=== PATIENT | male | born 1970 | race Caucasian/White ===

== ENCOUNTER 2018-10-21 12:17 | Observation (INO) | payer OTHER, SELFPAY ==
[2018-10-21] VITALS (11 sets, daily range): BP systolic 154–212; BP diastolic 97–131; PULSE 79–105; RESP 14–20; TEMP 36.8–37.1; O2SAT 98–99; BMI 44.3; BMI 43.5; BMI 44.4
--- NOTE | 2018-10-21 12:29 | EKG12_ITS ---
Test Reason : CHESST PRESSURE Blood Pressure : / mmHG Vent. Rate : 102 BPM Atrial Rate : 102 BPM P-R Int : 152 ms QRS Dur : 098 ms QT Int : 350 ms P-R-T Axes : 026 052 057 degrees QTc Int : 456 ms Sinus tachycardia Otherwise normal ECG Confirmed by ZION ROMERO, RIGO ([id number]), editor in chief newspaper REJI LIN ([id number]) on 10/23/2018 3:51:19 PM Referred By: Zofia Ba Confirmed By:RIGO DONOVAN MD
--- NOTE | 2018-10-21 12:29 | RAD_ITS ---
STUDY: X-RAY CHEST REASON FOR EXAM: Male, 48 years old. Intermittent chest pain. TECHNIQUE: Single AP portable view of the chest. COMPARISON: None. FINDINGS: EKG electrodes are seen. Elevation of the right hemidiaphragm. Scattered calcified granulomas. There is no demonstrated pleural abnormality. There is mild cardiac enlargement. Normal mediastinum and rebecca. Normal visualized pulmonary arteries. There is atherosclerotic tortuosity of the aortic arch and descending thoracic aorta. Normal visualized thoracic spine. Normal visualized ribs, clavicles, and shoulders. There is no demonstrated abnormality of the visualized soft tissue structures of the upper abdomen. RAD/Chest 1 View (Portable) IMPRESSION: Cardiomegaly. Electronically Signed: Fabiano Knight, at 13:10 EST , Service support ,
--- NOTE | 2018-10-21 12:35 | NURSING ---
NO OLD EKG TO OBTAIN.
[2018-10-21 12:54] LABS: Absolute Lymphocyte Count 2.76 X10^3/ul (0.83-4.51); Basophil# 0.02 X10^3/uL; Basophil% 0.2 % (0-1); Eosinophil# 0.15 X10^3/uL; Eosinophils% 1.4 % (0-5); Hematocrit 45.6 % (40-54); Hemoglobin 15.4 g/dl (13.0-16.5); Lymphocyte # 2.76 X10^3/ul (4.0); Lymphocyte % 25.7 % (19-41); Mean Corp Hgb Conc 33.8 g/gl (32-36); Mean Corpuscular Hgb 29.9 pg (27.0-32.0); Mean Corpuscular Volume 88.5 fL (80-94); Mean Platelet Vol. 10.4 fl (6.2-12.0); Monocyte# 0.75 X10^3/uL; Neutrophil # 7.03 X10^3/uL (2.7-7.7); Neutrophil % 65.5 % (47-70); POSITIVE COUNT NO; POSITIVE DIFFERENTIAL NO; POSITIVE MORPHOLOGY NO; Platelet Count 192 K/mm3 (150-450); RBC Distribution Width CV 12.6 % (11.6-14.6); RBC Distribution Width SD 40.4 fl (35.1-43.9); Red Blood Count 5.15 M/mm3 (4.6-6.2); White Blood Count 10.7 K/mm3 (4.4-11.0)
[2018-10-21 13:11] LABS: Anion Gap 11 (5-15); BUN 12 mg/dL (7-18); BUN/Creat Ratio 10.7 RATIO (10-20); Calcium,Total 9.1 mg/dL (8.5-10.1); Chloride 101 mmol/L (98-107); Creatinine, Serum 1.12 mg/dL (0.70-1.30); EST Glomerular Filtration Rate 75 mL/min (>60); Est Glom Filt Rate - Afr Amer 91 mL/min (>60); Estimated Creatinine Clearance 93.14 ml/min; Glucose 326 mg/dL (74-106); Potassium 3.6 mmol/L (3.5-5.1); Sodium Level 139 mmol/L (136-145)
[2018-10-21] MEDS: hydrALAZINE 20 MG/ML Vial 10 MG IV ×2 (13:29→17:42)
[2018-10-21] MEDS: Aspirin 81 MG TAB.CHEW 324 MG PO (14:28)
--- NOTE | 2018-10-21 14:28 | NURSING ---
102 WHITE CP, HTN, URG, NEW DM
--- NOTE | 2018-10-21 15:22 | PCM.HP.STD ---
Problem List (1) Chest pain Status: Acute (2) Hypertensive urgency Status: Acute (3) Diabetes type 2, uncontrolled Status: Acute (4) Morbid obesity Status: Chronic History of Present Illness Date of Admission: 10/21/18 Chief Complaint: elevated blood pressure The patient is a 48 year old M with no pmhx on no medications who does not have a PCP presents to the ER concerned about his blood pressure being elevated. He states that he had it checked today and it was 204/142, prompting him to come to the ER. He also has been experiencing chest pain off and on for the past 4 days. He states that it feels like a tight pressure, similar to a tight shirt squeezing him. Currently it is a 1/10 pain. He denies any SOB at rest or with exertion. He has no radiation of the pain. No aggravating or alleviation factors. He has no nausea, headache, blurry vision, LE edema. His mom and dad do not have a history of coronary disease. He has never smoked. He was also discovered in the ER to have severely elevated Blood sugar at 326. [] Past Medical History Past Medical History (Chronic Problems): Chronic Problems Morbid obesity (Chronic) Allergies No Known Allergies Allergy (Verified 10/21/18 12:20) Home Medications: Ambulatory Orders Medication Instructions Recorded Ibuprofen 600 mg PO PRN PRN 10/21/18 Surgical History: tonsillectomy Psychiatric History: No pertinent psych hx Lives: With Family Smoking Status: Never smoker Tobacco Use: Non-smoker Alcohol: Occasional Drugs: None - *Family History Maternal History Items: Hypertension Paternal History Items: Cancer - pancreatic, Diabetes Review of Systems Constitutional: Denies: Chills, Fever, Weight Change HEENT: Denies: Head Aches, Sinus Congestion, Sinus Drainage Cardiovascular: Reports: Chest Pain, Chest Tightness. Denies: Light Headedness, Palpitations, Syncope Respiratory: Denies: Cough, Shortness of breath at rest, Sputum production Gastrointestinal: Denies: Abdominal Pain, Nausea, Vomiting Genitourinary: Denies: Dysuria Musculoskeletal: Denies: Joint Pain, Joint Tenderness Skin: Denies: Rash, Wounds Neurological: Denies: Numbness, Tingling, Focal weakness Psychiatric: Denies: Anxiety, Depression, Homicidal Ideations, Suicidal Ideations Hematologic/ Lymphatic: Denies: Easy Bruising, Easy Bleeding VTE Information - Inpt Only VTE Present on Admission: No VTE Mechan Device Prophylaxis: None VTE Pharm Prophylaxis ordered?: Yes Patient Problems: Active and Suspected Problems Chest pain (Acute) Hypertensive urgency (Acute) Diabetes type 2, uncontrolled (Acute) - Physical Exam General: Alert, Oriented x3, Cooperative HEENT: Atraumatic, PERRLA, EOMI, Normocephalic Neck: Supple, No JVD, Negative Carotid Bruits Lungs: Clear to auscultation, Normal air movement Cardiovascular: Regular rate, No murmurs Abdomen: Bowel Sounds Present, Soft, Non Tender Extremities: No edema, Capillary Refill Less than 3 Seconds Skin: No rashes, No breakdown Musculoskeletal: No Tenderness to Palpation of Joints or Extremities Neurological: Cranial nerves II-XII grossly intact Psych/Mental Status: Normal Affect, Appropriate Vital Signs Temp Pulse Resp BP Pulse Ox 98.7 F 105 H 14 170/104 H 99 10/21/18 12:17 10/21/18 14:25 10/21/18 14:25 10/21/18 14:25 10/21/18 14:25 Oxygen Delivery Method Room Air Weight: 336 lb 3.279 oz Body Mass Index (BMI) 44.3 Laboratory Tests Past 24 Hrs 10/21/18 10/21/18 12:25 12:25 WBC 10.7 RBC 5.15 Hgb 15.4 Hct 45.6 MCV 88.5 MCH 29.9 MCHC 33.8 RDW 12.6 RDW Differential 40.4 Plt Count 192 MPV 10.4 Immature Gran % (Auto) 0.200 Neut % (Auto) 65.5 Lymph % (Auto) 25.7 [place] % (Auto) 7.0 Eos % (Auto) 1.4 Baso % (Auto) 0.2 Absolute Neuts (auto) 7.0 Absolute Lymphs (auto) 2.76 Total Counted Not Reportable Sodium 139 Potassium 3.6 Chloride 101 Carbon Dioxide 27.0 Anion Gap 11 BUN 12 Creatinine 1.12 Estim Creat Clear Calc 93.14 Est GFR (MDRD) Af Amer 91 Est GFR (MDRD) Non-Af 75 BUN/Creatinine Ratio 10.7 Glucose 326 H Calcium 9.1 Troponin I < 0.015 Assessment/Plan All Active Problems Chest pain (Acute) Hypertensive urgency (Acute) Diabetes type 2, uncontrolled (Acute) 1. Chest pain - CXR/Trop, EKG neg. Cycle enzymes, repeat AM ekg. Nuclear stress in AM. PRN nitro. Check lipid panel. 2. HTN urgency - start Lisinopril/HCTZ. PRN hydralazine. 3. New onset DMt2 with morbid obesity - start SSI + Weight based lantus. Check A1C. Nutrition/diabetic education. 4. Multiple risk factors for SHOLA - recommend o/p sleep study. DVT ppx: lovenox This patient was seen by Jose Miguel Jose PA-C under the supervision of Dr. Ba.
--- NOTE | 2018-10-21 15:48 | CASEMGMT ---
RN CM Assessment Introduced role of RN CM to patient and Zahida at bedside. Patient is alert, oriented and able to participate in RN CM Assessment. Care providers, pharmacy, and demographics verified. Presentation: Admitted for CP, Hypertensive Urgency, New DM PCP: None. Patient states applied this morning to [place]. Preferred Pharmacy: [facility] Insurance: MMO Prescription Benefit: Yes LNOK: Zahida Jiménez Living Arrangements: Lives with in a 2 story home. Works for [employer]. Independent with ambulation and ADL's. Transportation: Drives, Zahida to drive on [place]. DME: None, no preference, prefers DME Company affiliated with his Insurance plan. HHC: None in past, no preference on Agency. SNF: None in past, no preference on Agency. DC PLAN: Home with , may need HH RN for DM Education/teaching, DME Glucometer. May need list of in network PCP's. S. CASH Rosario
--- NOTE | 2018-10-21 15:57 | EKG12_ITS ---
Test Reason : CP Blood Pressure : / mmHG Vent. Rate : 083 BPM Atrial Rate : 083 BPM P-R Int : 154 ms QRS Dur : 100 ms QT Int : 396 ms P-R-T Axes : 038 -01 000 degrees QTc Int : 465 ms Normal sinus rhythm Normal ECG No previous ECGs available Confirmed by ZION ROMERO, RIGO ([id number]), staff editor REJI LIN ([id number]) on 10/23/2018 4:00:39 PM Referred By: Zofia Ba Confirmed By:RIGO DONOVAN MD
--- NOTE | 2018-10-21 16:07 | ED.VISSUMM ---
- ER Visit Summary Date of Service: 10/21/18 Chief Complaint: Chest pain History of Present Illness: The patient is a 48 M who presents the emergency department with intermittent chest tightness. He states that on Saturday he began having indigestion-like sensation bloating and pressure in his chest. He was good all weekend but returned more severe today. This made him wish to seek evaluation. He states that about 10 days ago he was at physical therapy for a Workmen's Comp. hand crush injury was noticed that his blood pressure was 202/135 he was advised he needed to see primary care. He has not yet established a primary care but is in the process of doing so. At school this morning blood pressure was 202/142. He does not smoke. He does not currently take any medications. He is concerned he may be diabetic. He has no first-degree relatives with coronary artery disease. He is not had any aspirin. Physical Examination: Afebrile noted hypertension 212/131 Gen: Well-nourished well-developed obese Head: Normocephalic atraumatic Eyes: Perrl EOMI ENT: TMs clear no rhinorrhea moist mucous membranes Neck: Supple no lymphadenopathy no JVD nontender CVS: Regular rate rhythm no murmurs normal S1-S2 Respiratory: No distress clear to auscultation bilaterally chest nontender Abdomen: Soft nontender nondistended normal bowel sounds no masses Back: Nontender Extremity: Nontender no edema Skin: Normal color no rash Neuro: alert orientated ?3 CN II-XII intact normal strength sensation reflexes gait cerebellar Psych: Normal affect normal mood Test Results: Blood sugar 326. Initial troponin negative. EKG sinus at a rate of 102 without ACS features. Chest x-ray showed mild cardiomegaly. Emergency Department Course and Treatment: Patient received aspirin and hydralazine blood pressure is improved. His blood pressure has. Patient essentially has undiagnosed hypertension. It does fall into the hypertensive urgency category. He has untreated diabetes. He is obese. JAN risk score is 1. Plan is admission into the hospital for further care. Impression: 1. Acute chest pain 2. Hypertensive urgency 3. New onset diabetes This note was generated with [employer] dictation software. It may contain incorrect words, spelling, and punctuation that were not noted in review of the chart prior to signing ED Disposition - Plan for ED Patient: Disposition: Acute [facility]
--- NOTE | 2018-10-21 16:10 | ED.DCSUM_ITS ---
- ER Visit Summary Date of Service: 10/21/18 Chief Complaint: Chest pain History of Present Illness: The patient is a 48 M who presents the emergency department with intermittent chest tightness. He states that on Saturday he began having indigestion-like sensation bloating and pressure in his chest. He was good all weekend but returned more severe today. This made him wish to seek evaluation. He states that about 10 days ago he was at physical therapy for a Workmen's Comp. hand crush injury was noticed that his blood pressure was 202/135 he was advised he needed to see primary care. He has not yet established a primary care but is in the process of doing so. At school this morning blood pressure was 202/142. He does not smoke. He does not currently take any medications. He is concerned he may be diabetic. He has no first- degree relatives with coronary artery disease. He is not had any aspirin. Physical Examination: Afebrile noted hypertension 212/131 Gen: Well-nourished well-developed obese Head: Normocephalic atraumatic Eyes: Perrl EOMI ENT: TMs clear no rhinorrhea moist mucous membranes Neck: Supple no lymphadenopathy no JVD nontender CVS: Regular rate rhythm no murmurs normal S1-S2 Respiratory: No distress clear to auscultation bilaterally chest nontender Abdomen: Soft nontender nondistended normal bowel sounds no masses Back: Nontender Extremity: Nontender no edema Skin: Normal color no rash Neuro: alert orientated ?3 CN II-XII intact normal strength sensation reflexes gait cerebellar Psych: Normal affect normal mood Test Results: Blood sugar 326. Initial troponin negative. EKG sinus at a rate of 102 without ACS features. Chest x-ray showed mild cardiomegaly. Emergency Department Course and Treatment: Patient received aspirin and hydralazine blood pressure is improved. His blood pressure has. Patient essentially has undiagnosed hypertension. It does fall into the hypertensive urgency category. He has untreated diabetes. He is obese. JAN risk score is 1. Plan is admission into the hospital for further care. Impression: 1. Acute chest pain 2. Hypertensive urgency 3. New onset diabetes This note was generated with [employer] dictation software. It may contain incorrect words, spelling, and punctuation that were not noted in review of the chart prior to signing ED Disposition - Plan for ED Patient: Disposition: Acute [facility]
[2018-10-21 16:30] LABS: Magnesium 1.9 mg/dL (1.6-2.6); Thyroid Stim Hormone (TSH) 1.35 uIU/mL (0.358-3.74)
[2018-10-21 16:35] LABS: Bedside Glucose 261 mg/dL (70-110)
[2018-10-21 17:08] LABS: Hemoglobin A1c 10.5 % (4.2-6.3)
[2018-10-21] MEDS: Insulin Lispro 100 UNIT/ML INSULN.PEN SC ×2 (17:43→22:16)
[2018-10-21] MEDS: Acetaminophen 325 MG Tablet 650 MG PO (20:16)
[2018-10-21 22:20] LABS: Bedside Glucose 264 mg/dL (70-110)
[2018-10-22] VITALS (16 sets, daily range): BP systolic 149–173; BP diastolic 93–107; PULSE 80–90; RESP 16–18; TEMP 36.6–37; O2SAT 98–99
[2018-10-22] MEDS: 0.9% Normal Saline 1,000 ML 100 ML IV (00:12)
[2018-10-22] MEDS: Acetaminophen 325 MG Tablet 650 MG PO (04:11)
[2018-10-22] MEDS: hydrALAZINE 20 MG/ML Vial 10 MG IV (04:11)
[2018-10-22 05:24] LABS: Hematocrit 42.2 % (40-54); Hemoglobin 14.5 g/dl (13.0-16.5); Mean Corp Hgb Conc 34.4 g/gl (32-36); Mean Corpuscular Hgb 30.5 pg (27.0-32.0); Mean Corpuscular Volume 88.8 fL (80-94); Mean Platelet Vol. 10.4 fl (6.2-12.0); Platelet Count 182 K/mm3 (150-450); RBC Distribution Width CV 12.6 % (11.6-14.6); RBC Distribution Width SD 40.4 fl (35.1-43.9); Red Blood Count 4.75 M/mm3 (4.6-6.2)
[2018-10-22] MEDS: Lisinopril 20 MG Tablet PO (05:36)
[2018-10-22] MEDS: Aspirin E.C. 81 MG Tablet PO (05:36)
[2018-10-22 05:43] LABS: ALB/GLOB Ratio 0.9 RATIO (0.9-2.4); AST(SGOT) 23 U/L (15-37); Alanine Aminotransfer ALT/SGPT 36 U/L (16-61); Albumin, Serum 3.3 g/dL (3.2-5.0); Alkaline Phosphatase 129 U/L (45-117); Anion Gap 12 (5-15); BUN 11 mg/dL (7-18); BUN/Creat Ratio 14.1 RATIO (10-20); Calcium,Total 8.4 mg/dL (8.5-10.1); Chloride 103 mmol/L (98-107); Cholesterol 137 mg/dL (200); Creatinine, Serum 0.78 mg/dL (0.70-1.30); EST Glomerular Filtration Rate 114 mL/min (>60); Est Glom Filt Rate - Afr Amer 138 mL/min (>60); Estimated Creatinine Clearance 133.74 ml/min; Globulin 3.7 g/dL (2.2-4.2); Glucose 271 mg/dL (74-106); High Density Lipoprotein 33 mg/dL; Potassium 3.3 mmol/L (3.5-5.1); Sodium Level 140 mmol/L (136-145); Triglycerides 209 mg/dL; Very Low Density Lipoprotein 42 mg/dL (5-40)
[2018-10-22 05:44] LABS: Scan Indicated on CBC? Y/N NO
[2018-10-22 05:54] LABS: International Normalized Ratio 1.1; Partial Thromboplast Time 27.3 Seconds (24.1-36.2); Prothrombin Time (Protime)PT. 13.8 SECONDS (11.7-14.9)
--- NOTE | 2018-10-22 05:55 | EKG12_ITS ---
Test Reason : AM EKG Blood Pressure : / mmHG Vent. Rate : 094 BPM Atrial Rate : 094 BPM P-R Int : 152 ms QRS Dur : 102 ms QT Int : 390 ms P-R-T Axes : 043 030 005 degrees QTc Int : 487 ms Normal sinus rhythm Prolonged QT Abnormal ECG When compared with ECG of 21-OCT-2018 16:02, MANUAL COMPARISON REQUIRED, DATA IS UNCONFIRMED Confirmed by ZION ROMERO, RIGO ([id number]), writer editor REJI LIN ([id number]) on 10/23/2018 4:07:53 PM Referred By: Zofia Ba Confirmed By:RIGO DONOVAN MD
[2018-10-22 06:41] LABS: Bedside Glucose 264 mg/dL (70-110)
[2018-10-22] MEDS: Magnesium Oxide 400 MG Tablet 800 MG PO (09:15)
[2018-10-22] MEDS: Insulin Lispro 100 UNIT/ML INSULN.PEN SC ×3 (11:35→21:51)
[2018-10-22 11:45] LABS: Bedside Glucose 269 mg/dL (70-110)
--- NOTE | 2018-10-22 11:50 | STRESSREP ---
Stress Test Report Pharmacologic myocardial perfusion stress test. 48-year-old man with a history of chest pain. Stress protocol: Resting EKG demonstrates normal sinus rhythm with a rate of 88 bpm blood pressure is 166/118 mmHg. 0.4 mg of regadenoson was infused per usual protocol followed Intravenous infection injection continuous EKG monitoring was performed. The maximum heart rate attained was 116 bpm which was 66% maximal protected heart rate. The maximum workload was 1 metabolic equivalent. At rest there were no ST or T wave changes noted to suggest ischemia at peak infusion nonspecific ST-T wave changes were noted. No clinical angina was noted the resting blood pressure was 166/8018 maximum pressure was 170/112 mmHg. Myocardial perfusion protocol. 14.9 mCi of technetium 99m sestamibi was injected at rest. 0.4 mg of regadenoson was infused per usual protocol. At peak infusion 44.8 mCi of technetium 99m sestamibi was injected and stress images were obtained stress and rest images were reconstructed and compared in the short axis vertical and horizontal long axis. Gated images were also obtained the next Perfusion SPECT analysis: Review of the stress images demonstrate normal uptake of tracer noted in all areas of myocardium. The resting images similarly demonstrate normal uptake of tracer noted in all areas of the myocardium. No evidence of reversibility and did suggest ischemia. Gated SPECT analysis: The gated ejection fraction is noted to be 58%. Conclusion: Normal pharmacologic myocardial perfusion stress test. Preserved ejection fraction.
[2018-10-22] MEDS: hydroCHLOROthiazide 25 MG Tablet PO (12:06)
--- NOTE | 2018-10-22 12:46 | ECHOD_ITS ---
Reason For Study: CP Procedure This was a 2D Doppler, Color Flow transthoracic echocardiogram. Exam performed portable in patient room. Left Ventricle Normal size and thickness. The estimated ejection fraction is 65 %. Normal diastology for age. No regional wall motion abnormalities noted. Right Ventricle Normal size and thickness. Normal systolic function. Atria Normal left atrium. Normal right atrium. Normal atrial septum. Mitral Valve The mitral valve is structurally normal. No prolapse or stenosis seen. Tricuspid Valve Normal tricuspid valve. Unable to estimate RV systolic pressure due to inadequate jet, pulmonary artery pressure probably normal. Pulmonic Valve Normal pulmonic valve. Great Vessels Normal aortic root. Normal arch. Normal inferior vena cava. Inferior vena cava collapse with sniff. Pericardium/Pleural No pericardial effusion. MMode/2D Measurements & Calculations LVIDd: 5.0 cm IVSd: 1.6 cm Ao root diam: 4.0 cm LVIDs: 3.5 cm LVPWd: 1.6 cm LA dimension: 4.5 cm FS: 31.3 % LAV(MOD-sp4): 61.3 ml LA A4 area: 20.8 cm2 Time Measurements MV dec time: 0.17 sec Doppler Measurements & Calculations MV E max domenico: 78.9 cm/sec Lat Peak E' Domenico: 7.7 cm/sec Med Peak E' Domenico: 6.3 cm/sec MV A max domenico: 83.2 cm/sec E/E' lat: 10.3 E/E' med: 12.6 MV E/A: 0.95 MV V2 max: 94.4 cm/sec MV P1/2t max domenico: 79.0 cm/sec Ao V2 max: 127.1 cm/sec MV max P.6 mmHg MV P1/2t: 75.2 msec Ao max P.5 mmHg MV V2 mean: 55.5 cm/sec Ao V2 mean: 89.3 cm/sec MV mean P.4 mmHg MV dec slope: 307.7 cm/sec2 Ao mean P.5 mmHg MV V2 VTI: 21.6 cm MVA(P1/2t): 2.9 cm2 Ao V2 VTI: 22.6 cm LV V1 max: 114.7 cm/sec PA V2 max: 99.2 cm/sec LV V1 max P.3 mmHg LV V1 mean P.5 mmHg LV V1 mean: 74.1 cm/sec LV V1 VTI: 19.6 cm Interpretation Summary The estimated ejection fraction is 65 %. Normal diastology for age. Unable to estimate RV systolic pressure due to inadequate jet, pulmonary artery pressure probably normal. There is no comparison study available. Ordering Physician: Jose Miguel Jose Referring Physician: Zofia Ba Performed By: Franki Garner RCS
[2018-10-22] MEDS: Metoprolol(XL)Succ 50 MG Tablet PO (13:08)
--- NOTE | 2018-10-22 14:42 | PN_ITS ---
<Jose Miguel Jose - Last Filed: 10/22/18 14:39> Subjective: FARRELL early this AM, resolved with tylenol. No further CP, no tightness/heaviness/squeezing. No palp or LH. Negative stress test this AM. Pt agreeable to one more night to improve glucose and blood pressure. - Physical Exam General: Alert, Oriented x3, Cooperative HEENT: Atraumatic, PERRLA, EOMI, Normocephalic Neck: Supple, No JVD, Negative Carotid Bruits Lungs: Clear to auscultation, Normal air movement Cardiovascular: Regular rate, No murmurs Abdomen: Bowel Sounds Present, Soft, Non Tender, Obese Extremities: No edema, Capillary Refill Less than 3 Seconds Skin: No rashes, No breakdown Musculoskeletal: No Tenderness to Palpation of Joints or Extremities Neurological: Cranial nerves II-XII grossly intact Psych/Mental Status: Normal Affect, Appropriate Vital Signs Temp Pulse Resp BP Pulse Ox 98.2 F 87 18 167/103 H 98 10/22/18 12:40 10/22/18 13:08 10/22/18 12:40 10/22/18 13:08 10/22/18 12:40 Oxygen Delivery Method Room Air Weight: 330 lb 0.512 oz Body Mass Index (BMI) 43.5 Intake and Output for Last 24 Hours 10/20/18 10/21/18 10/22/18 23:59 23:59 23:59 Intake Total 240 / 240 1508 / 1508 Balance 240 / 240 1508 / 1508 Laboratory Tests Past 24 Hrs 10/21/18 10/21/18 10/21/18 12:25 12:25 16:34 WBC RBC Hgb Hct MCV MCH MCHC RDW RDW Differential Plt Count MPV PT INR APTT Sodium Potassium Chloride Carbon Dioxide Anion Gap BUN Creatinine Estim Creat Clear Calc Est GFR (MDRD) Af Amer Est GFR (MDRD) Non-Af BUN/Creatinine Ratio Glucose Hemoglobin A1c 10.5 H Calcium Magnesium 1.9 Total Bilirubin AST ALT Alkaline Phosphatase Troponin I < 0.015 Total Protein Albumin Globulin Albumin/Globulin Ratio Triglycerides Cholesterol LDL Cholesterol VLDL Cholesterol HDL Cholesterol TSH 1.35 10/21/18 10/22/18 10/22/18 20:05 05:04 05:04 WBC 10.0 RBC 4.75 Hgb 14.5 Hct 42.2 MCV 88.8 MCH 30.5 MCHC 34.4 RDW 12.6 RDW Differential 40.4 Plt Count 182 MPV 10.4 PT INR APTT Sodium 140 Potassium 3.3 L Chloride 103 Carbon Dioxide 25.0 Anion Gap 12 BUN 11 Creatinine 0.78 Estim Creat Clear Calc 133.74 Est GFR (MDRD) Af Amer 138 Est GFR (MDRD) Non-Af 114 BUN/Creatinine Ratio 14.1 Glucose 271 H Hemoglobin A1c Calcium 8.4 L Magnesium Total Bilirubin 0.90 AST 23 ALT 36 Alkaline Phosphatase 129 H Troponin I < 0.015 Total Protein 7.0 Albumin 3.3 Globulin 3.7 Albumin/Globulin Ratio 0.9 Triglycerides 209 H Cholesterol 137 LDL Cholesterol 62 VLDL Cholesterol 42 H HDL Cholesterol 33 L TSH 10/22/18 05:04 WBC RBC Hgb Hct MCV MCH MCHC RDW RDW Differential Plt Count MPV PT 13.8 INR 1.1 APTT 27.3 Sodium Potassium Chloride Carbon Dioxide Anion Gap BUN Creatinine Estim Creat Clear Calc Est GFR (MDRD) Af Amer Est GFR (MDRD) Non-Af BUN/Creatinine Ratio Glucose Hemoglobin A1c Calcium Magnesium Total Bilirubin AST ALT Alkaline Phosphatase Troponin I Total Protein Albumin Globulin Albumin/Globulin Ratio Triglycerides Cholesterol LDL Cholesterol VLDL Cholesterol HDL Cholesterol TSH POC Glucose 10/22/18 10/22/18 10/21/18 11:33 06:37 22:15 POC Glucose 269 H 264 H 264 H 10/21/18 16:09 POC Glucose 261 H Medical Necessity - Tobacco Use Smoking Status: Never smoker Tobacco Use: Non-smoker Assessment/Plan All Active Problems Chest pain (Acute) Hypertensive urgency (Acute) Diabetes type 2, uncontrolled (Acute) 1. Chest pain - CXR/Trop, EKG neg. enzymes negative, repeat ekg negative. Nuclear stress was negative. Lipid panel done. Increased ASCVD risk. Start st atin and baby aspirin. - Echo in AM. 2. HTN urgency - HCTZ increased. Continue SAM. Added toprol. 3. New onset DMt2 with morbid obesity - A1C 10.5. SSI, increase lantus, start metformin. Provide dietary education and education on insulin home therapy and glucometry. 4. Multiple risk factors for SHOLA - recommend o/p sleep study. DVT ppx: lovenox This patient was seen by Jose Miguel Jose PA-C under the supervision of Dr. Beard. <Cha Beard - Last Filed: 10/29/18 09:03> - Physical Exam Vital Signs Temp Pulse Resp BP Pulse Ox 98.6 F 80 16 144/88 H 99 10/23/18 14:30 10/23/18 15:24 10/23/18 14:30 10/23/18 14:30 10/23/18 14:30 Oxygen Delivery Method Room Air Weight: 330 lb 0.512 oz Body Mass Index (BMI) 43.5
[2018-10-22 16:56] LABS: Bedside Glucose 247 mg/dL (70-110)
[2018-10-22] MEDS: Atorvastatin Calcium 20 MG Tablet PO (21:50)
[2018-10-22 22:11] LABS: Bedside Glucose 240 mg/dL (70-110)
[2018-10-23] VITALS (9 sets, daily range): BP systolic 135–150; BP diastolic 78–88; PULSE 75–83; RESP 16; TEMP 36–37; O2SAT 96–99
[2018-10-23 06:27] LABS: Anion Gap 10 (5-15); BUN 13 mg/dL (7-18); Calcium,Total 8.5 mg/dL (8.5-10.1); Chloride 104 mmol/L (98-107); Creatinine, Serum 0.87 mg/dL (0.70-1.30); EST Glomerular Filtration Rate 101 mL/min (>60); Est Glom Filt Rate - Afr Amer 122 mL/min (>60); Glucose 182 mg/dL (74-106); Potassium 3.4 mmol/L (3.5-5.1); Sodium Level 141 mmol/L (136-145)
[2018-10-23 06:55] LABS: Bedside Glucose 173 mg/dL (70-110)
[2018-10-23] MEDS: Metoprolol(XL)Succ 50 MG Tablet PO (08:42)
[2018-10-23] MEDS: Lisinopril 20 MG Tablet PO (08:43)
[2018-10-23] MEDS: Aspirin E.C. 81 MG Tablet PO (08:43)
[2018-10-23] MEDS: hydroCHLOROthiazide 25 MG Tablet PO (08:43)
[2018-10-23] MEDS: Insulin Lispro 100 UNIT/ML INSULN.PEN SC ×2 (08:46→12:32)
--- NOTE | 2018-10-23 11:55 | CASEMGMT ---
RN ZACHARY NOTE: Pt sitting up in recliner chair in room. Intro self to pt. Pt provided with information from [facility] website on Disease mgmt program and their contact information. John GARG RN CM
[2018-10-23 12:00] LABS: Bedside Glucose 212 mg/dL (70-110)
--- NOTE | 2018-10-23 15:25 | DCINST_ITS ---
- Discharge Diagnoses Current Active Problems: Current Active and Chronic Problems Chest pain (Acute) Hypertensive urgency (Acute) Diabetes type 2, uncontrolled (Acute) Morbid obesity (Chronic) You will use the following diet at home:: Calorie/Carbohydrate Controlled (specify 1200, 1400, etc) - 2200 calories, low salt and low fat Your food should be the consistency of: Regular Your liquids should be the consistency of: Regular/Thin Discharge Activity: Return to Normal Activity, - - I recommend you start an exercise program. Work up to 30 minutes of aerobic exercise daily. Exercise will help to bring the blood sugars down. Call your doctor if you observe: Fever of 101 or Higher, Shortness of breath, Dizziness, Fainting spells, Swelling in the ankles, Chest pain, Calf discomfort Instructions: Hypoglycemia (Low Blood Sugar), Losing Weight, Why Diets Don't Work Additional Instructions: 1. I recommend that you follow up with [facility] diabetic clinic, run by the dietitians, for further education in managing your weight and your blood sugars. You will need a referral from your primary care physician. 2. If you can get your weight down the blood sugars will come down and you may not need to be on Insulin in the future. 3. Check your blood sugars twice a day and write the results down. Bring the blood sugar record to your next visit with your PCP. Check the blood sugars fasting in the morning and just before supper. 4. You will need to have the potassium checked at your next doctor's appt. Pending Tests on Discharge: none Allergies/Adverse Reactions: Allergies No Known Allergies Allergy (Verified 10/21/18 12:20) Medications to take at Discharge Ibuprofen 600 mg PO PRN PRN 10/21/18 Hydrochlorothiazide [Hctz] 25 mg PO DAILY #30 tablet 10/23/18 Insulin Glargine [Lantus SoloStar Pen] 35 units SC QHS #11 pen 10/23/18 Lisinopril [Zestril] 20 mg PO DAILY #30 tablet 10/23/18 Metformin HCl 850 mg PO BIDAC #60 tablet 10/23/18 Metoprolol(XL)Succ [Toprol Xl (Beta [place])] 50 mg PO DAILY #30 tablet 10/23/18 Pen Needle, Diabetic [Pen Needle] 1 each MC DAILY #30 dis.needle 10/23/18 The following prescriptions were given: Hydrochlorothiazide [Hctz] 25 mg PO DAILY #30 tablet Insulin Glargine [Lantus SoloStar Pen] 35 units SC QHS #11 pen Lisinopril [Zestril] 20 mg PO DAILY #30 tablet Metformin HCl 850 mg PO BIDAC #60 tablet Metoprolol(XL)Succ [Toprol Xl (Beta [place])] 50 mg PO DAILY #30 tablet Pen Needle, Diabetic [Pen Needle] 1 each MC DAILY #30 dis.needle Primary Care Physician: Care Physician,No Primary [Primary Care Provider] - Test Results: Test results from this visit will be discussed in further detail at your follow- up appointment, if applicable. Proposed Discharge Date: 10/23/18
--- NOTE | 2018-10-23 16:02 | DS.PCM_ITS ---
Discharge Date and Diagnosis Date of Admission: 10/21/18 Date of Discharge: 10/23/18 - Primary Discharge Diagnosis Active and Suspected Problems Chest pain (Acute) Hypertensive urgency (Acute) New Onset Diabetes type 2, uncontrolled (Acute) Sleep disordered breathing-suspect SHOLA Hypokalemia - Secondary Discharge Diagnosis Chronic Problems Morbid obesity (Chronic) Hospital Course and Treatment Imaging Results: Clinical Impression(s) from Imaging Studies Chest X-Ray 10/21/18 12:29 IMPRESSION: Cardiomegaly. Electronically Signed: Fabiano Khananjel, at 13:10 EST , Service support , Laboratory Results - last 24 hr 10/22/18 10/22/18 10/23/18 16:18 21:49 05:40 Sodium 141 Potassium 3.4 L Chloride 104 Carbon Dioxide 27.0 Anion Gap 10 BUN 13 Creatinine 0.87 Estim Creat Clear Calc 119.90 Est GFR (MDRD) Af Amer 122 Est GFR (MDRD) Non-Af 101 BUN/Creatinine Ratio 15.0 Glucose 182 H Calcium 8.5 POC Glucose 247 H 240 H 10/23/18 10/23/18 06:49 11:49 Sodium Potassium Chloride Carbon Dioxide Anion Gap BUN Creatinine Estim Creat Clear Calc Est GFR (MDRD) Af Amer Est GFR (MDRD) Non-Af BUN/Creatinine Ratio Glucose Calcium POC Glucose 173 H 212 H none Operations: None Procedures: 2-D Echocardiogram - Interpretation Summary The estimated ejection fraction is 65 %. Normal diastology for age. Unable to estimate RV systolic pressure due to inadequate jet, pulmonary artery pressure probably normal. There is no comparison study available., Stress test - Conclusion: Normal pharmacologic myocardial perfusion stress test. Preserved ejection fraction. EF 58% Summary of Care Provided: The patient is a 48 year old morbidly obese male on no medications who presented to the emergency department at [facility] on 10/21/2018 after having his blood pressure checked at work and finding it to be 204/142. He stated he had been experiencing chest pain off and on for the preceding 4 days. He described this as a tightness. He denied shortness of breath at rest or with exertion. There was no radiation of the pain and no aggravating or alleviating factors. Random blood sugar in the emergency department was 326. Hemoglobin A1c was 10.5%. He was admitted to a monitored bed on PCU and started on lisinopril/hydrochlorothiazide and as needed IV hydralazine. He was also started on Lantus and sliding insulin scale. Dietitian consult was ordered. Serial cardiac enzymes were ordered and were negative. Lipid panel showed a LDL of 62 with an HDL of 33 and triglycerides of 209. A pharmacologic nuclear stress test was negative and the gated nuclear ejection fraction was 58%. Toprol-XL was added to his drug regimen for better blood pressure control and he was started on metformin 850 mg twice daily. On 10/23/2018 he was afebrile with heart rate of 83. Lead pressure was 144/88 and his respiratory rate was 16 with a pulse ox of 99% on room air. Fasting blood sugar on that date was 173 and the lunchtime Accu-Chek was 212. He was discharged home with prescriptions for hydrochlorothiazide 25 mg daily, lisinopril 20 mg daily, Lantus 35 units nightly, metformin 850 mg twice daily, metoprolol XL 50 mg daily and a prescription for a glucometer, pen needles, lancets and test strips. He was instructed to find a primary care physician to follow-up with. He told me that he had an appt with Dr. Resendez to establish care for the following week. He was instructed to keep a BS record and take this with him to the first visit with Dr. Resendez. PHYSICAL EXAM: GENERAL: alert, oriented X 3, Cooperative, NAD ORAL: moist mucosa, no mucosal lesions NECK: No JVD, supple, trachea midline LUNGS: CTA, symmetric chest expansion HEART: RRR, Normal S1 and S2, no rub, no gallop ABDOMEN: soft, NT, ND, BS present, no guarding with palpation, obese EXTREMITIES: no edema, no cyanosis, no calf tenderness SKIN: No rashes, no breakdown NEUROLOGIC: no focal neurologic deficits PSYCH: appropriate, normal affect, pleasant This note was generated with Red Roveration software. It may contain incorrect words, spelling, and punctuation that were not noted in checking the note before signing. - Physical Exam Vital Signs Temp Pulse Resp BP Pulse Ox 97.7 F L 80 16 135/78 H 99 10/23/18 08:34 10/23/18 10:54 10/23/18 08:34 10/23/18 08:42 10/23/18 08:34 Oxygen Delivery Method Room Air Weight: 330 lb 0.512 oz Body Mass Index (BMI) 43.5 Intake and Output for Last 24 Hours 10/21/18 10/22/18 10/23/18 23:59 23:59 23:59 Intake Total 240 / 240 2308 / 2308 960 / 960 Balance 240 / 240 2308 / 2308 960 / 960 Laboratory Tests Past 24 Hrs 10/23/18 05:40 Sodium 141 Potassium 3.4 L Chloride 104 Carbon Dioxide 27.0 Anion Gap 10 BUN 13 Creatinine 0.87 Estim Creat Clear Calc 119.90 Est GFR (MDRD) Af Amer 122 Est GFR (MDRD) Non-Af 101 BUN/Creatinine Ratio 15.0 Glucose 182 H Calcium 8.5 POC Glucose 10/23/18 10/23/18 10/22/18 11:49 06:49 21:49 POC Glucose 212 H 173 H 240 H 10/22/18 16:18 POC Glucose 247 H Discharge Activity: Return to Normal Activity, - - I recommend you start an exercise program. Work up to 30 minutes of aerobic exercise daily. Exercise will help to bring the blood sugars down. Call your doctor if you observe: Fever of 101 or Higher, Shortness of breath, Dizziness, Fainting spells, Swelling in the ankles, Chest pain, Calf discomfort Home Medications: Medications to take at Discharge Ibuprofen 600 mg PO PRN PRN 10/21/18 Hydrochlorothiazide [Hctz] 25 mg PO DAILY #30 tablet 10/23/18 Insulin Glargine [Lantus SoloStar Pen] 35 units SC QHS #11 pen 10/23/18 Lisinopril [Zestril] 20 mg PO DAILY #30 tablet 10/23/18 Metformin HCl 850 mg PO BIDAC #60 tablet 10/23/18 Metoprolol(XL)Succ [Toprol Xl (Beta [place])] 50 mg PO DAILY #30 tablet 10/23/18 Pen Needle, Diabetic [Pen Needle] 1 each MC DAILY #30 [email or web address] 10/23/18 Following Prescrptions Were Given to Patient: Hydrochlorothiazide [Hctz] 25 mg PO DAILY #30 tablet Insulin Glargine [Lantus SoloStar Pen] 35 units SC QHS #11 pen Lisinopril [Zestril] 20 mg PO DAILY #30 tablet Metformin HCl 850 mg PO BIDAC #60 tablet Metoprolol(XL)Succ [Toprol Xl (Beta [place])] 50 mg PO DAILY #30 tablet Pen Needle, Diabetic [Pen Needle] 1 each MC DAILY #30 [email or web address] Primary Care Physician: Care Physician,No Primary [Primary Care Provider] - Patient Instructions: Losing Weight, Hypoglycemia (Low Blood Sugar), Why Diets Don't Work Disposition: Home Minutes spent on discharge:: 35 Patient Condition:: Good Medical Necessity - Tobacco Use Smoking Status: Never smoker Tobacco Use: Non-smoker Meaningful Use Info Meaningful Use Diagnoses (Choose all that apply): None applicable Code Visit Inpatient E&M: 42818 Disch Hosp
== END 2018-10-23 15:32 | disposition home or self-care (01) ==
LOC: ED 12:54 → PCU 14:27
PROVIDERS: Physician Assistant; Admitting Provider Family Medicine; Emergency Provider Emergency Medicine; Referring Provider Family Medicine; Visit Provider Internal Medicine
DX: R07.89 Other chest pain (principal); I16.0 Hypertensive urgency; E11.65 Type 2 diabetes mellitus with hyperglycemia; E87.6 Hypokalemia; I10 Essential (primary) hypertension; E66.01 Morbid (severe) obesity due to excess calories; Z68.41 Body mass index [BMI] 40.0-44.9, adult; Z71.3 Dietary counseling and surveillance
CPT/HCPCS: 36415; 71045; 78452; 80048; 80053; 80061; 82962; 83036; 83735; 84443; 84484; 85025; 85027; 85610; 85730; 93005; 93017; 93306; 96361; 96374; 96376; 97802; 99218; 99283; A9500; J7030; Q9957; A4216; G0378; J2785

== ENCOUNTER → 2018-10-29 12:23 | Outpatient (CLI) | payer OTHER, SELFPAY ==
[2018-10-21 15:06] VITALS: BMI 43.5
[2018-10-29 14:39] LABS: Anion Gap 11 (5-15); BUN 30 mg/dL (7-18); BUN/Creat Ratio 25.2 RATIO (10-20); Calcium,Total 9.1 mg/dL (8.5-10.1); Chloride 106 mmol/L (98-107); Creatinine, Serum 1.19 mg/dL (0.70-1.30); EST Glomerular Filtration Rate 70 mL/min (>60); Est Glom Filt Rate - Afr Amer 85 mL/min (>60); Glucose 143 mg/dL (74-106); Potassium 3.5 mmol/L (3.5-5.1); Sodium Level 141 mmol/L (136-145)
[2018-10-29 14:55] LABS: Vitamin B12 345 pg/mL (211-911); Vitamin D,25 Hydroxy 6.4 ng/mL (29.95-100.01)
== END ==
PROVIDERS: Family Provider Family Medicine; PCP Family Medicine; Referring Provider Family Medicine; Visit Provider Family Medicine
DX: I10 Essential (primary) hypertension (principal); R53.83 Other fatigue
CPT/HCPCS: 36415; 80048; 82306; 82607

== ENCOUNTER → 2018-10-30 09:00 | Outpatient (CLI) | payer OTHER, SELFPAY ==
[2018-10-21 15:06] VITALS: BMI 43.5
[2018-10-30 10:31] LABS: Microalbumin,Random Urine 65.6 mg/L (NO RANGE EST.); Microalbumin:Creatinine Ratio 47.9 mg/g CRE (<30 mg/g CRE)
== END ==
PROVIDERS: Family Provider Family Medicine; PCP Family Medicine; Referring Provider Family Medicine; Visit Provider Family Medicine
DX: E11.65 Type 2 diabetes mellitus with hyperglycemia (principal)
CPT/HCPCS: 82043; 82570

== ENCOUNTER 2018-11-20 08:00 | Outpatient (RCR) | payer OTHER, SELFPAY ==
[2018-10-21 15:06] VITALS: BMI 43.5
== END 2018-11-20 23:59 | disposition home or self-care (01) ==
LOC: DC 08:00
PROVIDERS: Family Provider Family Medicine; PCP Family Medicine; Referring Provider Family Medicine; Visit Provider Family Medicine
DX: E11.65 Type 2 diabetes mellitus with hyperglycemia (principal); Z71.3 Dietary counseling and surveillance
CPT/HCPCS: 97802; G0108

== ENCOUNTER → 2018-11-21 08:29 | Outpatient (CLI) | payer OTHER, SELFPAY ==
[2018-10-21 15:06] VITALS: BMI 43.5
[2018-11-21 10:23] LABS: Anion Gap 6 (5-15); BUN 25 mg/dL (7-18); BUN/Creat Ratio 21.6 RATIO (10-20); Calcium,Total 8.9 mg/dL (8.5-10.1); Chloride 106 mmol/L (98-107); Creatinine, Serum 1.16 mg/dL (0.70-1.30); EST Glomerular Filtration Rate 72 mL/min (>60); Est Glom Filt Rate - Afr Amer 87 mL/min (>60); Glucose 131 mg/dL (74-106); Potassium 3.7 mmol/L (3.5-5.1); Sodium Level 139 mmol/L (136-145)
== END ==
PROVIDERS: Family Provider Family Medicine; PCP Family Medicine; Referring Provider Family Medicine; Visit Provider Family Medicine
DX: I10 Essential (primary) hypertension (principal)
CPT/HCPCS: 36415; 80048

== ENCOUNTER 2019-01-17 15:26 | Observation (INO) | payer OTHER, SELFPAY ==
[2018-10-21 15:06] VITALS: BMI 43.5
[2019-01-17] VITALS (7 sets, daily range): BP systolic 132–142; BP diastolic 84–104; PULSE 74–92; RESP 12–22; TEMP 35.3–36.9; O2SAT 95–99; BMI 41.8; BMI 41.3
[2019-01-17 16:05] LABS: Absolute Lymphocyte Count 2.27 X10^3/ul (0.83-4.51); Absolute Neutrophil Count 9.8 X10^3/uL (2.0-7.7); Basophil# 0.01 X10^3/uL; Basophil% 0.1 % (0-1); Eosinophil# 0.18 X10^3/uL; Eosinophils% 1.4 % (0-5); Hematocrit 39.9 % (40-54); Lymphocyte # 2.27 X10^3/ul (4.0); Lymphocyte % 17.4 % (19-41); Mean Corp Hgb Conc 35.1 g/gl (32-36); Mean Corpuscular Volume 88.5 fL (80-94); Mean Platelet Vol. 9.8 fl (6.2-12.0); Monocyte# 0.77 X10^3/uL; Monocyte% 5.9 % (0-10); Neutrophil % 74.9 % (47-70); Platelet Count 209 K/mm3 (150-450); RBC Distribution Width CV 12.8 % (11.6-14.6); RBC Distribution Width SD 41.1 fl (35.1-43.9); Red Blood Count 4.51 M/mm3 (4.6-6.2); White Blood Count 13.1 K/mm3 (4.4-11.0)
[2019-01-17 16:06] LABS: POSITIVE COUNT NO; POSITIVE DIFFERENTIAL NO; POSITIVE MORPHOLOGY NO
[2019-01-17 16:26] LABS: ALB/GLOB Ratio 0.9 RATIO (0.9-2.4); AST(SGOT) 23 U/L (15-37); Alanine Aminotransfer ALT/SGPT 33 U/L (16-61); Albumin, Serum 3.7 g/dL (3.2-5.0); Alkaline Phosphatase 93 U/L (45-117); Anion Gap 10 (5-15); BUN 23 mg/dL (7-18); BUN/Creat Ratio 18.4 RATIO (10-20); Calcium,Total 9.3 mg/dL (8.5-10.1); Chloride 105 mmol/L (98-107); Creatinine, Serum 1.25 mg/dL (0.70-1.30); EST Glomerular Filtration Rate 66 mL/min (>60); Est Glom Filt Rate - Afr Amer 80 mL/min (>60); Estimated Creatinine Clearance 83.45 ml/min; Globulin 4.3 g/dL (2.2-4.2); Glucose 121 mg/dL (74-106); Potassium 3.3 mmol/L (3.5-5.1); Sodium Level 142 mmol/L (136-145)
--- NOTE | 2019-01-17 16:52 | CT_ITS ---
STUDY: CT BRAIN WITHOUT CONTRAST REASON FOR EXAM: Male, 48 years old. Dizziness and nausea and vomiting RADIATION DOSAGE (If Supplied By Facility): CTDIvol = ( 44.99 ) mGy, DLP = ( 779.24 ) mGycm TECHNIQUE: Transaxial CT imaging of the brain was performed without administration of intravenous contrast material. Individualized dose optimization techniques were used for this CT. COMPARISON: No relevant priors. FINDINGS: Normal soft tissue structures. Normal calvarium. Normal size ventricles and extra-axial spaces for the patient's age. Normal white matter tracts of the cerebral hemispheres. Normal basal ganglia and thalami. Normal brainstem. Normal cerebellum. There is no intracranial hemorrhage. There are no findings of an acute ischemic infarction. Normal visualized paranasal sinuses. CT/Brain/Head without Contrast IMPRESSION: Normal unenhanced CT scan of the brain. Electronically Signed: Andres Cuellar DO at 18:40 EDT Tel , Service support ,
--- NOTE | 2019-01-17 16:52 | EKG12_ITS ---
Test Reason : Blood Pressure : / mmHG Vent. Rate : 075 BPM Atrial Rate : 075 BPM P-R Int : 164 ms QRS Dur : 102 ms QT Int : 400 ms P-R-T Axes : 033 000 002 degrees QTc Int : 446 ms Normal sinus rhythm Poor R-Wave Progression Confirmed by VAIBHAV ROMERO, YVETTE ([id number]), primer expeditor and drier NATHEN GORDON ([id number]) on 01/21/2019 9:09:05 AM Referred By: Devin Amor Confirmed By:YVETTE ESPOSITO MD
--- NOTE | 2019-01-17 16:54 | ED.VISSUMM ---
- ER Visit Summary Date of Service: 01/17/19 Chief Complaint: Dizziness History of Present Illness: The patient is a 48 M with history of diabetes and blood pressure who presents for 3 days of intermittent vertigo. First episode was 3 days ago and patient was at rest with onset. The spinning sensation lasted approximately 20 minutes. It resolved on its own. Patient had associated nausea, vomiting and diaphoresis. It occurred 2 additional times over the last few days, each time with this spinning sensation for approximately 20 minutes, and not instigated by any particular movement. Patient states it is worse if he moves and it is improved by sleeping. He was seen by his primary care doctor yesterday and was orthostatic positive. His doctor decreased his blood pressure medication dosage. Patient has been able to keep his medications down due to the nausea and vomiting. Today he had onset again of the symptoms and this time has been having the to go for over 2 hours. He denies any head injury. No fever, vision changes, including blurry or double vision, chest pain, shortness of breath, numbness or weakness in the arms or legs. No tinnitus or decrease in hearing. Physical Examination: Vital signs: afebrile, hemodynamically stable, no hypoxia on room air General: well nourished, well developed, appears like he does not feel well, laying very still in bed Skin: warm, sweaty, no rash, no pallor HEENT: normocephalic and atraumatic; PERRL, EOMI, horizontal nystagmus with leftward gaze, horizontal nystagmus with upward and downward gaze, moist mucous membranes Cardiovascular: regular rate and rhythm without murmurs, no peripheral edema, 2+ pulses all distal extremities Respiratory: No increased work of breathing, lungs are clear to auscultation bilaterally, no rales, rhonchi or wheezing Abdominal: Abdomen is soft, nontender with normoactive bowel sounds, no guarding or rebound, no masses MSK: Moves all extremities, no deformities, normal strength Neuro: Awake and alert, oriented ?4. No facial droop, sensation and motor function intact and symmetric, normal cerebellar function, NIH equals 0 Test Results: Abnormal Lab Results 01/17/19 01/17/19 01/17/19 15:36 15:55 15:55 WBC 13.1 H RBC 4.51 L Hgb 14.0 Hct 39.9 L MCV 88.5 MCH 31.0 MCHC 35.1 RDW 12.8 RDW Differential 41.1 Plt Count 209 MPV 9.8 Immature Gran % (Auto) 0.300 Neut % (Auto) 74.9 H Lymph % (Auto) 17.4 L [place] % (Auto) 5.9 Eos % (Auto) 1.4 Baso % (Auto) 0.1 Absolute Neuts (auto) 9.8 H Absolute Lymphs (auto) 2.27 Total Counted Not Reportable PT INR APTT Sodium 142 Potassium 3.3 L Chloride 105 Carbon Dioxide 27.0 Anion Gap 10 BUN 23 H Creatinine 1.25 Estim Creat Clear Calc 83.45 Est GFR (MDRD) Af Amer 80 Est GFR (MDRD) Non-Af 66 BUN/Creatinine Ratio 18.4 Glucose 121 H Calcium 9.3 Total Bilirubin 0.60 AST 23 ALT 33 Alkaline Phosphatase 93 Troponin I Total Protein 8.0 Albumin 3.7 Globulin 4.3 H Albumin/Globulin Ratio 0.9 POC Glucose 125 H 01/17/19 01/17/19 15:55 15:55 WBC RBC Hgb Hct MCV MCH MCHC RDW RDW Differential Plt Count MPV Immature Gran % (Auto) Neut % (Auto) Lymph % (Auto) [place] % (Auto) Eos % (Auto) Baso % (Auto) Absolute Neuts (auto) Absolute Lymphs (auto) Total Counted PT 13.4 INR 1.0 APTT 26.9 Sodium Cancelled Potassium Cancelled Chloride Cancelled Carbon Dioxide Cancelled Anion Gap Cancelled BUN Cancelled Creatinine Cancelled Estim Creat Clear Calc Est GFR (MDRD) Af Amer Cancelled Est GFR (MDRD) Non-Af Cancelled BUN/Creatinine Ratio Cancelled Glucose Cancelled Calcium Cancelled Total Bilirubin AST ALT Alkaline Phosphatase Troponin I < 0.015 Total Protein Albumin Globulin Albumin/Globulin Ratio POC Glucose Clinical Impression(s) from Imaging Studies Brain CT 01/17/19 16:52 IMPRESSION: Normal unenhanced CT scan of the brain. Electronically Signed: Andres Cuellar DO at 18:40 EDT Tel , Service support , Chest X-Ray 01/17/19 17:08 IMPRESSION: Stable, nonacute portable x-ray examination of the chest. Electronically Signed: Hola Becker MD at 17:24 EDT , Service support , Medications Given Discontinued Medications Aspirin (Aspirin) 325 mg PO X1 ONE Stop: 01/17/19 20:45 Last Admin: 01/17/19 21:51 Dose: 325 mg Sodium Chloride () 1,000 mls @ 999 mls/hr IV .Q1H1M ONE Stop: 01/17/19 17:52 Last Admin: 01/17/19 17:04 Dose: 999 mls/hr Lorazepam (Ativan) 1 mg IV X1 ONE Stop: 01/17/19 20:45 Last Admin: 01/17/19 21:08 Dose: 1 mg Promethazine HCl (Phenergan) 12.5 mg IV X1 ONE Stop: 01/17/19 16:54 Last Admin: 01/17/19 17:04 Dose: 12.5 mg Emergency Department Course and Treatment: Patient appears uncomfortable and is actively having vertigo still. He was given IV fluids and Phenergan for his nausea. Because of the 4 days of intermittent symptoms, work-up was performed. Head CT showed no intracranial hemorrhage or mass. EKG showed sinus rhythm without any ischemic changes. Patient had leukocytosis of 13.1, which may be secondary to the marginalization of leukocytes from vomiting. No significant lab derangements. Troponin negative. Patient remained vertiginous but had nausea improved after medications. He was ordered Ativan IV for further relief. The Bellwood-Hallpike maneuver had been performed and patient had persistent nystagmus without fatigue. No Tressa maneuver was attempted because patient's non-fatigable vertigo during the Micah-Hallpike. Because patient is having the vertigo in multiple positions, it is not noted to be fatigable, this is concerning for possible posterior origin. Patient's episodes prior to today of 20 minutes each with spontaneous resolution could have been TIAs, with the persistent symptoms today being secondary to stroke. Because peripheral vertigo versus central vertigo cannot be established, patient will be admitted for further work-up and also management of his symptoms. Treatment Plan: [] Disposition: [] Impression: acute vertigo, concern for posterior circulation stroke This note was generated with Dragon dictation software. It may contain incorrect words, spelling, and punctuation that were not noted in review of the chart prior to signing ED Disposition - Plan for ED Patient: Disposition: Acute Care Hospital [facility]
[2019-01-17 16:55] LABS: Bedside Glucose 125 mg/dL (70-110)
[2019-01-17] MEDS: 0.9% Normal Saline 1,000 ML 999 ML IV (17:04)
[2019-01-17] MEDS: proMETHazine 25 MG/ML Syringe 12.5 MG IV (17:04)
--- NOTE | 2019-01-17 17:08 | RAD_ITS ---
STUDY: X-RAY CHEST REASON FOR EXAM: Male, 48 years old. Dizziness TECHNIQUE: AP COMPARISON: 10/21/2018 FINDINGS: EKG leads project over the chest. Right hemidiaphragm remains slightly elevated. No airspace consolidation. There is no demonstrated pleural abnormality. There is mild cardiac enlargement. Normal mediastinum and rebecca. Normal visualized pulmonary arteries. Normal visualized aortic arch and descending thoracic aorta. Normal visualized thoracic spine. Normal visualized ribs, clavicles, and shoulders. There is no demonstrated abnormality of the visualized soft tissue structures of the upper abdomen. RAD/Chest 1 View IMPRESSION: Stable, nonacute portable x-ray examination of the chest. Electronically Signed: Hola Becker MD at 17:24 EDT , Service support ,
[2019-01-17 17:53] LABS: Prothrombin Time (Protime)PT. 13.4 SECONDS (11.7-14.9)
[2019-01-17 17:54] LABS: Partial Thromboplast Time 26.9 Seconds (24.1-36.2)
[2019-01-17] MEDS: LORazepam 2 MG/ML Syringe 1 MG IV (21:08)
[2019-01-17] MEDS: Aspirin 325 MG Tablet PO (21:51)
--- NOTE | 2019-01-17 21:58 | HP.PCM_ITS ---
Problem List (1) Vertigo Status: Acute (2) Chest pain Status: Resolved (3) Hypertensive urgency Status: Resolved (4) Diabetes type 2, uncontrolled Status: Chronic (5) Morbid obesity Status: Chronic History of Present Illness Date of Admission: 01/17/19 Chief Complaint: Dizziness and vertigo for 3 days The patient is a 48 year old M with history of hypertension, diabetes mellitus type 2 and obstructive sleep apnea, last admitted in September 2018 for hypertensive urgency and chest pain came to ED with dizziness, vertigo for last 3 days. For first 3 days it was brief episode of a spinning of room lasting for about 20 minutes but today it got persistent. Patient denies any focal symptoms of weakness, numbness tingling, confusion or syncope. Patient felt like near fall/gait instability because of vertigo. During previous admission, stress test was normal. Echo reported as EF 65% with normal diastole. Unable to estimate RVSP. Patient was given Ativan to live dizziness. Other lab abnormalities K3.3. Chest x-ray and CT brain reported normal. EKG normal sinus rhythm 75 bpm. Troponin normal. [] Past Medical History Past Medical History (Chronic Problems): Chronic Problems Diabetes type 2, uncontrolled (Chronic) Morbid obesity (Chronic) Allergies No Known Allergies Allergy (Verified 01/17/19 15:28) Home Medications: Ambulatory Orders Medication Instructions Recorded Hydrochlorothiazide [Hctz] 25 mg PO DAILY #30 tablet 10/23/18 Insulin Glargine [Lantus SoloStar 35 units SC QHS #11 pen 10/23/18 Pen] Lisinopril [Zestril] 20 mg PO DAILY #30 tablet 10/23/18 Cholecalciferol (Vitamin D3) 5,000 unit PO DAILY 01/17/19 [Vitamin D3] Metformin HCl 1,000 mg PO BIDAC 01/17/19 Metoprolol(XL)Succ [Toprol Xl 25 mg PO DAILY 01/17/19 (Beta [place])] Surgical History: tonsillectomy Psychiatric History: No pertinent psych hx Smoking Status: Never smoker - *Family History Maternal History Items: Hypertension Paternal History Items: Cancer - pancreatic, Diabetes Review of Systems Constitutional: Denies: Chills, Fever, Weight Change HEENT: Reports: - - Had sinus infection about 3 to 4 weeks ago. Denies: Head Aches, Sinus Congestion, Sinus Drainage Cardiovascular: Reports: Light Headedness. Denies: Chest Pain, Chest Pressure, Chest Tightness, Palpitations Respiratory: Denies: Cough, Shortness of breath at rest, Sputum production Gastrointestinal: Denies: Abdominal Pain, Nausea, Vomiting Genitourinary: Denies: Dysuria, Hematuria, Hesitancy, Incontinence Musculoskeletal: Denies: Joint Pain, Joint Tenderness Skin: Denies: Rash, Wounds Neurological: Denies: Blurred vision, Double vision, Change in Speech, Slurred speech, Difficulty swallowing, Focal weakness, Numbness, Tingling Psychiatric: Denies: Anxiety, Depression, Homicidal Ideations, Suicidal Ideations Hematologic/ Lymphatic: Denies: Easy Bruising, Easy Bleeding VTE Information - Inpt Only VTE Present on Admission: No VTE Mechan Device Prophylaxis: SCD's VTE Pharm Prophylaxis ordered?: Yes Patient Problems: Active and Suspected Problems Vertigo (Acute) - Physical Exam General: Alert, Oriented x3, Cooperative HEENT: Atraumatic, PERRLA, EOMI, Normocephalic Neck: Supple, No JVD, Negative Carotid Bruits Lungs: Clear to auscultation, No rhonchi, No wheeze, No rales, Diminished - Air entry is diminished., - - Obesity hypoventilation/sleep apnea Cardiovascular: Regular rate, No murmurs Abdomen: Bowel Sounds Present, Soft, Non Tender, Non-Distended Extremities: No edema, Capillary Refill Less than 3 Seconds Skin: No rashes, No breakdown Musculoskeletal: No Tenderness to Palpation of Joints or Extremities Neurological: Cranial nerves II-XII grossly intact, Deep Tendon Reflexes 2+/4 and Symmetrical, Neuro grossly intact, Motor Exam 5/5 strength throughout, - - [id number] test and heel doss test are negative. NIH scale 0. Gait and walking not assessed because of patient vertigo. Psych/Mental Status: Normal Affect, Appropriate Vital Signs Temp Pulse Resp BP Pulse Ox 95.6 F L 75 16 137/84 H 99 01/17/19 15:27 01/17/19 18:00 01/17/19 18:00 01/17/19 18:00 01/17/19 18:00 Oxygen Delivery Method Room Air Weight: 317 lb Body Mass Index (BMI) 41.8 Finger Stick Blood Glucose 125 Laboratory Tests Past 24 Hrs 05/25/19 05/25/19 05/25/19 15:55 15:55 15:55 WBC 13.1 H RBC 4.51 L Hgb 14.0 Hct 39.9 L MCV 88.5 MCH 31.0 MCHC 35.1 RDW 12.8 RDW Differential 41.1 Plt Count 209 MPV 9.8 Immature Gran % (Auto) 0.300 Neut % (Auto) 74.9 H Lymph % (Auto) 17.4 L [place] % (Auto) 5.9 Eos % (Auto) 1.4 Baso % (Auto) 0.1 Absolute Neuts (auto) 9.8 H Absolute Lymphs (auto) 2.27 Total Counted Not Reportable PT 13.4 INR 1.0 APTT 26.9 Sodium 142 Potassium 3.3 L Chloride 105 Carbon Dioxide 27.0 Anion Gap 10 BUN 23 H Creatinine 1.25 Estim Creat Clear Calc 83.45 Est GFR (MDRD) Af Amer 80 Est GFR (MDRD) Non-Af 66 BUN/Creatinine Ratio 18.4 Glucose 121 H Calcium 9.3 Total Bilirubin 0.60 AST 23 ALT 33 Alkaline Phosphatase 93 Troponin I Total Protein 8.0 Albumin 3.7 Globulin 4.3 H Albumin/Globulin Ratio 0.9 01/17/19 15:55 WBC RBC Hgb Hct MCV MCH MCHC RDW RDW Differential Plt Count MPV Immature Gran % (Auto) Neut % (Auto) Lymph % (Auto) [place] % (Auto) Eos % (Auto) Baso % (Auto) Absolute Neuts (auto) Absolute Lymphs (auto) Total Counted PT INR APTT Sodium Cancelled Potassium Cancelled Chloride Cancelled Carbon Dioxide Cancelled Anion Gap Cancelled BUN Cancelled Creatinine Cancelled Estim Creat Clear Calc Est GFR (MDRD) Af Amer Cancelled Est GFR (MDRD) Non-Af Cancelled BUN/Creatinine Ratio Cancelled Glucose Cancelled Calcium Cancelled Total Bilirubin AST ALT Alkaline Phosphatase Troponin I < 0.015 Total Protein Albumin Globulin Albumin/Globulin Ratio POC Glucose 01/17/19 15:36 POC Glucose 125 H Assessment/Plan All Active Problems Chest pain (Resolved) Hypertensive urgency (Resolved) Vertigo (Acute) The patient is a 48 year old M with history of hypertension, diabetes mellitus type 2 and obstructive sleep apnea, last admitted in September 2018 for hypertensive urgency and chest pain came to ED with dizziness, vertigo for last 3 days. For first 3 days it was brief episode of a spinning of room lasting for about 20 minutes but today it got persistent. Patient denies any focal symptoms of weakness, numbness tingling, confusion or syncope. Patient felt like near fall/gait instability because of vertigo. During previous admission, stress test was normal. Echo reported as EF 65% with normal diastole. Unable to estimate RVSP. Patient was given Ativan to live dizziness. Other lab abnormalities K3.3. Chest x-ray and CT brain reported normal. EKG normal sinus rhythm 75 bpm. Troponin normal. 1. Dizziness, vertigo most probably peripheral from vestibular disorder/vascular neuronitis but rule out central cause: Patient is being admitted in PCU. Currently NIH scale is 0. MRI brain ordered. If MRI brain is positive for stroke, will do further work-up including CTA head and neck and echo. Patient had echo recently as mentioned above. 2. Diabetes mellitus type 2: Currently blood sugar is controlled. Glucose 121 in BMP. Accu-Chek before meals and at bedtime and cover with Humalog sliding scale. Hold metformin. Home dose of Lantus 35 units of nightly daily continued. 3. Hypertension with history of hypertensive urgency: Currently blood pressure is controlled. On lisinopril 20 mg daily. Patient also on metoprolol and HCTZ. Blood pressure 136/86, 142/104. Did not take blood pressure medications today and therefore start medications from today. 4. Obstructive sleep apnea on CPAP: Continue home setting of CPAP. DVT prophylaxis: On Lovenox 40 minutes subcu daily Clinical Impression(s) from Imaging Studies Brain CT 01/17/19 16:52 IMPRESSION: Normal unenhanced CT scan of the brain. Chest X-Ray 01/17/19 17:08 IMPRESSION: Stable, nonacute portable x-ray examination of the chest. Laboratory Results 01/17/19 15:36: POC Glucose 125 H 01/17/19 15:55: WBC 13.1 H, RBC 4.51 L, Hgb 14.0, Hct 39.9 L, MCV 88.5, MCH 31.0, MCHC 35.1, RDW 12.8, RDW Differential 41.1, Plt Count 209, MPV 9.8, Immature Gran % (Auto) 0.300, Neut % (Auto) 74.9 H, Lymph % (Auto) 17.4 L, [place] % (Auto) 5.9, Eos % (Auto) 1.4, Baso % (Auto) 0.1, Absolute Neuts (auto) 9.8 H, Absolute Lymphs (auto) 2.27, Total Counted Not Reportable 01/17/19 15:55: Sodium 142, Potassium 3.3 L, Chloride 105, Carbon Dioxide 27.0, Anion Gap 10, BUN 23 H, Creatinine 1.25, Estim Creat Clear Calc 83.45, Est GFR (MDRD) Af Amer 80, Est GFR (MDRD) Non-Af 66, BUN/Creatinine Ratio 18.4, Glucose 121 H, Calcium 9.3, Total Bilirubin 0.60, AST 23, ALT 33, Alkaline Phosphatase 93, Total Protein 8.0, Albumin 3.7, Globulin 4.3 H, Albumin/Globulin Ratio 0.9 01/17/19 15:55: PT 13.4, INR 1.0, APTT 26.9 Troponin I < 0.015 [] Code Visit OBSV E&M: 60707 Initial observation care L3
[2019-01-17] MEDS: 0.9% Normal Saline 1,000 ML 100 ML IV (22:49)
[2019-01-17] MEDS: Lisinopril 20 MG Tablet PO (23:07)
[2019-01-17] MEDS: Metoprolol(XL)Succ 25 MG Tablet PO (23:07)
[2019-01-17 23:41] LABS: Bedside Glucose 133 mg/dL (70-110)
[2019-01-18] VITALS (7 sets, daily range): BP systolic 110–134; BP diastolic 59–85; PULSE 67–77; RESP 14–18; TEMP 36.6–36.8; O2SAT 95–99; BMI 41.3
--- NOTE | 2019-01-18 05:55 | MRI_ITS ---
STUDY: MRI BRAIN WITHOUT CONTRAST REASON FOR EXAM: Male, 48 years old. Dizziness and nausea. TECHNIQUE: Standardized multiplanar fat and water weighted pulse sequences were obtained. COMPARISON: None. FINDINGS: Normal size of the ventricles and extra-axial spaces for the patient's age. Normal white matter tracts of the supratentorial brain. There is no evidence for recent intracranial ischemia or other cause of cytotoxic edema on diffusion weighted imaging (DWI). Normal T2* images of the brain without demonstrated susceptibility artifact. There is no demonstrated hemosiderin stain. Normal bilateral basal ganglia. Normal thalami. There is no extra-axial fluid accumulation. Normal flow voids within the major intracranial circulation suggesting patency by spin echo criteria. Normal sella turcica, pituitary gland, infundibular stalk, optic chiasm and hypothalamus. Normal tectal plate and pineal gland. Normal midbrain, zee and medulla. Normal cerebellum. Normal basal cisterns. Normal bilateral temporal bones. Normal bilateral internal auditory canals. No demonstrated orbital abnormality, within the constraints of a routine brain study. Left sphenoid sinus fluid layering in mucosal thickening is present with sinus expansion to the region of the left petrous region. Normal calvarium and skull base. Normal visualized soft tissue structures. Normal visualized upper cervical spine. Incidental left dermal parietal benign appearing lesion is present measuring 1.3 cm. MRI/Brain without Contrast IMPRESSION: No evidence of acute intracranial bleed, mass or ischemia. Sphenoid sinus disease as above. Electronically Signed: Jm Cardozo DO at 10:05 EDT , Service support ,
[2019-01-18 06:23] LABS: Absolute Neutrophil Count 7.3 X10^3/uL (2.0-7.7); Basophil# 0.01 X10^3/uL; Basophil% 0.1 % (0-1); Eosinophil# 0.13 X10^3/uL; Eosinophils% 1.1 % (0-5); Hematocrit 39.1 % (40-54); Hemoglobin 13.3 g/dl (13.0-16.5); Lymphocyte % 27.6 % (19-41); Mean Corpuscular Hgb 30.4 pg (27.0-32.0); Mean Corpuscular Volume 89.3 fL (80-94); Mean Platelet Vol. 10.3 fl (6.2-12.0); Monocyte% 7.8 % (0-10); Neutrophil # 7.34 X10^3/uL (2.7-7.7); Neutrophil % 63.1 % (47-70); Platelet Count 212 K/mm3 (150-450); RBC Distribution Width CV 12.9 % (11.6-14.6); RBC Distribution Width SD 41.4 fl (35.1-43.9); Red Blood Count 4.38 M/mm3 (4.6-6.2); White Blood Count 11.6 K/mm3 (4.4-11.0)
[2019-01-18 06:28] LABS: POSITIVE COUNT NO; POSITIVE DIFFERENTIAL NO; POSITIVE MORPHOLOGY NO
[2019-01-18] MEDS: Meclizine HCl 25 MG Tablet PO ×2 (06:36→11:50)
[2019-01-18 06:42] LABS: Anion Gap 5 (5-15); BUN 19 mg/dL (7-18); BUN/Creat Ratio 17.3 RATIO (10-20); Calcium,Total 8.6 mg/dL (8.5-10.1); Chloride 107 mmol/L (98-107); Cholesterol 120 mg/dL (200); EST Glomerular Filtration Rate 77 mL/min (>60); Est Glom Filt Rate - Afr Amer 93 mL/min (>60); Glucose 77 mg/dL (74-106); High Density Lipoprotein 33 mg/dL; Potassium 3.7 mmol/L (3.5-5.1); Sodium Level 143 mmol/L (136-145); Triglycerides 116 mg/dL; Very Low Density Lipoprotein 23 mg/dL (5-40)
[2019-01-18 06:56] LABS: Bedside Glucose 80 mg/dL (70-110)
[2019-01-18] MEDS: 0.9% Normal Saline 1,000 ML 100 ML IV (10:04)
[2019-01-18] MEDS: Aspirin E.C. 81 MG Tablet PO (10:04)
[2019-01-18] MEDS: hydroCHLOROthiazide 25 MG Tablet PO (10:05)
[2019-01-18] MEDS: Metoprolol(XL)Succ 25 MG Tablet PO (10:05)
[2019-01-18] MEDS: Lisinopril 20 MG Tablet PO (10:06)
--- NOTE | 2019-01-18 11:08 | DCINST_ITS ---
- Discharge Diagnoses Current Active Problems: Current Active and Chronic Problems Vertigo (Acute) You will use the following diet at home:: Calorie/Carbohydrate Controlled (specify 1200, 1400, etc) Discharge Activity: Return to Normal Activity Call your doctor if you observe: Shortness of breath, Dizziness, Fainting spells, Chest pain Allergies/Adverse Reactions: Allergies No Known Allergies Allergy (Verified 01/17/19 15:28) Medications to take at Discharge Hydrochlorothiazide [Hctz] 25 mg PO DAILY #30 tablet 10/23/18 Insulin Glargine [Lantus SoloStar Pen] 35 units SC QHS #11 pen 10/23/18 Lisinopril [Zestril] 20 mg PO DAILY #30 tablet 10/23/18 Cholecalciferol (Vitamin D3) [Vitamin D3] 5,000 unit PO DAILY 01/17/19 Metformin HCl 1,000 mg PO BIDAC 01/17/19 Metoprolol(XL)Succ [Toprol Xl ([place])] 25 mg PO DAILY 01/17/19 Meclizine HCl [Antivert] 25 mg PO 4X/DAY PRN PRN #30 tablet 01/18/19 The following prescriptions were given: Meclizine HCl [Antivert] 25 mg PO 4X/DAY PRN PRN #30 tablet PRN Reason: dizziness/vertigo Primary Care Physician: David Resendez MD [Primary Care Provider] - Please follow up with your Primary Care Physician in: 1 Week Test Results: Test results from this visit will be discussed in further detail at your follow- up appointment, if applicable. Please Follow Up With: Enrique Araiza MD - ENT When: Call for appt next week Proposed Discharge Date: 01/18/19
--- NOTE | 2019-01-18 11:09 | PCM.DC.SUM ---
<Antonella Middleton - Last Filed: 01/18/19 11:16> Discharge Date and Diagnosis Date of Admission: 01/17/19 Date of Discharge: 01/18/19 - Primary Discharge Diagnosis Active and Suspected Problems 1. Vertigo, suspected BPPV 2. Type 2 diabetes mellitus 3. Hypertension 4. SHOLA 5. Obesity - Secondary Discharge Diagnosis Chronic Problems Diabetes type 2, uncontrolled (Chronic) Morbid obesity (Chronic) Hospital Course and Treatment Imaging Results: Diagnostic Data Brain CT 01/17/19 16:52 IMPRESSION: Normal unenhanced CT scan of the brain. Electronically Signed: Andres Cuellar DO at 18:40 EDT Tel , Service support , Chest X-Ray 01/17/19 17:08 IMPRESSION: Stable, nonacute portable x-ray examination of the chest. Electronically Signed: Hola Becker MD at 17:24 EDT , Service support , Brain MRI 01/18/19 05:55 IMPRESSION: No evidence of acute intracranial bleed, mass or ischemia. Sphenoid sinus disease as above. Electronically Signed: Jm Cardozo DO at 10:05 EDT , Service support , Operations: None Procedures: None Summary of Care Provided: The patient is a 48 year old M admitted 01/17/2019 due to dizziness and vertigo for 3 days. 1. Vertigo, suspected BPPV-CVA ruled out. Brain CT unremarkable. MRI of brain with no evidence of acute intracranial bleed, mass or ischemia. Chest x-ray unremarkable. Patient had recent echo September 2017 which showed an EF of 65%. Neuro exam unremarkable with exception of nystagmus with left gaze. Meclizine as needed for vertigo, dizziness. Follow-up with primary care provider in 1 week. Follow-up with ENT next week. 2. Type 2 diabetes mellitus-continue home metformin, Lantus regimen. 3. Hypertension-stable, continue home HCTZ, lisinopril, metoprolol regimen. 4. SHOLA-continue home CPAP regimen. 5. Obesity-encourage diet lifestyle modifications. 6. Mild leukocytosis-suspect reactive. Afebrile. No evidence of infection. General: Alert, Oriented x3, Cooperative HEENT: Atraumatic, PERRLA, EOMI, Normocephalic Neck: Supple, No JVD, Negative Carotid Bruits Lungs: Clear to auscultation, diminished Cardiovascular: Regular rate, No murmurs Abdomen: Bowel Sounds Present, Soft, Non Tender, Non-Distended Extremities: No edema, Capillary Refill Less than 3 Seconds Skin: No rashes, No breakdown Musculoskeletal: No Tenderness to Palpation of Joints or Extremities Neurological: Cranial nerves II-XII grossly intact, Neuro grossly intact, mild nystagmus with left gaze Psych/Mental Status: Normal Affect, Appropriate Patient seen and examined prior to discharge. Physical assessment as noted above. Patient is stable for discharge with follow up recommendations as noted above. This patient was seen by WILBER Alcaraz under the supervision of Dr. English. - Physical Exam Vital Signs Temp Pulse Resp BP Pulse Ox 98.0 F 71 18 134/85 H 95 01/18/19 10:00 01/18/19 10:05 01/18/19 10:00 01/18/19 10:00 01/18/19 10:00 Oxygen Delivery Method Room Air Weight: 311 lb 8.211 oz Body Mass Index (BMI) 41.3 Finger Stick Blood Glucose 125 Intake and Output for Last 24 Hours 01/16/19 01/17/19 01/18/19 23:59 23:59 23:59 Intake Total 392 / 392 606 / 606 Balance 392 / 392 606 / 606 Laboratory Tests Past 24 Hrs 01/17/19 01/17/19 01/17/19 15:55 15:55 15:55 WBC 13.1 H RBC 4.51 L Hgb 14.0 Hct 39.9 L MCV 88.5 MCH 31.0 MCHC 35.1 RDW 12.8 RDW Differential 41.1 Plt Count 209 MPV 9.8 Immature Gran % (Auto) 0.300 Neut % (Auto) 74.9 H Lymph % (Auto) 17.4 L [place] % (Auto) 5.9 Eos % (Auto) 1.4 Baso % (Auto) 0.1 Absolute Neuts (auto) 9.8 H Absolute Lymphs (auto) 2.27 Total Counted Not Reportable PT 13.4 INR 1.0 APTT 26.9 Sodium 142 Potassium 3.3 L Chloride 105 Carbon Dioxide 27.0 Anion Gap 10 BUN 23 H Creatinine 1.25 Estim Creat Clear Calc 83.45 Est GFR (MDRD) Af Amer 80 Est GFR (MDRD) Non-Af 66 BUN/Creatinine Ratio 18.4 Glucose 121 H Calcium 9.3 Magnesium Total Bilirubin 0.60 AST 23 ALT 33 Alkaline Phosphatase 93 Troponin I Total Protein 8.0 Albumin 3.7 Globulin 4.3 H Albumin/Globulin Ratio 0.9 Triglycerides Cholesterol LDL Cholesterol VLDL Cholesterol HDL Cholesterol 01/17/19 01/18/19 01/18/19 15:55 05:20 05:20 WBC 11.6 H RBC 4.38 L Hgb 13.3 Hct 39.1 L MCV 89.3 MCH 30.4 MCHC 34.0 RDW 12.9 RDW Differential 41.4 Plt Count 212 MPV 10.3 Immature Gran % (Auto) 0.300 Neut % (Auto) 63.1 Lymph % (Auto) 27.6 [place] % (Auto) 7.8 Eos % (Auto) 1.1 Baso % (Auto) 0.1 Absolute Neuts (auto) 7.3 Absolute Lymphs (auto) 3.20 Total Counted Not Reportable PT INR APTT Sodium Cancelled 143 Potassium Cancelled 3.7 Chloride Cancelled 107 Carbon Dioxide Cancelled 31.0 Anion Gap Cancelled 5 BUN Cancelled 19 H Creatinine Cancelled 1.10 Estim Creat Clear Calc 92.10 Est GFR (MDRD) Af Amer Cancelled 93 Est GFR (MDRD) Non-Af Cancelled 77 BUN/Creatinine Ratio Cancelled 17.3 Glucose Cancelled 77 Calcium Cancelled 8.6 Magnesium 2.0 Total Bilirubin AST ALT Alkaline Phosphatase Troponin I < 0.015 Total Protein Albumin Globulin Albumin/Globulin Ratio Triglycerides 116 Cholesterol 120 LDL Cholesterol 64 VLDL Cholesterol 23 HDL Cholesterol 33 L POC Glucose 01/18/19 01/17/19 01/17/19 06:35 23:04 15:36 POC Glucose 80 133 H 125 H Discharge Diet: 1800 Calorie Control Diet, Carb Control Diet Discharge Activity: Return to Normal Activity Call your doctor if you observe: Shortness of breath, Dizziness, Fainting spells, Chest pain Home Medications: Medications to take at Discharge Hydrochlorothiazide [Hctz] 25 mg PO DAILY #30 tablet 10/23/18 Insulin Glargine [Lantus SoloStar Pen] 35 units SC QHS #11 pen 10/23/18 Lisinopril [Zestril] 20 mg PO DAILY #30 tablet 10/23/18 Cholecalciferol (Vitamin D3) [Vitamin D3] 5,000 unit PO DAILY 01/17/19 Metformin HCl 1,000 mg PO BIDAC 01/17/19 Metoprolol(XL)Succ [Toprol Xl ([place])] 25 mg PO DAILY 01/17/19 Meclizine HCl [Antivert] 25 mg PO 4X/DAY PRN PRN #30 tablet 01/18/19 Ondansetron HCl [Zofran] 4 mg PO Q8H PRN #20 tablet 01/18/19 Following Prescrptions Were Given to Patient: Meclizine HCl [Antivert] 25 mg PO 4X/DAY PRN PRN #30 tablet PRN Reason: dizziness/vertigo Ondansetron HCl [Zofran] 4 mg PO Q8H PRN #20 tablet PRN Reason: Nausea Primary Care Physician: David Resendez MD [Primary Care Provider] - Please follow up with your Primary Care Physician in: 1 Week Please Follow Up With: Enrique Araiza MD - ENT When: Call for appt next week Disposition: Home Minutes spent on discharge:: 35 Patient Condition:: Stable Medical Necessity - Tobacco Use Smoking Status: Never smoker Meaningful Use Info Meaningful Use Diagnoses (Choose all that apply): None applicable <Shea English Nabil - Last Filed: 01/18/19 13:38> Discharge Date and Diagnosis - Secondary Discharge Diagnosis Chronic Problems Diabetes type 2, uncontrolled (Chronic) Morbid obesity (Chronic) Hospital Course and Treatment Imaging Results: 01/18/19 05:55 MRI Brain [Brain without Contrast] [MRI] AM (NON MEDS) Procedures: EKG Summary of Care Provided: Hospitalist note: Discharge summary above reviewed and I concur with the above discharge and treatment plan. Patient was admitted for dizziness and vertigo for 3 days. He did have nystagmus on physical examination upon looking to the left side. He has no other neurological deficit. CT scan brain without contrast on admission revealed no acute findings. MRI brain showed no evidence of acute infarction, hemorrhage or mass. Routine blood work was remarkable for mild leukocytosis and mild hypokalemia which was replaced and corrected. LFT was normal. EKG revealed normal sinus rhythm, normal NV interval, normal QRS, no acute ischemic changes or cardiac arrhythmias. Troponin was negative. Chest x-ray showed no acute findings. Acute stroke ruled out. Patient symptoms attributed to BPPV. Patient discharged home in a stable medical condition, discharged on Antivert as needed for vertigo, continued on his previous home medications without any changes, recommended follow-up with PCP in 1 week and follow-up with ENT next week. - Physical Exam General: Alert, Oriented x3, Cooperative, No apparent distress. HEENT: Atraumatic, PERRLA, EOMI. Neck: Supple, No JVD, Negative Carotid Bruits, Trachea Midline, Thyroid Normal. Lungs: Clear to auscultation, Normal air movement, No rhonchi, No wheeze, No rales. Cardiovascular: Regular rate, Regular Rhythm, Normal S1, Normal S2, PMI Normal. Abdomen: Bowel Sounds Present, Soft, Non Tender, Non-Distended, No Hepato-splenomegaly. Extremities: No clubbing, No cyanosis, No edema Skin: No rashes, No breakdown Neurological: Cranial nerves are intact, normal power and tone of all limbs, nystagmus on looking to the left side on both eyes. Vital Signs are stable. This note was generated with [employer] dictation software. It may contain incorrect words, spelling, and punctuation that were not noted in checking the note before signing. - Physical Exam Vital Signs Temp Pulse Resp BP Pulse Ox 98.0 F 71 18 134/85 H 95 01/18/19 10:01/18/19 10:05 01/18/19 10:01/18/19 10:01/18/19 11:09 Oxygen Delivery Method Room Air Weight: 311 lb 8.211 oz Body Mass Index (BMI) 41.3 Finger Stick Blood Glucose 125 Intake and Output for Last 24 Hours 01/16/19 01/17/19 01/18/19 23:59 23:59 23:59 Intake Total 392 / 392 1086 / 1086 Balance 392 / 392 1086 / 1086 Laboratory Tests Past 24 Hrs 01/17/19 01/17/19 01/17/19 15:55 15:55 15:55 WBC 13.1 H RBC 4.51 L Hgb 14.0 Hct 39.9 L MCV 88.5 MCH 31.0 MCHC 35.1 RDW 12.8 RDW Differential 41.1 Plt Count 209 MPV 9.8 Immature Gran % (Auto) 0.300 Neut % (Auto) 74.9 H Lymph % (Auto) 17.4 L [place] % (Auto) 5.9 Eos % (Auto) 1.4 Baso % (Auto) 0.1 Absolute Neuts (auto) 9.8 H Absolute Lymphs (auto) 2.27 Total Counted Not Reportable PT 13.4 INR 1.0 APTT 26.9 Sodium 142 Potassium 3.3 L Chloride 105 Carbon Dioxide 27.0 Anion Gap 10 BUN 23 H Creatinine 1.25 Estim Creat Clear Calc 83.45 Est GFR (MDRD) Af Amer 80 Est GFR (MDRD) Non-Af 66 BUN/Creatinine Ratio 18.4 Glucose 121 H Calcium 9.3 Magnesium Total Bilirubin 0.60 AST 23 ALT 33 Alkaline Phosphatase 93 Troponin I Total Protein 8.0 Albumin 3.7 Globulin 4.3 H Albumin/Globulin Ratio 0.9 Triglycerides Cholesterol LDL Cholesterol VLDL Cholesterol HDL Cholesterol 01/17/19 01/18/19 01/18/19 15:55 05:20 05:20 WBC 11.6 H RBC 4.38 L Hgb 13.3 Hct 39.1 L MCV 89.3 MCH 30.4 MCHC 34.0 RDW 12.9 RDW Differential 41.4 Plt Count 212 MPV 10.3 Immature Gran % (Auto) 0.300 Neut % (Auto) 63.1 Lymph % (Auto) 27.6 [place] % (Auto) 7.8 Eos % (Auto) 1.1 Baso % (Auto) 0.1 Absolute Neuts (auto) 7.3 Absolute Lymphs (auto) 3.20 Total Counted Not Reportable PT INR APTT Sodium Cancelled 143 Potassium Cancelled 3.7 Chloride Cancelled 107 Carbon Dioxide Cancelled 31.0 Anion Gap Cancelled 5 BUN Cancelled 19 H Creatinine Cancelled 1.10 Estim Creat Clear Calc 92.10 Est GFR (MDRD) Af Amer Cancelled 93 Est GFR (MDRD) Non-Af Cancelled 77 BUN/Creatinine Ratio Cancelled 17.3 Glucose Cancelled 77 Calcium Cancelled 8.6 Magnesium 2.0 Total Bilirubin AST ALT Alkaline Phosphatase Troponin I < 0.015 Total Protein Albumin Globulin Albumin/Globulin Ratio Triglycerides 116 Cholesterol 120 LDL Cholesterol 64 VLDL Cholesterol 23 HDL Cholesterol 33 L POC Glucose 01/18/19 01/18/19 01/17/19 11:15 06:35 23:04 POC Glucose 131 H 80 133 H 01/17/19 15:36 POC Glucose 125 H Disposition: Home Minutes spent on discharge:: 26 Patient Condition:: Stable Meaningful Use Info Meaningful Use Diagnoses (Choose all that apply): None applicable Code Visit OBSV E&M: 33307 Observation care discharge
--- NOTE | 2019-01-18 11:15 | DS.PCM_ITS ---
<Antonella Middleton - Last Filed: 01/18/19 11:16> Discharge Date and Diagnosis Date of Admission: 01/17/19 Date of Discharge: 01/18/19 - Primary Discharge Diagnosis Active and Suspected Problems 1. Vertigo, suspected BPPV 2. Type 2 diabetes mellitus 3. Hypertension 4. SHOLA 5. Obesity - Secondary Discharge Diagnosis Chronic Problems Diabetes type 2, uncontrolled (Chronic) Morbid obesity (Chronic) Hospital Course and Treatment Imaging Results: Diagnostic Data Brain CT 01/17/19 16:52 IMPRESSION: Normal unenhanced CT scan of the brain. Electronically Signed: Andres Cuellar DO at 18:40 EDT Tel , Service support , Chest X-Ray 01/17/19 17:08 IMPRESSION: Stable, nonacute portable x-ray examination of the chest. Electronically Signed: Hola Becker MD at 17:24 EDT , Service support , Brain MRI 01/18/19 05:55 IMPRESSION: No evidence of acute intracranial bleed, mass or ischemia. Sphenoid sinus disease as above. Electronically Signed: Jm Cardozo DO at 10:05 EDT , Service support , Operations: None Procedures: None Summary of Care Provided: The patient is a 48 year old M admitted 01/17/2019 due to dizziness and vertigo for 3 days. 1. Vertigo, suspected BPPV-CVA ruled out. Brain CT unremarkable. MRI of brain with no evidence of acute intracranial bleed, mass or ischemia. Chest x-ray unremarkable. Patient had recent echo September 2017 which showed an EF of 65%. Neuro exam unremarkable with exception of nystagmus with left gaze. Meclizine as needed for vertigo, dizziness. Follow-up with primary care provider in 1 week. Follow-up with ENT next week. 2. Type 2 diabetes mellitus-continue home metformin, Lantus regimen. 3. Hypertension-stable, continue home HCTZ, lisinopril, metoprolol regimen. 4. SHOLA-continue home CPAP regimen. 5. Obesity-encourage diet lifestyle modifications. 6. Mild leukocytosis-suspect reactive. Afebrile. No evidence of infection. General: Alert, Oriented x3, Cooperative HEENT: Atraumatic, PERRLA, EOMI, Normocephalic Neck: Supple, No JVD, Negative Carotid Bruits Lungs: Clear to auscultation, diminished Cardiovascular: Regular rate, No murmurs Abdomen: Bowel Sounds Present, Soft, Non Tender, Non-Distended Extremities: No edema, Capillary Refill Less than 3 Seconds Skin: No rashes, No breakdown Musculoskeletal: No Tenderness to Palpation of Joints or Extremities Neurological: Cranial nerves II-XII grossly intact, Neuro grossly intact, mild nystagmus with left gaze Psych/Mental Status: Normal Affect, Appropriate Patient seen and examined prior to discharge. Physical assessment as noted above. Patient is stable for discharge with follow up recommendations as noted above. This patient was seen by WILBER Alcaraz under the supervision of Dr. English. - Physical Exam Vital Signs Temp Pulse Resp BP Pulse Ox 98.0 F 71 18 134/85 H 95 01/18/19 10:00 01/18/19 10:05 01/18/19 10:00 01/18/19 10:00 01/18/19 10:00 Oxygen Delivery Method Room Air Weight: 311 lb 8.211 oz Body Mass Index (BMI) 41.3 Finger Stick Blood Glucose 125 Intake and Output for Last 24 Hours 01/16/19 01/17/19 01/18/19 23:59 23:59 23:59 Intake Total 392 / 392 606 / 606 Balance 392 / 392 606 / 606 Laboratory Tests Past 24 Hrs 01/17/19 01/17/19 01/17/19 15:55 15:55 15:55 WBC 13.1 H RBC 4.51 L Hgb 14.0 Hct 39.9 L MCV 88.5 MCH 31.0 MCHC 35.1 RDW 12.8 RDW Differential 41.1 Plt Count 209 MPV 9.8 Immature Gran % (Auto) 0.300 Neut % (Auto) 74.9 H Lymph % (Auto) 17.4 L Levy % (Auto) 5.9 Eos % (Auto) 1.4 Baso % (Auto) 0.1 Absolute Neuts (auto) 9.8 H Absolute Lymphs (auto) 2.27 Total Counted Not Reportable PT 13.4 INR 1.0 APTT 26.9 Sodium 142 Potassium 3.3 L Chloride 105 Carbon Dioxide 27.0 Anion Gap 10 BUN 23 H Creatinine 1.25 Estim Creat Clear Calc 83.45 Est GFR (MDRD) Af Amer 80 Est GFR (MDRD) Non-Af 66 BUN/Creatinine Ratio 18.4 Glucose 121 H Calcium 9.3 Magnesium Total Bilirubin 0.60 AST 23 ALT 33 Alkaline Phosphatase 93 Troponin I Total Protein 8.0 Albumin 3.7 Globulin 4.3 H Albumin/Globulin Ratio 0.9 Triglycerides Cholesterol LDL Cholesterol VLDL Cholesterol HDL Cholesterol 01/17/19 01/18/19 01/18/19 15:55 05:20 05:20 WBC 11.6 H RBC 4.38 L Hgb 13.3 Hct 39.1 L MCV 89.3 MCH 30.4 MCHC 34.0 RDW 12.9 RDW Differential 41.4 Plt Count 212 MPV 10.3 Immature Gran % (Auto) 0.300 Neut % (Auto) 63.1 Lymph % (Auto) 27.6 Levy % (Auto) 7.8 Eos % (Auto) 1.1 Baso % (Auto) 0.1 Absolute Neuts (auto) 7.3 Absolute Lymphs (auto) 3.20 Total Counted Not Reportable PT INR APTT Sodium Cancelled 143 Potassium Cancelled 3.7 Chloride Cancelled 107 Carbon Dioxide Cancelled 31.0 Anion Gap Cancelled 5 BUN Cancelled 19 H Creatinine Cancelled 1.10 Estim Creat Clear Calc 92.10 Est GFR (MDRD) Af Amer Cancelled 93 Est GFR (MDRD) Non-Af Cancelled 77 BUN/Creatinine Ratio Cancelled 17.3 Glucose Cancelled 77 Calcium Cancelled 8.6 Magnesium 2.0 Total Bilirubin AST ALT Alkaline Phosphatase Troponin I < 0.015 Total Protein Albumin Globulin Albumin/Globulin Ratio Triglycerides 116 Cholesterol 120 LDL Cholesterol 64 VLDL Cholesterol 23 HDL Cholesterol 33 L POC Glucose 01/18/19 01/17/19 01/17/19 06:35 23:04 15:36 POC Glucose 80 133 H 125 H Discharge Diet: 1800 Calorie Control Diet, Carb Control Diet Discharge Activity: Return to Normal Activity Call your doctor if you observe: Shortness of breath, Dizziness, Fainting spells, Chest pain Home Medications: Medications to take at Discharge Hydrochlorothiazide [Hctz] 25 mg PO DAILY #30 tablet 10/23/18 Insulin Glargine [Lantus SoloStar Pen] 35 units SC QHS #11 pen 10/23/18 Lisinopril [Zestril] 20 mg PO DAILY #30 tablet 10/23/18 Cholecalciferol (Vitamin D3) [Vitamin D3] 5,000 unit PO DAILY 01/17/19 Metformin HCl 1,000 mg PO BIDAC 01/17/19 Metoprolol(XL)Succ [Toprol Xl (Beta [place]ana)] 25 mg PO DAILY 01/17/19 Meclizine HCl [Antivert] 25 mg PO 4X/DAY PRN PRN #30 tablet 01/18/19 Ondansetron HCl [Zofran] 4 mg PO Q8H PRN #20 tablet 01/18/19 Following Prescrptions Were Given to Patient: Meclizine HCl [Antivert] 25 mg PO 4X/DAY PRN PRN #30 tablet PRN Reason: dizziness/vertigo Ondansetron HCl [Zofran] 4 mg PO Q8H PRN #20 tablet PRN Reason: Nausea Primary Care Physician: David Resendez MD [Primary Care Provider] - Please follow up with your Primary Care Physician in: 1 Week Please Follow Up With: Enrique Araiza MD - ENT When: Call for appt next week Disposition: Home Minutes spent on discharge:: 35 Patient Condition:: Stable Medical Necessity - Tobacco Use Smoking Status: Never smoker Meaningful Use Info Meaningful Use Diagnoses (Choose all that apply): None applicable <Shea English Nabil - Last Filed: 01/18/19 13:38> Discharge Date and Diagnosis - Secondary Discharge Diagnosis Chronic Problems Diabetes type 2, uncontrolled (Chronic) Morbid obesity (Chronic) Hospital Course and Treatment Imaging Results: 01/18/19 05:55 MRI Brain [Brain without Contrast] [MRI] AM (NON MEDS) Procedures: EKG Summary of Care Provided: Hospitalist note: Discharge summary above reviewed and I concur with the above discharge and treatment plan. Patient was admitted for dizziness and vertigo for 3 days. He did have nystagmus on physical examination upon looking to the left side. He has no other neurological deficit. CT scan brain without contrast on admission revealed no acute findings. MRI brain showed no evidence of acute infarction, hemorrhage or mass. Routine blood work was remarkable for mild leukocytosis and mild hypokalemia which was replaced and corrected. LFT was normal. EKG revealed normal sinus rhythm, normal FL interval, normal QRS, no acute ischemic changes or cardiac arrhythmias. Troponin was negative. Chest x-ray showed no acute findings. Acute stroke ruled out. Patient symptoms attributed to BPPV. Patient discharged home in a stable medical condition, discharged on Antivert as needed for vertigo, continued on his previous home medications without any changes, recommended follow-up with PCP in 1 week and follow-up with ENT next week. - Physical Exam General: Alert, Oriented x3, Cooperative, No apparent distress. HEENT: Atraumatic, PERRLA, EOMI. Neck: Supple, No JVD, Negative Carotid Bruits, Trachea Midline, Thyroid Normal. Lungs: Clear to auscultation, Normal air movement, No rhonchi, No wheeze, No rales. Cardiovascular: Regular rate, Regular Rhythm, Normal S1, Normal S2, PMI Normal. Abdomen: Bowel Sounds Present, Soft, Non Tender, Non-Distended, No Hepato- splenomegaly. Extremities: No clubbing, No cyanosis, No edema Skin: No rashes, No breakdown Neurological: Cranial nerves are intact, normal power and tone of all limbs, nystagmus on looking to the left side on both eyes. Vital Signs are stable. This note was generated with LookTracker dictation software. It may contain incorrect words, spelling, and punctuation that were not noted in checking the note before signing. - Physical Exam Vital Signs Temp Pulse Resp BP Pulse Ox 98.0 F 71 18 134/85 H 95 01/18/19 10:01/18/19 10:05 01/18/19 10:01/18/19 10:01/18/19 11:09 Oxygen Delivery Method Room Air Weight: 311 lb 8.211 oz Body Mass Index (BMI) 41.3 Finger Stick Blood Glucose 125 Intake and Output for Last 24 Hours 01/16/19 01/17/19 01/18/19 23:59 23:59 23:59 Intake Total 392 / 392 1086 / 1086 Balance 392 / 392 1086 / 1086 Laboratory Tests Past 24 Hrs 01/17/19 01/17/19 01/17/19 15:55 15:55 15:55 WBC 13.1 H RBC 4.51 L Hgb 14.0 Hct 39.9 L MCV 88.5 MCH 31.0 MCHC 35.1 RDW 12.8 RDW Differential 41.1 Plt Count 209 MPV 9.8 Immature Gran % (Auto) 0.300 Neut % (Auto) 74.9 H Lymph % (Auto) 17.4 L Levy % (Auto) 5.9 Eos % (Auto) 1.4 Baso % (Auto) 0.1 Absolute Neuts (auto) 9.8 H Absolute Lymphs (auto) 2.27 Total Counted Not Reportable PT 13.4 INR 1.0 APTT 26.9 Sodium 142 Potassium 3.3 L Chloride 105 Carbon Dioxide 27.0 Anion Gap 10 BUN 23 H Creatinine 1.25 Estim Creat Clear Calc 83.45 Est GFR (MDRD) Af Amer 80 Est GFR (MDRD) Non-Af 66 BUN/Creatinine Ratio 18.4 Glucose 121 H Calcium 9.3 Magnesium Total Bilirubin 0.60 AST 23 ALT 33 Alkaline Phosphatase 93 Troponin I Total Protein 8.0 Albumin 3.7 Globulin 4.3 H Albumin/Globulin Ratio 0.9 Triglycerides Cholesterol LDL Cholesterol VLDL Cholesterol HDL Cholesterol 01/17/19 01/18/19 01/18/19 15:55 05:20 05:20 WBC 11.6 H RBC 4.38 L Hgb 13.3 Hct 39.1 L MCV 89.3 MCH 30.4 MCHC 34.0 RDW 12.9 RDW Differential 41.4 Plt Count 212 MPV 10.3 Immature Gran % (Auto) 0.300 Neut % (Auto) 63.1 Lymph % (Auto) 27.6 Levy % (Auto) 7.8 Eos % (Auto) 1.1 Baso % (Auto) 0.1 Absolute Neuts (auto) 7.3 Absolute Lymphs (auto) 3.20 Total Counted Not Reportable PT INR APTT Sodium Cancelled 143 Potassium Cancelled 3.7 Chloride Cancelled 107 Carbon Dioxide Cancelled 31.0 Anion Gap Cancelled 5 BUN Cancelled 19 H Creatinine Cancelled 1.10 Estim Creat Clear Calc 92.10 Est GFR (MDRD) Af Amer Cancelled 93 Est GFR (MDRD) Non-Af Cancelled 77 BUN/Creatinine Ratio Cancelled 17.3 Glucose Cancelled 77 Calcium Cancelled 8.6 Magnesium 2.0 Total Bilirubin AST ALT Alkaline Phosphatase Troponin I < 0.015 Total Protein Albumin Globulin Albumin/Globulin Ratio Triglycerides 116 Cholesterol 120 LDL Cholesterol 64 VLDL Cholesterol 23 HDL Cholesterol 33 L POC Glucose 01/18/19 01/18/19 01/17/19 11:15 06:35 23:04 POC Glucose 131 H 80 133 H 01/17/19 15:36 POC Glucose 125 H Disposition: Home Minutes spent on discharge:: 26 Patient Condition:: Stable Meaningful Use Info Meaningful Use Diagnoses (Choose all that apply): None applicable Code Visit OBSV E&M: 58443 Observation care discharge
[2019-01-18 12:01] LABS: Bedside Glucose 131 mg/dL (70-110)
== END 2019-01-18 11:08 | disposition home or self-care (01) ==
LOC: ED 17:10 → PCU 21:53
PROVIDERS: Admitting Provider Internal Medicine; Emergency Provider Emergency Medicine; Family Provider Family Medicine; PCP Family Medicine; Referring Provider Internal Medicine; Visit Provider Hospitalist
DX: R42 Dizziness and giddiness (principal); I10 Essential (primary) hypertension; G47.33 Obstructive sleep apnea (adult) (pediatric); E11.65 Type 2 diabetes mellitus with hyperglycemia; E66.01 Morbid (severe) obesity due to excess calories; D72.829 Elevated white blood cell count, unspecified; Z68.41 Body mass index [BMI] 40.0-44.9, adult; Z71.3 Dietary counseling and surveillance; Z79.899 Other long term (current) drug therapy; Z79.4 Long term (current) use of insulin; E87.6 Hypokalemia
CPT/HCPCS: 36415; 70450; 70551; 71045; 80048; 80053; 80061; 82962; 83735; 84484; 85025; 85610; 85730; 92610; 93005; 96361; 96374; 96375; 99218; 99285; J7030; A4216; G0378

== ENCOUNTER 2019-01-27 13:00 | Outpatient (RCR) | payer OTHER, SELFPAY ==
[2019-01-18 01:30] VITALS: BMI 41.3
--- NOTE | 2019-01-23 15:26 | HP.PTEVAL_ITS ---
Patient's Visit Information KEEGAN PAZ is a 48 year old M referred to Physical Therapy by Nilton Fine MD with a diagnosis of vestibular neuritis.. Date of Evaluation: 01/23/19 Physical Therapist: Enrique Rogers, ELIEZERT, OCS, CSCS - Visit Plan Frequency: 1x/Week Duration: 4-6 Weeks Plan: weekly x 4-6 as needed for. Adaptation adn habituation progression. VOR seated quiet 30-60 sec in quiet room 5x/day given today. - Subjective Findings: Viral infection in inner ear for about a week. Went to [place] after school and drove home and when he got out of car and started spinning out of nowhere. Needed help into house and sat at table.(Took long time to get in house) Vomitted a number of times and lied down in house and went to sleep. called off work the next morning and didn't feel too bad. That night sitting in recliner started spinning again. Went to lie down and it lasted 25 minutes. [place] better that evening. Went to doctor and thought it was blood pressure related. Cut back on one of meds. The next morning got up and mowed lawn and moving furniture and started spinning again. Called doctor and went to ER. Dizzyness lasted [address] scan and spent the night. Had MRI and came back normal. Sent to ENT last Saturday and hearing is fine. Concluded virus. ER gave him meclizine. Weaning off by doctors orders. Feeling it today. but No spinning since started meds. Has to be careful with head movements. Turning L seems to be worse. 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 Balance is poor and stumbles but no falls. - Objective wALKS SLOWLY AND HESITANTLY BUT SAFE WITHOTU ad. tRASNFERS SLWO ADN i. hESITANT WITH ANY HEAD MOVEMENT TODAY. Balance is below normal but functional. Head movement is hesitant and R c/s AROM 20 and L 50. Slow. - B hallpiek john. - roll test. Oculomotor: no nystagmus with gaze or head shake. - skew eye deviation. + R head thrust. convergence OK. Pursuit and saccades are normal. VOR 20 seconds symptomatic 1-2 up to 4 and 6 /10 with 30 seconds. Recovers quickly. - Balance Scores Functional Gait Assessment Score: 25 % Disability: 16.6700 CATSIB Score (Max score 120 seconds): 78 - Goals Goal 1:: Walk with head movements comfortable and confident. Goal Time Frame: 4-6 Weeks Goal 2:: 30/30 FGA to minimize risk Goal Time Frame: 4-6 Weeks Goal 3:: Pt feel 99% back to normal and able to drive safely. Goal Time Frame: 4-6 Weeks - Rehabilitation Potential Physical Therapy Diagnosis: vestibular hypofunction Rehabilitation Potential: Good - Anticipated Interventions Patient/Client Instruction: Educate patient on: Condition, Plan of Care For the Purpose of:: To increase tolerance to activity/condition/position Comment: adaptation/habituation/balance For the Purpose of:: To improve muscle performance and motor function, To increase tolerance to activity/condition/position, To improve balance Thank you for the opportunity to evaluate your patient. For Medicare and Medicare HMO plans, please review the plan of care and approve it. It will need to be FAXED BACK to us at [phone] for Medicare purposes. For Medicare only, by signing this I certify the plan of care. Please let me know if there are questions or concerns regarding this plan of care. Physician Signature: Date:
--- NOTE | 2019-04-13 15:28 | HP.PT.NRP ---
HP - Discharge Summary (1) - Patient Information KEEGAN PAZ was seen in my office for initial evaluation on 01/23/19. The following Plan of Care was established for this patient: Initial Frequency: 1x/Week Initial Duration: 4-6 Weeks - Anticipated Interventions Patient/Client Instruction: Educate patient on: Condition, Plan of Care For the Purpose of:: To increase tolerance to activity/condition/position For the Purpose of:: To improve muscle performance and motor function, To increase tolerance to activity/condition/position, To improve balance This patient was last seen in our office 01/27/19. Pertinent comments regarding their Physical therapy will appear below: Pt seen for 2 visits and was progressing nicely. she no showed for her final scheduled visit. at this point, it has been over two months and I will disocntinue due to nonattendance. At this point I will be discontinuing this patient from physical therapy. I would be happy to see this patient again in the future if found appropriate by the physician. Thank you! Enrique Rogers, DPT, OCS, CSCS
== END 2019-01-27 19:00 | disposition home or self-care (01) ==
LOC: PT 13:00
PROVIDERS: Family Provider Family Medicine; PCP Family Medicine; Visit Provider Otolaryngology
DX: H93.3X9 Disorders of unspecified acoustic nerve (principal)
CPT/HCPCS: 97161; 97530

== ENCOUNTER → 2019-01-27 | Outpatient (CLI) | payer OTHER, SELFPAY ==
[2019-01-18 01:30] VITALS: BMI 41.3
[2019-01-27 15:35] LABS: Absolute Lymphocyte Count 3.24 X10^3/ul (0.83-4.51); Absolute Neutrophil Count 5.7 X10^3/uL (2.0-7.7); Basophil# 0.02 X10^3/uL; Basophil% 0.2 % (0-1); Eosinophil# 0.35 X10^3/uL; Eosinophils% 3.5 % (0-5); Hematocrit 42.1 % (40-54); Hemoglobin 14.4 g/dl (13.0-16.5); Lymphocyte # 3.24 X10^3/ul (4.0); Mean Corp Hgb Conc 34.2 g/gl (32-36); Mean Corpuscular Hgb 30.5 pg (27.0-32.0); Mean Corpuscular Volume 89.2 fL (80-94); Mean Platelet Vol. 10.5 fl (6.2-12.0); Monocyte# 0.81 X10^3/uL; Neutrophil # 5.68 X10^3/uL (2.7-7.7); Neutrophil % 56.1 % (47-70); Platelet Count 232 K/mm3 (150-450); RBC Distribution Width CV 12.8 % (11.6-14.6); RBC Distribution Width SD 41.4 fl (35.1-43.9); Red Blood Count 4.72 M/mm3 (4.6-6.2); White Blood Count 10.1 K/mm3 (4.4-11.0)
[2019-01-27 15:41] LABS: POSITIVE COUNT NO; POSITIVE DIFFERENTIAL NO; POSITIVE MORPHOLOGY NO
[2019-01-27 15:51] LABS: AST(SGOT) 23 U/L (15-37); Alanine Aminotransfer ALT/SGPT 32 U/L (16-61); Albumin, Serum 3.7 g/dL (3.2-5.0); Alkaline Phosphatase 90 U/L (45-117); Anion Gap 10 (5-15); BUN 19 mg/dL (7-18); BUN/Creat Ratio 16.7 RATIO (10-20); Calcium,Total 9.1 mg/dL (8.5-10.1); Chloride 103 mmol/L (98-107); Cholesterol 160 mg/dL (200); Creatinine, Serum 1.14 mg/dL (0.70-1.30); EST Glomerular Filtration Rate 73 mL/min (>60); Est Glom Filt Rate - Afr Amer 89 mL/min (>60); Globulin 3.6 g/dL (2.2-4.2); Glucose 92 mg/dL (74-106); High Density Lipoprotein 32 mg/dL; Potassium 3.9 mmol/L (3.5-5.1); Protein, Total 7.3 g/dL (6.4-8.2); Sodium Level 141 mmol/L (136-145); Triglycerides 230 mg/dL; Very Low Density Lipoprotein 46 mg/dL (5-40)
[2019-01-27 16:09] LABS: Hemoglobin A1c 5.4 % (4.2-6.3)
[2019-01-27 20:47] LABS: Vitamin D,25 Hydroxy 25.1 ng/mL (29.95-100.01)
== END | disposition home or self-care (01) ==
LOC: MFPLAB 13:37
PROVIDERS: Family Provider Family Medicine; PCP Family Medicine; Referring Provider Family Medicine; Visit Provider Family Medicine
DX: E11.65 Type 2 diabetes mellitus with hyperglycemia (principal); E55.9 Vitamin D deficiency, unspecified; I10 Essential (primary) hypertension
CPT/HCPCS: 36415; 80053; 80061; 82306; 83036; 85025

== ENCOUNTER → 2019-01-28 | Outpatient (CLI) | payer OTHER, SELFPAY ==
[2019-01-18 01:30] VITALS: BMI 41.3
[2019-01-28 18:06] LABS: Microalbumin,Random Urine 17.8 mg/L (NO RANGE EST.); Microalbumin:Creatinine Ratio 8.2 mg/g CRE (<30 mg/g CRE)
== END | disposition home or self-care (01) ==
LOC: MFPLAB 16:01 → LABSPEC 16:03
PROVIDERS: Family Provider Family Medicine; PCP Family Medicine; Referring Provider Family Medicine; Visit Provider Family Medicine
DX: I10 Essential (primary) hypertension (principal); E55.9 Vitamin D deficiency, unspecified; E11.65 Type 2 diabetes mellitus with hyperglycemia
CPT/HCPCS: 82043; 82570

== ENCOUNTER → 2019-04-29 | Outpatient (CLI) | payer OTHER, SELFPAY ==
[2019-01-18 01:30] VITALS: BMI 41.3
[2019-04-29 10:11] LABS: Absolute Lymphocyte Count 2.75 X10^3/uL (0.83-4.51); Absolute Neutrophil Count 6.2 X10^3/uL (2.0-7.7); Basophil# 0.03 X10^3/uL; Basophil% 0.3 % (0-1); Eosinophil# 0.18 X10^3/uL; Eosinophils% 1.8 % (0-5); Hematocrit 40.4 % (40-54); Hemoglobin 13.6 g/dL (13.0-16.5); Lymphocyte # 2.75 X10^3/ul (4.0); Lymphocyte % 27.7 % (19-41); Mean Corp Hgb Conc 33.7 g/dL (32-36); Mean Corpuscular Hgb 30.2 pg (27.0-32.0); Mean Corpuscular Volume 89.8 fL (80-94); Mean Platelet Vol. 10.4 fl (6.2-12.0); Monocyte# 0.78 X10^3/uL; Monocyte% 7.9 % (0-10); NRBC Flagged by Analyzer 0 % (0-5); Neutrophil # 6.15 X10^3/uL (2.7-7.7); Neutrophil % 61.9 % (47-70); Platelet Count 206 K/mm3 (150-450); RBC Distribution Width CV 12.5 % (11.6-14.6); RBC Distribution Width SD 40.9 fl (35.1-43.9); White Blood Count 9.9 K/mm3 (4.4-11.0)
[2019-04-29 10:42] LABS: Hemoglobin A1c 4.8 % (4.2-6.3)
[2019-04-29 10:46] LABS: ALB/GLOB Ratio 0.9 RATIO (0.9-2.4); AST(SGOT) 21 U/L (15-37); Alanine Aminotransfer ALT/SGPT 27 U/L (16-61); Albumin, Serum 3.7 g/dL (3.2-5.0); Alkaline Phosphatase 74 U/L (45-117); Anion Gap 6 (5-15); BUN 27 mg/dL (7-18); BUN/Creat Ratio 20.5 RATIO (10-20); Calcium,Total 8.8 mg/dL (8.5-10.1); Chloride 104 mmol/L (98-107); Cholesterol 140 mg/dL (200); Creatinine, Serum 1.32 mg/dL (0.70-1.30); EST Glomerular Filtration Rate 62 mL/min (>60); Est Glom Filt Rate - Afr Amer 75 mL/min (>60); Globulin 3.9 g/dL (2.2-4.2); Glucose 80 mg/dL (74-106); High Density Lipoprotein 39 mg/dL; Potassium 3.5 mmol/L (3.5-5.1); Protein, Total 7.6 g/dL (6.4-8.2); Sodium Level 140 mmol/L (136-145); Triglycerides 91 mg/dL; Very Low Density Lipoprotein 18 mg/dL (5-40)
[2019-04-29 10:52] LABS: Vitamin D,25 Hydroxy 41.2 ng/mL (29.95-100.01)
== END | disposition home or self-care (01) ==
LOC: MFPLAB 09:01
PROVIDERS: Family Provider Family Medicine; PCP Family Medicine; Referring Provider Family Medicine; Visit Provider Family Medicine
DX: E11.65 Type 2 diabetes mellitus with hyperglycemia (principal); I10 Essential (primary) hypertension; E55.9 Vitamin D deficiency, unspecified
CPT/HCPCS: 36415; 80053; 80061; 82306; 83036; 85025

== ENCOUNTER → 2019-05-01 | Outpatient (CLI) | payer OTHER, SELFPAY ==
[2019-01-18 01:30] VITALS: BMI 41.3
--- NOTE | 2019-05-01 08:16 | RAD_ITS ---
STUDY: X-RAY - CERVICAL SPINE REASON FOR EXAM: Male, 48 years old. Chronic neck pain. No known injury. TECHNIQUE: 5 view(s) of the cervical spine were obtained including oblique views. COMPARISON: None FINDINGS: There are degenerative changes of the anterior atlantoaxial articulation. Normal odontoid process. There is straightening of the normal cervical lordosis. There is multi-level endplate spondylosis. There is multi-level degenerative disc disease with multilevel disc space narrowing. Normal visualized intervertebral neuroforamina. The soft tissue structures are unremarkable. RAD/Cerv Spine 2 or 3 Views IMPRESSION: Multilevel spondylosis and disc space narrowing. Electronically Signed: Fabiano Knight, at 13:30 EDT , Service support ,
== END | disposition home or self-care (01) ==
LOC: HPRAD 08:02
PROVIDERS: Family Provider Family Medicine; PCP Family Medicine; Referring Provider Family Medicine; Visit Provider Family Medicine
DX: M54.2 Cervicalgia (principal)
CPT/HCPCS: 72040

== ENCOUNTER 2019-06-05 08:30 | Outpatient (RCR) | payer OTHER, SELFPAY ==
[2019-01-18 01:30] VITALS: BMI 41.3
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
--- NOTE | 2019-06-05 11:10 | HP.PTDCSUM ---
HP - PT D/C Summary It has been my pleasure to treat KEEGAN PAZ under orders from David Resendez MD, for the diagnosis of CERVICAL DDD for a total of 9 visit(s). Discharge Date: Please see the following information for a summary of their discharge status. - Subjective Subjective: PATIENT REPORTS HIS NECK TURNING IS IMPROVING. 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 NOT ABLE TO LIE DOWN TO DO THE NEW EX GIVEN LAST VISIT EXCEPT ONCE. ONLY HAS 30 MINUTES TODAY AND WOULD RATHER NOT DO THE TRACTION. PATIENT REPORTS IT IS GOING TO BE HARDER FOR HIM TO COME TO THERAPY NOW THAT HE IS WORKING. - Overall Improvement % Improvement: 20 - Objective Objective/Function: PATIENT DOES NOT LIKE TRACTION BUT THINKS IT MIGHT HAVE HELPED. RETRACTION ROM HAS IMPROVED. HOME EX'S GIVEN TODAY ARE CHALLENGING FOR PATIENT. UPON EXAM TODAY: Cervical Mvmt Loss: Flex: NIL. Pro: NIL. Ext: MOD. Ret: MOD. RSB: MOD. LSB: MOD. R Rot: MOD. L Rot: MOD. PATIENT REPORTS STIFFNESS WITH TESTING BUT NOT PAIN. - Goals Goal 1:: DECREASE C/O NECK AND UE SX'S. Goal Progress: Progressing Goal 2:: IMRPOVE HEAD TURNING FUNCTION Goal Progress: Progressing Goal 3:: INSTRUCT IN PROPHYLAXIS Goal Progress: Progressing - Plan Plan: WILL D/C TO HEP AT THIS TIME BUT WE WOULD BE HAPPY TO RESUME PT IN THE FUTURE IF NEEDED/INDICATED. PATIENT IS APPROPRIATE TO FOLLOW UP WITH PHYSICIAN NEEDED. PATIENT AGREEABLE. - D/C Information If there are questions or concerns regarding this patient's physical therapy, please feel free to call me at [phone]. Thank you for the referral of this patient. Sincerely, Rosa Newsome, PT, Cert MDT
== END 2019-06-05 19:00 | disposition home or self-care (01) ==
LOC: PT 08:30
PROVIDERS: Family Provider Family Medicine; PCP Family Medicine; Referring Provider Family Medicine; Visit Provider Family Medicine
DX: M50.30 Other cervical disc degeneration, unspecified cervical region (principal)
CPT/HCPCS: 97012; 97035; 97110; 97140; 97162; 97530

== ENCOUNTER → 2019-10-26 | Outpatient (CLI) | payer OTHER, SELFPAY ==
[2019-01-18 01:30] VITALS: BMI 41.3
[2019-10-26 12:42] LABS: Absolute Lymphocyte Count 2.31 X10^3/uL (0.83-4.51); Absolute Neutrophil Count 3.9 X10^3/uL (2.0-7.7); Basophil# 0.02 X10^3/uL; Basophil% 0.3 % (0-1); Eosinophil# 0.26 X10^3/uL; Eosinophils% 3.7 % (0-5); Hematocrit 41.8 % (40-54); Hemoglobin 13.9 g/dL (13.0-16.5); Lymphocyte # 2.31 X10^3/ul (4.0); Mean Corp Hgb Conc 33.3 g/dL (32-36); Mean Corpuscular Volume 90.1 fL (80-94); Mean Platelet Vol. 10.4 fl (6.2-12.0); Monocyte# 0.51 X10^3/uL; Monocyte% 7.3 % (0-10); NRBC Flagged by Analyzer 0 % (0-5); Neutrophil # 3.89 X10^3/uL (2.7-7.7); Neutrophil % 55.4 % (47-70); Platelet Count 198 K/mm3 (150-450); RBC Distribution Width CV 12.6 % (11.6-14.6); RBC Distribution Width SD 41.1 fl (35.1-43.9); Red Blood Count 4.64 M/mm3 (4.6-6.2)
[2019-10-26 12:57] LABS: AST(SGOT) 21 U/L (15-37); Alanine Aminotransfer ALT/SGPT 29 U/L (16-61); Albumin, Serum 3.7 g/dL (3.2-5.0); Alkaline Phosphatase 70 U/L (45-117); Anion Gap 5 (5-15); BUN 20 mg/dL (7-18); BUN/Creat Ratio 15.9 RATIO (10-20); Chloride 108 mmol/L (98-107); Cholesterol 147 mg/dL (200); Creatinine, Serum 1.26 mg/dL (0.70-1.30); EST Glomerular Filtration Rate 65 mL/min (>60); Est Glom Filt Rate - Afr Amer 79 mL/min (>60); Globulin 3.8 g/dL (2.2-4.2); Glucose 105 mg/dL (74-106); High Density Lipoprotein 39 mg/dL; Potassium 3.9 mmol/L (3.5-5.1); Protein, Total 7.5 g/dL (6.4-8.2); Sodium Level 140 mmol/L (136-145); Triglycerides 149 mg/dL; Very Low Density Lipoprotein 30 mg/dL (5-40)
[2019-10-26 13:00] LABS: Hemoglobin A1c 5.3 % (4.2-6.3); Vitamin D,25 Hydroxy 32.1 ng/mL
== END | disposition home or self-care (01) ==
LOC: MFPLAB 09:32
PROVIDERS: PCP Family Medicine; Referring Provider Family Medicine; Visit Provider Family Medicine
DX: E55.9 Vitamin D deficiency, unspecified (principal); I10 Essential (primary) hypertension; E11.65 Type 2 diabetes mellitus with hyperglycemia
CPT/HCPCS: 36415; 80053; 80061; 82306; 83036; 85025

== ENCOUNTER → 2020-07-15 16:37 | Outpatient (CLI) | payer OTHER, SELFPAY ==
[2019-01-18 01:30] VITALS: BMI 41.3
== END ==
PROVIDERS: PCP Family Medicine; Visit Provider Family Medicine
DX: Z20.828 Contact with and (suspected) exposure to other viral communicable diseases (principal)
CPT/HCPCS: 87635; U0003

== ENCOUNTER 2020-11-27 20:15 | Emergency (ER) | payer OTHER, SELFPAY ==
[2019-01-18 01:30] VITALS: BMI 41.3
[2020-11-27 20:16] VITALS: BP 203/134; PULSE 109; RESP 18; TEMP 36.1; O2SAT 96; BMI 47.5
[2020-11-27 20:30] VITALS: BP 169/98; PULSE 99
--- NOTE | 2020-11-27 20:47 | EKG12_ITS ---
Test Reason : HYPERTENSION Blood Pressure : / mmHG Vent. Rate : 091 BPM Atrial Rate : 091 BPM P-R Int : 148 ms QRS Dur : 092 ms QT Int : 358 ms P-R-T Axes : 047 004 013 degrees QTc Int : 440 ms Normal sinus rhythm Normal ECG Confirmed by ZION ROMERO, RIGO ([id number]), primer expeditor and drier JACQUELYN KESSLER ([id number]) on 11/30/2020 7:53:53 AM Referred By: DRE Confirmed By:RIGO DONOVAN MD
--- NOTE | 2020-11-27 20:47 | RAD_ITS ---
HISTORY: Fatigue EXAM: XR Chest 1 View: COMPARISON: None FINDINGS: # of images incl. paperwork: 1 Lungs are clear. Heart is not enlarged. No acute osseous pathology perceived. Pulmonary vascularity is distinct. No effusions. RAD/Chest 1 View (Portable) IMPRESSION: Normal. at 2219 Reported and signed by: Chip Del Valle MD Electronically Signed: Chip Del Valle MD at 22:18 EDT Tel , Service support ,
[2020-11-27 21:08] LABS: Absolute Lymphocyte Count 2.73 X10^3/uL (0.83-4.51); Absolute Neutrophil Count 6.3 X10^3/uL (2.0-7.7); Basophil# 0.03 X10^3/uL; Basophil% 0.3 % (0-1); Eosinophil# 0.18 X10^3/uL; Eosinophils% 1.8 % (0-5); Hematocrit 41.2 % (40-54); Hemoglobin 13.6 g/dL (13.0-16.5); Lymphocyte # 2.73 X10^3/ul (4.0); Lymphocyte % 27.3 % (19-41); Mean Corpuscular Volume 90.9 fL (80-94); Mean Platelet Vol. 9.6 fl (6.2-12.0); Monocyte# 0.69 X10^3/uL; Monocyte% 6.9 % (0-10); NRBC Flagged by Analyzer 0 % (0-5); Neutrophil # 6.33 X10^3/uL (2.7-7.7); Neutrophil % 63.4 % (47-70); Platelet Count 190 K/mm3 (150-450); RBC Distribution Width CV 13.2 % (11.6-14.6); RBC Distribution Width SD 43.2 fl (35.1-43.9); Red Blood Count 4.53 M/mm3 (4.6-6.2)
[2020-11-27 21:20] LABS: Partial Thromboplast Time 26.7 Seconds (24.1-36.2); Prothrombin Time (Protime)PT. 12.5 SECONDS (11.7-14.9)
[2020-11-27 21:24] LABS: AST(SGOT) 22 U/L (15-37); Alanine Aminotransfer ALT/SGPT 30 U/L (16-61); Albumin, Serum 3.6 g/dL (3.2-5.0); Alkaline Phosphatase 106 U/L (45-117); Anion Gap 6 (5-15); BUN 25 mg/dL (7-18); BUN/Creat Ratio 19.2 RATIO (10-20); Calcium,Total 8.8 mg/dL (8.5-10.1); Chloride 105 mmol/L (98-107); EST Glomerular Filtration Rate 63 mL/min (>60); Est Glom Filt Rate - Afr Amer 76 mL/min (>60); Estimated Creatinine Clearance 78.53 ml/min; Globulin 3.5 g/dL (2.2-4.2); Glucose 134 mg/dL (74-106); Potassium 3.6 mmol/L (3.5-5.1); Protein, Total 7.1 g/dL (6.4-8.2); Sodium Level 138 mmol/L (136-145)
--- NOTE | 2020-11-27 22:29 | ED.DCSUM_ITS ---
- ER Visit Summary Date of Service: 11/27/20 Chief Complaint: High blood pressure History of Present Illness: The patient is a 50 M who presents with elevated blood pressure the was noticed today. Patient states he was mowing the lawn today with a push mower. Patient states he started feeling fatigue. Patient states that he checked his blood pressure at home and it was high. Patient states that he took his evening dose of lisinopril prior to arrival. Patient states that his blood pressure did not improve at home with this. Patient states he has been having some general fatigue. Patient states this is worse with activity. Patient also admits to a headache. Physical Examination: Vital signs are stable except for an initial blood pressure of 203/134 and a mild tachycardia of 109. Patient is afebrile. Patient is in no acute distress. Oral mucosa is pink and moist. Neck is supple. Trachea is midline. There is no JVD noted. Heart was regular rate and rhythm. Lungs are clear and equal bilaterally. Abdomen is soft. Bowel sounds are normal. There is no tenderness. There is no rebound or guarding noted. Skin is warm dry. Cranial nerves II through XII are intact. There are no focal motor or sensory deficits noted. Extremities are intact. There is no calf tenderness or edema. Test Results: EKG was obtained. On my interpretation, it showed a normal sinus rhythm with a rate of 91. AK interval, QRS interval, and QTc intervals were all normal. [place] was normal. There are no acute ST or T wave changes. CBC and comprehensive metabolic profile were obtained and were essentially within normal limits. PT with INR and PTT were normal. Troponin was normal. Portable 1 view chest x-ray was obtained. On my interpretation, lung lanier are clear. There is normal cardiac silhouette. Bony thorax is normal. There is no acute process noted. Radiologist also interpreted the x-ray and agrees. Emergency Department Course and Treatment: Prior to the patient receiving any blood pressure medications, his blood pressure improved to 169/98. Currently, the patient's blood pressure is 154/95. Patient feels better on reevaluation. Patient states he can get into see his primary care physician tomorrow. Patient was instructed to follow-up with his primary care physician and keep all log of his blood pressures. Patient understood and was agreeable with the plan. All questions were answered. Disposition: Discharge home Impression: 1. Hypertension This note was generated with [employer] dictation software. It may contain incorrect words, spelling, and punctuation that were not noted in review of the chart prior to signing ED Disposition - Plan for ED Patient: Disposition: Home or Assisted Living Diagnosis: Hypertension Instructions: ED Hypertension, Established Referrals: David Resendez MD [Primary Care Provider] - 3-5 Days
[2020-11-27 22:52] VITALS: BP 156/83
== END 2020-11-27 22:52 | disposition home or self-care (01) ==
PROVIDERS: Emergency Provider Emergency Medicine; PCP Family Medicine
DX: I10 Essential (primary) hypertension (principal); E66.9 Obesity, unspecified; E11.9 Type 2 diabetes mellitus without complications; Z79.84 Long term (current) use of oral hypoglycemic drugs; Z79.899 Other long term (current) drug therapy
CPT/HCPCS: 71045; 80053; 84484; 85025; 85610; 85730; 93005; 99284; A4216

== ENCOUNTER → 2020-12-13 08:31 | Outpatient (CLI) | payer OTHER, SELFPAY ==
[2020-11-27 20:16] VITALS: BMI 47.5
[2020-12-13 10:19] LABS: Absolute Lymphocyte Count 2.67 X10^3/uL (0.83-4.51); Absolute Neutrophil Count 5.3 X10^3/uL (2.0-7.7); Basophil# 0.05 X10^3/uL; Basophil% 0.5 % (0-1); Eosinophil# 0.47 X10^3/uL; Eosinophils% 5.1 % (0-5); Hematocrit 46.8 % (40-54); Hemoglobin 15.4 g/dL (13.0-16.5); Lymphocyte # 2.67 X10^3/ul (0.83-4.51); Lymphocyte % 28.7 % (19-41); Mean Corp Hgb Conc 32.9 g/dL (32-36); Mean Corpuscular Hgb 29.9 pg (27.0-32.0); Mean Corpuscular Volume 90.9 fL (80-94); Mean Platelet Vol. 10.3 fl (6.2-12.0); Monocyte# 0.79 X10^3/uL; Monocyte% 8.5 % (0-10); NRBC Flagged by Analyzer 0 % (0-5); Neutrophil # 5.28 X10^3/uL (2.7-7.7); Neutrophil % 56.9 % (47-70); Platelet Count 239 K/mm3 (150-450); RBC Distribution Width CV 12.6 % (11.6-14.6); RBC Distribution Width SD 42.2 fl (35.1-43.9); Red Blood Count 5.15 M/mm3 (4.6-6.2); White Blood Count 9.3 K/mm3 (4.4-11.0)
[2020-12-13 10:38] LABS: Vitamin D,25 Hydroxy 26.1 ng/mL
[2020-12-13 11:29] LABS: AST(SGOT) 24 U/L (15-37); Alanine Aminotransfer ALT/SGPT 32 U/L (16-61); Alkaline Phosphatase 106 U/L (45-117); Anion Gap 7 (5-15); BUN 26 mg/dL (7-18); BUN/Creat Ratio 20.8 RATIO (10-20); Chloride 100 mmol/L (98-107); Cholesterol 160 mg/dL (200); Creatinine, Serum 1.25 mg/dL (0.70-1.30); EST Glomerular Filtration Rate 65 mL/min (>60); Est Glom Filt Rate - Afr Amer 79 mL/min (>60); Glucose 126 mg/dL (74-106); Hemoglobin A1c 5.9 % (3.8-5.6); High Density Lipoprotein 37 mg/dL; Potassium 3.8 mmol/L (3.5-5.1); Sodium Level 136 mmol/L (136-145); Thyroid Stim Hormone (TSH) 1.97 uIU/mL (0.358-3.74); Triglycerides 148 mg/dL; Very Low Density Lipoprotein 30 mg/dL (5-40)
[2020-12-13 11:48] LABS: Microalbumin,Random Urine 17.4 mg/L (NO RANGE EST.); Microalbumin:Creatinine Ratio 10.6 mg/g CRE (<30 mg/g CRE)
== END ==
PROVIDERS: PCP Family Medicine; Visit Provider Family Medicine
DX: E55.9 Vitamin D deficiency, unspecified (principal); R80.9 Proteinuria, unspecified; E11.65 Type 2 diabetes mellitus with hyperglycemia; E11.59 Type 2 diabetes mellitus with other circulatory complications
CPT/HCPCS: 36415; 80053; 80061; 82043; 82306; 82570; 83036; 84443; 85025

== ENCOUNTER → 2020-12-20 08:01 | Outpatient (CLI) | payer OTHER, SELFPAY ==
[2020-11-27 20:16] VITALS: BMI 47.5
--- NOTE | 2020-12-20 08:04 | RDU_ITS ---
Reason For Study: HTN Right Renal Artery Left Renal Artery Right renal artery ostium Left renal artery ostium 127.8/35.6 143.1/42.0 RSV/EDV. PSV/EDV. Right renal artery proximal Left renal artery proximal PSV/EDV 123.2/44.3 PSV/EDV. 149.7/40.0 . Right renal artery mid 149.5/55.2 Left renal artery mid 156.3/40.0 PSV/EDV. PSV/EDV . Right renal artery distal 79.4/28.9 Left renal artery distal 119.0/40.0 PSV/EDV. PSV/EDV. Right RAR 1.5. Left RAR 1.6. Right Renal Parenchyma Left Renal Parenchyma Upper Pole Medula 34.2/14.5 Left upper pole medulla 55.9/22.3 PSV/EDV. PSV/EDV . Right upper pole medulla EDR .42 . Left upper pole medulla EDR .4 . Right upper pole medulla R.I. .58 . Left upper pole medulla R.I. .6 . Upper [place] Cortx 24.3/11.2 PSV/EDV. UP Cortex 22.3/9.3 PSV/EDV. Right upper pole cortex EDR .46 . Left upper pole cortex EDR .42 . Right upper pole cortex R.I. .54 . Left upper pole cortex R.I. .58 . Right lower Pole medulla 47.4/16.7 Left lower Pole medulla 27.5/11.9 PSV/EDV . PSV/EDV . Right lower pole medulla EDR .35 . Left lower pole medulla EDR .43 . Right lower pole medulla R.I. .65 . Left lower pole medulla R.I. .57 . Lower Pole Cortex 25.4/11.2 Lower Pole Cortx 21.1/9.0 PSV/EDV. PSV/EDV. Left lower pole cortex EDR .43 . Right lower pole cortex EDR .44 . Left lower pole cortex R.I. .57 . Right lower pole cortex R.I. .56 . Left Renal Hilar Right Renal Hilar LT Hilar avg 45.2/17.8 PSV/EDV . Right Hilar avg 52.9/18.9 PSV/EDV. Left hilar acceleration time 30 Right hilar acceleration time 40 m/sec. m/sec. Left Renal Dimensions Right Renal Dimensions Left kidney size 13.4 cm . Right kidney size 13.5 cm . Left cortical dimension 1.55 cm . Right cortical dimension 1.56 cm . Aorta Proximal abdominal aorta 1.8 x 1.94 cm . Proximal abdominal aorta peak systolic velocity is 94.8 cm/sec . Distal abdominal aorta 1.71 x 1.61 cm . Distal abdominal aorta peak systolic velocity is 92.6 cm/sec . Normal renal veins bilat. VL/Renal Artery Duplex Ultrasound Interpretation Summary Proximal aortic diameter 1.8 x 1.94 cm with normal aortic flow rate Less than 50% stenosis bilateral renal arteries Right renal length maintained at 13.5 cm Left renal length maintained at 13.4 cm Ordering Physician: David Resendez Performed By: Tano Fontana RVT and Student
--- NOTE | 2020-12-20 08:38 | US_ITS ---
STUDY: RENAL ULTRASOUND - COMPLETE REASON FOR EXAM: Male, 50 years old. HTN -- duplex study in [facility] today TECHNIQUE: Ultrasound evaluation of the kidneys was performed with real-time and static norton-scale imaging. COMPARISON: None. FINDINGS: RIGHT KIDNEY: Normal location of the right kidney, which is normal in size. The right kidney measures 14.5 cm x 6.2 cm x 7 cm. There is a normal cortex of the right kidney. The renal cortex measures 2.0 cm. There is no right renal mass or cyst. There is an 8 mm x 7 mm x 4 mm nonobstructive calculus. There is no right hydronephrosis. DISTAL RIGHT URETER: There is non-visualization of the distal right ureter. There is no demonstrated right ureterovesical junction calculus. There is a visualized right ureteral jet. LEFT KIDNEY: Normal location of the left kidney, which is normal in size. The left kidney measures 13.3 cm x 5.4 cm x 6.4 cm. There is a normal cortex of the left kidney. The renal cortex measures 1.4 cm. There is a 3 mm x 4 mm x 3 mm cyst. There are no left renal calculi. There is no left hydronephrosis. DISTAL LEFT URETER: There is non-visualization of the distal left ureter. There is no demonstrated left ureterovesical junction calculus. There is a visualized left ureteral jet. BLADDER: The bladder is not adequately distended for evaluation. US/Kidney and Bladder IMPRESSION: 8 mm x 7 mm x 4 mm nonobstructive right renal calculus. 3 mm x 4 mm x 3 mm left renal cyst. Electronically Signed: Fabiano Knight MD at 13:00 EDT , Service support ,
== END ==
LOC: US 08:01
PROVIDERS: PCP Family Medicine; Referring Provider Family Medicine; Visit Provider Family Medicine
DX: I10 Essential (primary) hypertension (principal)
CPT/HCPCS: 76770; 93975

== ENCOUNTER → 2021-07-13 15:22 | Outpatient (CLI) | payer OTHER, SELFPAY ==
[2021-07-13 18:11] LABS: ALB/GLOB Ratio 0.9 RATIO (0.9-2.4); AST(SGOT) 21 U/L (15-37); Alanine Aminotransfer ALT/SGPT 35 U/L (16-61); Albumin, Serum 3.7 g/dL (3.2-5.0); Alkaline Phosphatase 82 U/L (45-117); Anion Gap 9 (5-15); BUN 20 mg/dL (7-18); BUN/Creat Ratio 16.4 RATIO (10-20); Calcium,Total 9.4 mg/dL (8.5-10.1); Chloride 102 mmol/L (98-107); Cholesterol 158 mg/dL (200); Creatinine, Serum 1.22 mg/dL (0.70-1.30); EST Glomerular Filtration Rate 67 mL/min (>60); Est Glom Filt Rate - Afr Amer 81 mL/min (>60); Globulin 4.2 g/dL (2.2-4.2); Glucose 142 mg/dL (74-106); High Density Lipoprotein 30 mg/dL; Potassium 3.8 mmol/L (3.5-5.1); Protein, Total 7.9 g/dL (6.4-8.2); Sodium Level 137 mmol/L (136-145); Triglycerides 288 mg/dL; Very Low Density Lipoprotein 58 mg/dL (5-40)
[2021-07-13 18:16] LABS: Vitamin D,25 Hydroxy 30.1 ng/mL
[2021-07-13 19:05] LABS: Microalbumin,Random Urine 15.5 mg/L (NO RANGE EST.); Microalbumin:Creatinine Ratio 9.2 mg/g CRE (<30 mg/g CRE)
== END ==
PROVIDERS: PCP Family Medicine; Referring Provider Family Medicine; Visit Provider Family Medicine
DX: E11.9 Type 2 diabetes mellitus without complications (principal); E55.9 Vitamin D deficiency, unspecified; R80.9 Proteinuria, unspecified
CPT/HCPCS: 36415; 80053; 80061; 82043; 82306; 82570; 83036

== ENCOUNTER → 2022-01-10 | Outpatient (CLI) | payer OTHER, SELFPAY ==
[2022-01-10 17:42] LABS: Absolute Lymphocyte Count 2.18 X10^3/uL (0.83-4.51); Absolute Neutrophil Count 5.4 X10^3/uL (2.0-7.7); Basophil# 0.04 X10^3/uL; Basophil% 0.5 % (0-1); Eosinophils% 3.5 % (0-5); Hematocrit 41.8 % (40-54); Hemoglobin 13.8 g/dL (13.0-16.5); Lymphocyte # 2.18 X10^3/ul (0.83-4.51); Lymphocyte % 25.3 % (19-41); Mean Corpuscular Hgb 30.1 pg (27.0-32.0); Mean Corpuscular Volume 91.1 fL (80-94); Mean Platelet Vol. 10.4 fl (6.2-12.0); Monocyte# 0.65 X10^3/uL; Monocyte% 7.6 % (0-10); NRBC Flagged by Analyzer 0 % (0-5); Neutrophil % 62.8 % (47-70); Platelet Count 237 K/mm3 (150-450); RBC Distribution Width SD 43.3 fl (35.1-43.9); Red Blood Count 4.59 M/mm3 (4.6-6.2); White Blood Count 8.6 K/mm3 (4.4-11.0)
[2022-01-10 18:09] LABS: Vitamin D,25 Hydroxy 26.3 ng/mL
[2022-01-10 18:11] LABS: ALB/GLOB Ratio 0.9 RATIO (0.9-2.4); AST(SGOT) 28 U/L (15-37); Alanine Aminotransfer ALT/SGPT 44 U/L (16-61); Albumin, Serum 3.8 g/dL (3.2-5.0); Alkaline Phosphatase 100 U/L (45-117); Anion Gap 9 (5-15); BUN 20 mg/dL (7-18); Calcium,Total 9.4 mg/dL (8.5-10.1); Chloride 105 mmol/L (98-107); Cholesterol 147 mg/dL (200); Creatinine, Serum 1.66 mg/dL (0.70-1.30); EST Glomerular Filtration Rate 47 mL/min (>60); Est Glom Filt Rate - Afr Amer 57 mL/min (>60); Globulin 4.1 g/dL (2.2-4.2); Glucose 146 mg/dL (74-106); High Density Lipoprotein 31 mg/dL; Potassium 3.8 mmol/L (3.5-5.1); Protein, Total 7.9 g/dL (6.4-8.2); Sodium Level 140 mmol/L (136-145); Triglycerides 286 mg/dL; Very Low Density Lipoprotein 57 mg/dL (5-40)
[2022-01-10 18:17] LABS: Hemoglobin A1c 6.5 % (3.8-5.6)
== END | disposition home or self-care (01) ==
LOC: MFPLAB 15:34
PROVIDERS: PCP Family Medicine; Referring Provider Family Medicine; Visit Provider Family Medicine
DX: E11.9 Type 2 diabetes mellitus without complications (principal); E55.9 Vitamin D deficiency, unspecified
CPT/HCPCS: 36415; 80053; 80061; 82306; 83036; 85025

== ENCOUNTER 2022-06-05 02:08 | Emergency (ER) | payer OTHER, SELFPAY ==
[2022-06-05 02:09] VITALS: BP 151/91; PULSE 93; RESP 18; TEMP 36.6; O2SAT 98; BMI 47.5
--- NOTE | 2022-06-05 02:27 | RAD_ITS ---
STUDY: X-RAY - RIGHT KNEE REASON FOR EXAM: Male, 51 years old. pain/swelling TECHNIQUE: 4. view(s) of the knee. COMPARISON: None. FINDINGS: Normal visualized distal femur. Normal visualized proximal tibia and fibula. Normal proximal tibiofibular articulation. There is mild degenerative arthrosis of the medial femorotibial compartment. Normal lateral femorotibial compartment. There is moderate degenerative arthrosis of the patellofemoral articulation. The soft tissue structures are unremarkable. RAD/Knee 4 or More Views IMPRESSION: Degenerative arthrosis. Electronically Signed: Tequila Fernandez MD at 3:01 EDT ,
--- NOTE | 2022-06-05 02:29 | EDS_ITS ---
HPI History of Present Illness Chief Complaint: Lower Extremity Injury Informant: patient Onset/Context/Timing Onset: Days (3) Context: Gradual Onset Timing: Continuous Quality of Pain: Aching and Throbbing Location: R knee Current Severity: Moderate Maximum Severity: Severe Worsened by: moving, walking/WBing Relieved by: rest and remaining still Associated Symptoms Associated Symptoms: Negative for Parasthesia, Weakness or Loss of Funtion Narrative Narrative: Gradual onset pain and swelling anterior right knee over the past 3 days or so, hard to move it now because of the pain and swelling. Chronic swelling in both of his legs, maybe a little worse on the right, but he states the pain is not in the calf or the lower leg it is in the knee. He points anteriorly, medially and laterally to the patella. Denies any injury. He states he and his just went to [employer] and they returned back to his days prior to the onset of pain, they did a lot more walking than they usually do, including hills. He denies pain elsewhere. No fevers or chills. He had gout in his right foot in the past, he is not on allopurinol. He has noticed no redness in his knee. [facility] Medical History (Updated 06/05/22 @ 03:[address] Imtiaz Christian MD) Diabetes type 2, uncontrolled Gout HTN (hypertension) Morbid obesity Home Medications hydrochlorothiazide 25 mg tablet 25 mg PO DAILY ##30 10/23/18 [Rx Last Taken Unknown] cholecalciferol (vitamin D3) 125 mcg (5,000 unit) capsule 5,000 unit PO DAILY 01/17/19 [History Last Taken Unknown] metformin 850 mg tablet 1,000 mg PO BIDAC 01/17/19 [History Last Taken Unknown] lisinopril 20 mg tablet 20 mg PO BID 11/27/20 [History Last Taken Unknown] amlodipine 10 mg tablet 10 mg PO DAILY 06/05/22 [History Last Taken Unknown] oxycodone-acetaminophen 5 mg-325 mg tablet 1 tab PO Q6H PRN PRN Pain 3 days #12 TABLETS 06/05/22 [Rx Last Taken Unknown] Allergy/AdvReac Type Severity Reaction Status Date / Time No Known Allergies Allergy Verified 11/27/20 20:18 Social History Smoking Status: Never smoker ROS ROS ED Constitutional Constitutional ED: Denies chills or fever(s) Musculoskeletal Musculoskeletal: Reports extremity pain; Denies neck pain Integumentary Denies Abrasions, rash or wounds Neurologic Neurologic: Denies paresthesias or weakness EXAM Physical Exam Const Vital Signs: 06/05/22 02:09 Temperature 97.9 F Temperature Source Temporal Pulse Rate 93 Respiratory Rate 18 Blood Pressure 151/91 H Blood Pressure Mean 111 Pulse Ox 98 Oxygen Delivery Method Room Air Positive well nourished and well developed Constitutional Narrative: Morbidly obese. General Appearance ED: well developed and NAD Neck full ROM and supple Back/Spine normal ROM and normal to inspection Extremity normal to inspection and no calf tenderness Extremity Narrative: Right knee without erythema or skin abnormalities. It is a little warm compared with the lower leg, but not necessarily excessively so compared with the contralateral leg and knee. Possibly a small effusion but limited exam due to obesity. Mildly diffusely tender at the joint line medially, anteriorly where there is some fluid, but not specifically at any particular bony prominence over the patella. Very limited range of motion; able to straighten, but painful to fully straighten and painful to bend to about 30 or 40 degrees, short arc range of motion is not especially painful. General Extremety ED: Yes edema General Extremity: edema bilateral lower extremity Details: moderate (With changes consistent with chronic stasis dermatitis) Neuro oriented x3, no focal motor deficits and no sensory deficits noted Sensorium / Orientation: alert Psych mental status grossly normal and thought process normal Skin no wounds Rashes: no rashes MDM MDM MDM Narrative Medical decision making narrative: 4 view x-ray series of the right knee on my interpretation shows nothing acute. Radiology agreed, adding degenerative arthrosis. Patient was given a [place] while we were waiting for this, he said it did not really help the pain and it was just throbbing without moving it. I had nursing place an [place] wrap and give him crutches, I offered more analgesics, and I offered an arthrocentesis for therapeutic purposes, given that if he did have an effusion pulling the fluid out may significantly help his pain, we discussed the risks and benefits of that, in addition to the fact that if I was able to get fluid I would send it for crystals and other studies as well. After considering all of this, he does not want an arthrocentesis. He will be prescribed something for pain, and referred to orthopedics. Radiography Diagnostic Testing: Clinical Impression(s) from Imaging Studies Knee X-Ray 06/05/22 02:27 IMPRESSION: Degenerative arthrosis. Electronically Signed: Tequila Fernandez MD at 3:01 EDT Reading Location ID and State: [facility] / [place] Tel , Service support , Discharge Plan Triage Chief Complaint: Lower Extremity Injury ED Provider: Imtiaz Christian Dx/Rx/DC Orders Clinical Impression: Acute pain of right knee, Knee effusion, right Instructions: ED Knee Effusion Prescriptions: New oxycodone-acetaminophen [oxycodone-acetaminophen] 5-325 mg tablet 1 tab PO Q6H PRN PRN (Reason: Pain) 3 Days Qty: 12 0RF No Action hydrochlorothiazide 25 MG tablet 25 mg PO DAILY Qty: 30 0RF metformin 850 MG tablet 1,000 mg PO BIDAC cholecalciferol (vitamin D3) 5,000 UNIT capsule 5,000 unit PO DAILY lisinopril 20 MG tablet 20 mg PO BID amlodipine 10 mg tablet 10 mg PO DAILY Primary Care Provider: David Resendez Referrals: David Resendez MD [Primary Care Provider] - Zhou Jenkins DO [Med Staff - Active Staff] - 3-5 Days Disposition Disposition: Home, Self Care
[2022-06-05] MEDS: HYDROcodone Bitartrate/Apap 5/325 Tablet PO (02:36)
--- NOTE | 2022-06-05 03:53 | ED.RN ---
pt refused crutches from this ER because he has some from home. Demonstrates proper usage.
[2022-06-05] MEDS: Ketorolac 30 MG/ML Syringe IM (03:59)
== END 2022-06-05 04:03 | disposition home or self-care (01) ==
PROVIDERS: Emergency Provider Emergency Medicine; PCP Family Medicine; Visit Provider Emergency Medicine
DX: M25.461 Effusion, right knee (principal); E11.9 Type 2 diabetes mellitus without complications; I10 Essential (primary) hypertension; M79.89 Other specified soft tissue disorders; Z79.84 Long term (current) use of oral hypoglycemic drugs; Z79.899 Other long term (current) drug therapy
CPT/HCPCS: 73564; 96372; 99284

== ENCOUNTER 2022-07-04 11:00 | Outpatient (RCR) | payer OTHER, SELFPAY ==
--- NOTE | 2022-06-22 08:00 | HP.PTEVAL ---
Patient's Visit Information KEEGAN PAZ is a 51 year old M referred to Physical Therapy by Dr. Cruz Gomes DO with a diagnosis of R knee Primary OA, R effusion. Date of Evaluation: 06/22/22 Physical Therapist: JABARI Bonds - Visit Plan Frequency: 3x /Week Duration: 2 Months Plan: 3X/ week for 8 weeks for R knee AROM, stretching of the gastroc, R knee and hip strength, gait training, stairs (when able) with HEP and modalities as needed for swelling and pain - Subjective Pt has a partial meniscus tear and the MRI revealed a tear in PCL and MCL (older injuries). His mobility in his knee has not been great for years. They did a cortizone shot last Saturday (pt point to lateral). The Dr wants to try the cortizone shot and PT and he did not rule out surgical repair but that is the last resort. He is not sure how he hurt himself this time. They were on vacation and did more walking than usual. He was using 2 crutches (06/03) and now he is down to one crutch. He is still off work. 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 Dr did not say much about his crutch use. The cortizone did help a lot. He called his Dr and said to be set up with some PT. His R knee feels like it wants to give out on him. Pt has not iced the last 2 days but was icing every hour. - Pain R knee pain Pain Intensity (Out of 10): 2 Pain Intensity Range: 2 - Objective Gait: with 1 crutch, decrease stance time on the R, decrease heel to toe gait pattern, decrease stride length. R hip flex 9.3# and L hip flex 12.1#. R knee ext 13.9# and L knee ext 25.1#. R knee flex 11# and L knee flex 11.1#. R hip abd 8# (increase pain lying in L sidelying). L hip abd 16.9#. R knee AROM -1 degree to 90 degrees R knee flexion. R SLR Able to do X 10 but has increase pain. Pt is able to do heel and toe raises at counter with less weight through the R foot. Palpation: tender along the medial joint line to palpation. R gastroc is extrememly tight - Balance/Special Test Scores Lower Extremity Functional Score: 33 - Goals Goal 1:: I HEP Goal Time Frame: 6-8 Weeks Goal 2:: Increase R knee AROM 0-120 degrees flexion Goal Time Frame: 6-8 Weeks Goal 3:: Walk without AD with normal gait pattern Goal Time Frame: 6-8 Weeks Goal 4:: Be able to go up and down the stairs recip with a handrail with minimal pain Goal Time Frame: 6-8 Weeks - Rehabilitation Potential Rehabilitation Potential: Good - Anticipated Interventions Patient/Client Instruction: Educate patient on: Condition, Plan of Care For the Purpose of:: To decrease pain, To decrease swelling/inflammation, To increase ROM, To improve nutrient delivery to tissue, To improve muscle performance and motor function, To improve ability to perform ADL's, To increase tolerance to activity/condition/position, To improve performance and independence with ADL's, To decrease level of supervision to perform tasks, To improve ability of physical actions for home/community/work/leisure, To improve gait and locomotor functions, To improve health of tissue, To decrease soft tissue restriction, To increase flexibility/ROM, To improve balance Therapeutic Exercise to Include: Strength training, Endurance training, Postural training, Flexibilty training, Gait and locomotor training, Neuromotor development, Passive ROM, Active ROM For the Purpose of:: To decrease pain, To decrease swelling/inflammation, To increase ROM, To improve nutrient delivery to tissue, To improve muscle performance and motor function, To improve ability to perform ADL's, To increase tolerance to activity/condition/position, To improve performance and independence with ADL's, To decrease level of supervision to perform tasks, To improve ability of physical actions for home/community/work/leisure, To improve gait and locomotor functions, To improve health of tissue, To decrease soft tissue restriction, To increase flexibility/ROM, To improve endurance, To improve balance Functional Training to Include: Gait training For the Purpose of:: To improve gait and locomotor functions Other electric stimulation: Yes Cryotherapy (ice pack, ice massage): Yes For the Purpose of:: To decrease pain, To decrease swelling/inflammation, To increase ROM, To improve nutrient delivery to tissue Thank you for the opportunity to evaluate your patient. For Medicare and Medicare HMO plans, please review the plan of care and approve it. It will need to be FAXED BACK to us at [phone] for Medicare purposes. For Medicare only, by signing this I certify the plan of care. Please let me know if there are questions or concerns regarding this plan of care. Physician Signature: Date:
--- NOTE | 2022-07-27 08:43 | HP.PT.NRP ---
KEEGAN PAZ was seen in my office for initial evaluation on 06/22/22. The following Plan of Care was established for this patient: Initial Frequency: 3x /Week Initial Duration: 2 Months Patient/Client Instruction: Educate patient on: Condition, Plan of Care For the Purpose of:: To decrease pain, To decrease swelling/inflammation, To increase ROM, To improve nutrient delivery to tissue, To improve muscle performance and motor function, To improve ability to perform ADL's, To increase tolerance to activity/condition/position, To improve performance and independence with ADL's, To decrease level of supervision to perform tasks, To improve ability of physical actions for home/community/work/leisure, To improve gait and locomotor functions, To improve health of tissue, To decrease soft tissue restriction, To increase flexibility/ROM, To improve balance Therapeutic Exercise to Include: Strength training, Endurance training, Postural training, Flexibilty training, Gait and locomotor training, Neuromotor development, Passive ROM, Active ROM For the Purpose of:: To decrease pain, To decrease swelling/inflammation, To increase ROM, To improve nutrient delivery to tissue, To improve muscle performance and motor function, To improve ability to perform ADL's, To increase tolerance to activity/condition/position, To improve performance and independence with ADL's, To decrease level of supervision to perform tasks, To improve ability of physical actions for home/community/work/leisure, To improve gait and locomotor functions, To improve health of tissue, To decrease soft tissue restriction, To increase flexibility/ROM, To improve endurance, To improve balance Functional Training to Include: Gait training For the Purpose of:: To improve gait and locomotor functions Other electric stimulation: Yes Cryotherapy (ice pack, ice massage): Yes For the Purpose of:: To decrease pain, To decrease swelling/inflammation, To increase ROM, To improve nutrient delivery to tissue This patient was last seen in our office 07/04/22. Pertinent comments regarding their Physical therapy will appear below: Pt has no showed several of his last appointments and was taken off the schedule. DC PT At this point I will be discontinuing this patient from physical therapy. I would be happy to see this patient again in the future if found appropriate by the physician. Thank you! Nafisa Bruno, MPT Balance/Gait/Functional tests - Balance/Special Test Scores Lower Extremity Functional Score: 33
== END 2022-07-04 19:00 | disposition home or self-care (01) ==
LOC: PT 11:00
PROVIDERS: PCP Family Medicine; Referring Provider Student in an Organized Health Care Education/Training Program; Visit Provider Student in an Organized Health Care Education/Training Program
DX: M17.11 Unilateral primary osteoarthritis, right knee (principal); M25.461 Effusion, right knee
CPT/HCPCS: 97110; 97161

== ENCOUNTER → 2022-08-14 | Outpatient (CLI) | payer OTHER, SELFPAY ==
[2022-08-14 17:53] LABS: Absolute Neutrophil Count 5.9 X10^3/uL (2.0-7.7); Basophil# 0.05 X10^3/uL; Basophil% 0.5 % (0-1); Eosinophil# 0.31 X10^3/uL; Eosinophils% 3.1 % (0-5); Hemoglobin 13.2 g/dL (13.0-16.5); Mean Corpuscular Hgb 29.9 pg (27.0-32.0); Mean Corpuscular Volume 90.7 fL (80-94); Mean Platelet Vol. 10.3 fl (6.2-12.0); Monocyte# 0.77 X10^3/uL; Monocyte% 7.7 % (0-10); NRBC Flagged by Analyzer 0 % (0-5); Neutrophil # 5.91 X10^3/uL (2.7-7.7); Neutrophil % 59.2 % (47-70); Platelet Count 288 K/mm3 (150-450); RBC Distribution Width CV 13.4 % (11.6-14.6); RBC Distribution Width SD 44.5 fl (35.1-43.9); Red Blood Count 4.41 M/mm3 (4.6-6.2)
[2022-08-14 18:46] LABS: Hemoglobin A1c 6.6 % (3.8-5.6)
[2022-08-14 18:50] LABS: AST(SGOT) 18 U/L (15-37); Alanine Aminotransfer ALT/SGPT 36 U/L (16-61); Albumin, Serum 3.7 g/dL (3.2-5.0); Alkaline Phosphatase 100 U/L (45-117); Anion Gap 9 (5-15); BUN 25 mg/dL (7-18); Calcium,Total 8.8 mg/dL (8.5-10.1); Chloride 101 mmol/L (98-107); Cholesterol 150 mg/dL (200); Creatinine, Serum 1.19 mg/dL (0.70-1.30); EST Glomerular Filtration Rate 69 mL/min (>60); Est Glom Filt Rate - Afr Amer 83 mL/min (>60); Globulin 3.8 g/dL (2.2-4.2); Glucose 233 mg/dL (74-106); High Density Lipoprotein 36 mg/dL; Microalbumin,Random Urine 21.9 mg/L (NO RANGE EST.); Microalbumin:Creatinine Ratio 10.5 mg/g CRE (<30 mg/g CRE); Potassium 3.8 mmol/L (3.5-5.1); Protein, Total 7.5 g/dL (6.4-8.2); Sodium Level 138 mmol/L (136-145); Triglycerides 256 mg/dL; Very Low Density Lipoprotein 51 mg/dL (5-40)
[2022-08-14 19:01] LABS: Vitamin D,25 Hydroxy 24.4 ng/mL
== END | disposition home or self-care (01) ==
LOC: MFPLAB 16:38
PROVIDERS: PCP Family Medicine; Referring Provider Family Medicine; Visit Provider Family Medicine
DX: E11.9 Type 2 diabetes mellitus without complications (principal); E55.9 Vitamin D deficiency, unspecified
CPT/HCPCS: 36415; 80053; 80061; 82043; 82306; 82570; 83036; 85025

== ENCOUNTER → 2023-01-01 | Outpatient (CLI) | payer OTHER, SELFPAY ==
[2023-01-01 16:03] LABS: Absolute Lymphocyte Count 2.38 X10^3/uL (0.83-4.51); Absolute Neutrophil Count 6.2 X10^3/uL (2.0-7.7); Basophil# 0.04 X10^3/uL; Basophil% 0.4 % (0-1); Eosinophil# 0.33 X10^3/uL; Eosinophils% 3.4 % (0-5); Hematocrit 39.3 % (40-54); Hemoglobin 12.8 g/dL (13.0-16.5); Lymphocyte # 2.38 X10^3/ul (0.83-4.51); Lymphocyte % 24.6 % (19-41); Mean Corp Hgb Conc 32.6 g/dL (32-36); Mean Corpuscular Hgb 29.6 pg (27.0-32.0); Monocyte# 0.75 X10^3/uL; Monocyte% 7.7 % (0-10); NRBC Flagged by Analyzer 0 % (0-5); Neutrophil # 6.15 X10^3/uL (2.7-7.7); Neutrophil % 63.5 % (47-70); Platelet Count 235 K/mm3 (150-450); RBC Distribution Width CV 13.4 % (11.6-14.6); RBC Distribution Width SD 44.7 fl (35.1-43.9); Red Blood Count 4.32 M/mm3 (4.6-6.2); White Blood Count 9.7 K/mm3 (4.4-11.0)
[2023-01-01 16:04] LABS: Vitamin D,25 Hydroxy 36.1 ng/mL
[2023-01-01 16:15] LABS: ALB/GLOB Ratio 0.8 RATIO (0.9-2.4); AST(SGOT) 20 U/L (15-37); Alanine Aminotransfer ALT/SGPT 37 U/L (16-61); Albumin, Serum 3.7 g/dL (3.2-5.0); Alkaline Phosphatase 99 U/L (45-117); Anion Gap 8 (5-15); BUN 23 mg/dL (7-18); BUN/Creat Ratio 21.1 RATIO (10-20); Calcium,Total 9.2 mg/dL (8.5-10.1); Chloride 107 mmol/L (98-107); Cholesterol 147 mg/dL (200); Creatinine, Serum 1.09 mg/dL (0.70-1.30); EST Glomerular Filtration Rate 76 mL/min (>60); Est Glom Filt Rate - Afr Amer 92 mL/min (>60); Globulin 4.6 g/dL (2.2-4.2); Glucose 121 mg/dL (74-106); High Density Lipoprotein 36 mg/dL; Potassium 3.6 mmol/L (3.5-5.1); Protein, Total 8.3 g/dL (6.4-8.2); Sodium Level 141 mmol/L (136-145); Triglycerides 237 mg/dL; Very Low Density Lipoprotein 47 mg/dL (5-40)
[2023-01-01 16:20] LABS: Hemoglobin A1c 7.1 % (3.8-5.6)
[2023-01-02 10:59] LABS: Vitamin B12 211 pg/mL (211-911)
[2023-01-02 11:12] LABS: Ferritin 114 ng/mL (26-388); Iron 56 ug/dL (65-175); Iron Binding Capacity,Total 301 ug/dL (250-450); PERCENT IRON SATURATION 18.6 % (15.0-55.0)
[2023-01-03 05:07] LABS: Transferrin 252 mg/dL (177-329)
== END | disposition home or self-care (01) ==
LOC: MTLAB 11:37
PROVIDERS: PCP Family Medicine; Referring Provider Family Medicine; Visit Provider Family Medicine
DX: D64.9 Anemia, unspecified (principal); E11.9 Type 2 diabetes mellitus without complications; E55.9 Vitamin D deficiency, unspecified
CPT/HCPCS: 36415; 80053; 80061; 82043; 82306; 82570; 82607; 82728; 83036; 83540; 83550; 84466; 85025

== ENCOUNTER → 2023-05-17 | Outpatient (CLI) | payer OTHER, SELFPAY ==
[2023-05-17 17:50] LABS: Absolute Lymphocyte Count 2.27 X10^3/uL (0.83-4.51); Absolute Neutrophil Count 5.7 X10^3/uL (2.0-7.7); Basophil# 0.03 X10^3/uL; Basophil% 0.3 % (0-1); Eosinophil# 0.36 X10^3/uL; Eosinophils% 3.9 % (0-5); Hematocrit 37.4 % (40-54); Hemoglobin 12.4 g/dL (13.0-16.5); Lymphocyte # 2.27 X10^3/ul (0.83-4.51); Lymphocyte % 24.7 % (19-41); Mean Corp Hgb Conc 33.2 g/dL (32-36); Mean Corpuscular Hgb 30.2 pg (27.0-32.0); Mean Platelet Vol. 10.4 fl (6.2-12.0); Monocyte# 0.75 X10^3/uL; Monocyte% 8.2 % (0-10); NRBC Flagged by Analyzer 0 % (0-5); Neutrophil # 5.72 X10^3/uL (2.7-7.7); Neutrophil % 62.2 % (47-70); Platelet Count 232 K/mm3 (150-450); Red Blood Count 4.11 M/mm3 (4.6-6.2); White Blood Count 9.2 K/mm3 (4.4-11.0)
[2023-05-17 18:18] LABS: ALB/GLOB Ratio 0.9 RATIO (0.9-2.4); AST(SGOT) 24 U/L (15-37); Alanine Aminotransfer ALT/SGPT 42 U/L (16-61); Albumin, Serum 3.6 g/dL (3.2-5.0); Alkaline Phosphatase 114 U/L (45-117); Anion Gap 6 (5-15); BUN 26 mg/dL (7-18); Calcium,Total 8.8 mg/dL (8.5-10.1); Chloride 104 mmol/L (98-107); Cholesterol 142 mg/dL (200); EST Glomerular Filtration Rate 62 mL/min (>60); Est Glom Filt Rate - Afr Amer 75 mL/min (>60); Globulin 3.9 g/dL (2.2-4.2); Glucose 263 mg/dL (74-106); High Density Lipoprotein 31 mg/dL; Potassium 3.6 mmol/L (3.5-5.1); Protein, Total 7.5 g/dL (6.4-8.2); Sodium Level 137 mmol/L (136-145); Triglycerides 250 mg/dL; Very Low Density Lipoprotein 50 mg/dL (5-40)
[2023-05-17 18:27] LABS: Microalbumin,Random Urine 20.4 mg/L (NO RANGE EST.); Microalbumin:Creatinine Ratio 10.7 mg/g CRE (<30 mg/g CRE)
[2023-05-17 18:43] LABS: Hemoglobin A1c 8.1 % (3.8-5.6); Vitamin D,25 Hydroxy 25.4 ng/mL
== END | disposition home or self-care (01) ==
LOC: MFPLAB 16:10
PROVIDERS: PCP Family Medicine; Visit Provider Family Medicine
DX: E11.29 Type 2 diabetes mellitus with other diabetic kidney complication (principal); E55.9 Vitamin D deficiency, unspecified
CPT/HCPCS: 36415; 80053; 80061; 82043; 82306; 82570; 83036; 85025

== ENCOUNTER → 2023-09-10 | Outpatient (CLI) | payer OTHER, SELFPAY ==
[2023-09-10 11:13] LABS: Bacteria 0 SEEN /hpf (None Seen); Mucous, Urine 0 SEEN /hpf (<or=2+)
--- OUTSIDE RECORDS SUMMARY | 2023-09-10 12:02 | XMS RPT_ITS | CCD ---
Author Name Unknown Address [address] [place] [address] Organization [facility] Care Team Providers Care Log Sorting Supervisor Name Role Phone MARCIA CAMPBELL Consulting Unavailable FARIDA TORRES Attending Unavailable FARIDA TORRES Primary Care Unavailable FARIDA TORRES Admitting Unavailable PROVIDER, UNKNOWN Consulting Unavailable Results Test Name Value Interpretation Reference Range Facil ity Encounters Encounter Date Encounter Type Care Provider Facility Start: 06-13-2022 End: 06-13-2022 ambulatory MARCIA CAMPBELL [facility] Payers Date Payer Category Payer Unknown [id number] Unknown [id number] Summary Purpose Family History No Family History Records Found Advance Directives No Advanced Directives Records Found Additional Source Comments (unrecognized sect ion and content) No Status Records Found INFORMATION SOURCE (unrecogn ized section and content) FOR RECORDS PERTAINING TO PATIENTS WHO ARE OR HAVE BEEN ENROLLED IN A CHEMICAL DEPENDENCY/SUBSTANCEABUSE PROGRAM, SOME INFORMATION MAY BE OMITTED. This clinical summary was aggregated from multiple sources. Caution should be exercised in using it in the provision of clinical care. This summary normalizes information from multiple sources, and as a consequence, information in this document may materially change the coding, format and clinical context of patient data. In addition, data may be omitted in some cases. CLINICAL DECISIONS SHOULD BE BASED ON THE PRIMARY CLINICAL RECORDS. [employer] provides no warranty or guarantee of the accuracy or completeness of information in this document.
[2023-09-10 12:22] LABS: Absolute Neutrophil Count 4.1 X10^3/uL (2.0-7.7); Basophil# 0.03 X10^3/uL; Basophil% 0.4 % (0-1); Eosinophil# 0.19 X10^3/uL; Eosinophils% 2.7 % (0-5); Hematocrit 41.9 % (40-54); Hemoglobin 13.8 g/dL (13.0-16.5); Lymphocyte % 26.6 % (19-41); Mean Corp Hgb Conc 32.9 g/dL (32-36); Mean Corpuscular Hgb 29.7 pg (27.0-32.0); Mean Corpuscular Volume 90.1 fL (80-94); Mean Platelet Vol. 9.9 fl (6.2-12.0); Monocyte% 12.6 % (0-10); NRBC Flagged by Analyzer 0 % (0-5); Neutrophil % 57.3 % (47-70); Platelet Count 214 K/mm3 (150-450); RBC Distribution Width CV 13.5 % (11.6-14.6); RBC Distribution Width SD 44.6 fl (35.1-43.9); Red Blood Count 4.65 M/mm3 (4.6-6.2); White Blood Count 7.2 K/mm3 (4.4-11.0)
[2023-09-10 12:33] LABS: Color, Urine Yellow (Yellow); Glucose, Dipstick Normal (Normal); Ketone-Dipstick 5 mg/dl (Negative); Leukocyte Esterase-Dipstick 25 /ul (Negative); Nitrite-Dipstick Negative (Negative); Occult Blood-Urine 10 /ul (Negative); Protein-Dipstick 30 mg/dl (Negative); Urine Clarity Clear (Clear); Urine Urobilinogen 1 mg/dl (Normal)
[2023-09-10 12:35] LABS: Urine Bilirubin Dipstick 1 mg/dL (Negative)
[2023-09-10 12:42] LABS: Red Blood Cells-Urine 0-5 SEEN /hpf (0-5); Squamous Epithelial Cells - UA 0-5 SEEN /hpf (0-5); White Blood Cells 0-5 SEEN /hpf (0-5)
[2023-09-10 12:50] LABS: Microalbumin,Random Urine 50.7 mg/L (NO RANGE EST.)
[2023-09-10 12:59] LABS: Vitamin D,25 Hydroxy 35.6 ng/mL
[2023-09-10 13:01] LABS: ALB/GLOB Ratio 0.9 RATIO (0.9-2.4); AST(SGOT) 37 U/L (15-37); Alanine Aminotransfer ALT/SGPT 55 U/L (16-61); Albumin, Serum 3.6 g/dL (3.2-5.0); Alkaline Phosphatase 119 U/L (45-117); Anion Gap 10 (5-15); BUN 19 mg/dL (7-18); BUN/Creat Ratio 16.1 RATIO (10-20); Chloride 104 mmol/L (98-107); Cholesterol 95 mg/dL (200); Creatinine, Serum 1.18 mg/dL (0.70-1.30); EST Glomerular Filtration Rate 69 mL/min (>60); Est Glom Filt Rate - Afr Amer 84 mL/min (>60); Globulin 4.1 g/dL (2.2-4.2); Glucose 157 mg/dL (74-106); High Density Lipoprotein 31 mg/dL; Potassium 3.3 mmol/L (3.5-5.1); Protein, Total 7.7 g/dL (6.4-8.2); Sodium Level 138 mmol/L (136-145); Triglycerides 109 mg/dL; Very Low Density Lipoprotein 22 mg/dL (5-40)
[2023-09-10 13:34] LABS: Hemoglobin A1c 7.5 % (3.8-5.6)
== END | disposition home or self-care (01) ==
LOC: MFPLAB 11:07
PROVIDERS: PCP Family Medicine; Visit Provider Family Medicine
DX: E11.29 Type 2 diabetes mellitus with other diabetic kidney complication (principal); E55.9 Vitamin D deficiency, unspecified
CPT/HCPCS: 36415; 80053; 80061; 81001; 82043; 82306; 82570; 83036; 85025

== ENCOUNTER → 2024-01-22 | Outpatient (CLI) | payer OTHER, SELFPAY ==
[2024-01-22 15:22] LABS: Absolute Neutrophil Count 4.5 X10^3/uL (2.0-7.7); Basophil# 0.04 X10^3/uL; Basophil% 0.6 % (0-1); Eosinophil# 0.32 X10^3/uL; Eosinophils% 4.4 % (0-5); Hematocrit 41.7 % (40-54); Hemoglobin 13.4 g/dL (13.0-16.5); Mean Corp Hgb Conc 32.1 g/dL (32-36); Mean Corpuscular Hgb 29.3 pg (27.0-32.0); Mean Corpuscular Volume 91.2 fL (80-94); Mean Platelet Vol. 10.7 fl (6.2-12.0); Monocyte# 0.49 X10^3/uL; Monocyte% 6.8 % (0-10); NRBC Flagged by Analyzer 0 % (0-5); Neutrophil # 4.54 X10^3/uL (2.7-7.7); Neutrophil % 62.9 % (47-70); Platelet Count 211 K/mm3 (150-450); RBC Distribution Width CV 13.5 % (11.6-14.6); Red Blood Count 4.57 M/mm3 (4.6-6.2); White Blood Count 7.2 K/mm3 (4.4-11.0)
[2024-01-22 16:00] LABS: ALB/GLOB Ratio 0.9 RATIO (0.9-2.4); AST(SGOT) 33 U/L (15-37); Alanine Aminotransfer ALT/SGPT 45 U/L (16-61); Albumin, Serum 3.5 g/dL (3.2-5.0); Alkaline Phosphatase 92 U/L (45-117); Anion Gap 7 (5-15); BUN 17 mg/dL (7-18); BUN/Creat Ratio 14.4 RATIO (10-20); Calcium,Total 9.1 mg/dL (8.5-10.1); Chloride 105 mmol/L (98-107); Cholesterol 145 mg/dL (200); Creatinine, Serum 1.18 mg/dL (0.70-1.30); EST Glomerular Filtration Rate 69 mL/min (>60); Est Glom Filt Rate - Afr Amer 84 mL/min (>60); Globulin 3.8 g/dL (2.2-4.2); Glucose 239 mg/dL (74-106); Hemoglobin A1c 7.7 % (3.8-5.6); High Density Lipoprotein 30 mg/dL; Protein, Total 7.3 g/dL (6.4-8.2); Sodium Level 137 mmol/L (136-145); Triglycerides 216 mg/dL; Very Low Density Lipoprotein 43 mg/dL (5-40)
[2024-01-22 16:09] LABS: Vitamin D,25 Hydroxy 24.5 ng/mL
== END | disposition home or self-care (01) ==
LOC: MFPLAB 11:40
PROVIDERS: PCP Family Medicine; Visit Provider Family Medicine
DX: E55.9 Vitamin D deficiency, unspecified (principal); E11.9 Type 2 diabetes mellitus without complications
CPT/HCPCS: 36415; 80053; 80061; 82306; 83036; 85025

== ENCOUNTER → 2024-07-03 | Outpatient (CLI) | payer OTHER, SELFPAY ==
[2024-07-03 12:38] LABS: Absolute Lymphocyte Count 2.02 X10^3/uL (0.83-4.51); Absolute Neutrophil Count 4.3 X10^3/uL (2.0-7.7); Basophil# 0.03 X10^3/uL; Basophil% 0.4 % (0-1); Eosinophil# 0.28 X10^3/uL; Eosinophils% 3.8 % (0-5); Hematocrit 45.3 % (40-54); Hemoglobin 14.8 g/dL (13.0-16.5); Lymphocyte # 2.02 X10^3/ul (0.83-4.51); Lymphocyte % 27.7 % (19-41); Mean Corp Hgb Conc 32.7 g/dL (32-36); Mean Corpuscular Hgb 29.6 pg (27.0-32.0); Mean Corpuscular Volume 90.6 fL (80-94); Mean Platelet Vol. 10.7 fl (6.2-12.0); Monocyte% 8.2 % (0-10); NRBC Flagged by Analyzer 0 % (0-5); Neutrophil # 4.32 X10^3/uL (2.7-7.7); Neutrophil % 59.5 % (47-70); Platelet Count 218 K/mm3 (150-450); RBC Distribution Width CV 12.8 % (11.6-14.6); RBC Distribution Width SD 42.2 fl (35.1-43.9); White Blood Count 7.3 K/mm3 (4.4-11.0)
[2024-07-03 12:46] LABS: Vitamin D,25 Hydroxy 16.6 ng/mL
[2024-07-03 12:55] LABS: AST(SGOT) 26 U/L (15-37); Alanine Aminotransfer ALT/SGPT 47 U/L (16-61); Albumin, Serum 3.9 g/dL (3.2-5.0); Alkaline Phosphatase 126 U/L (45-117); Anion Gap 6 (5-15); BUN 16 mg/dL (7-18); BUN/Creat Ratio 14.4 RATIO (10-20); Calcium,Total 9.5 mg/dL (8.5-10.1); Chloride 100 mmol/L (98-107); Cholesterol 148 mg/dL (200); Creatinine, Serum 1.11 mg/dL (0.70-1.30); EST Glomerular Filtration Rate 74 mL/min (>60); Est Glom Filt Rate - Afr Amer 90 mL/min (>60); Globulin 3.9 g/dL (2.2-4.2); Glucose 232 mg/dL (74-106); High Density Lipoprotein 37 mg/dL; Potassium 3.8 mmol/L (3.5-5.1); Protein, Total 7.8 g/dL (6.4-8.2); Sodium Level 136 mmol/L (136-145); Triglycerides 172 mg/dL; Very Low Density Lipoprotein 34 mg/dL (5-40)
[2024-07-03 13:32] LABS: Hemoglobin A1c 9.7 % (3.8-5.6)
== END | disposition home or self-care (01) ==
LOC: MFPLAB 09:11
PROVIDERS: PCP Family Medicine; Visit Provider Family Medicine
DX: E11.8 Type 2 diabetes mellitus with unspecified complications (principal); E55.9 Vitamin D deficiency, unspecified
CPT/HCPCS: 36415; 80053; 80061; 82306; 83036; 85025

== ENCOUNTER → 2024-09-22 | Outpatient (CLI) | payer OTHER, SELFPAY ==
[2024-09-22 17:55] LABS: Absolute Lymphocyte Count 3.02 X10^3/uL (0.83-4.51); Absolute Neutrophil Count 6.1 X10^3/uL (2.0-7.7); Basophil# 0.05 X10^3/uL; Basophil% 0.5 % (0-1); Eosinophil# 0.23 X10^3/uL; Eosinophils% 2.2 % (0-5); Hematocrit 42.6 % (40-54); Hemoglobin 14.2 g/dL (13.0-16.5); Lymphocyte # 3.02 X10^3/ul (0.83-4.51); Lymphocyte % 29.2 % (19-41); Mean Corp Hgb Conc 33.3 g/dL (32-36); Mean Corpuscular Hgb 29.6 pg (27.0-32.0); Mean Corpuscular Volume 88.9 fL (80-94); Mean Platelet Vol. 10.1 fl (6.2-12.0); Monocyte# 0.92 X10^3/uL; Monocyte% 8.9 % (0-10); NRBC Flagged by Analyzer 0 % (0-5); Neutrophil # 6.07 X10^3/uL (2.7-7.7); Neutrophil % 58.7 % (47-70); Platelet Count 237 K/mm3 (150-450); RBC Distribution Width CV 13.2 % (11.6-14.6); RBC Distribution Width SD 43.1 fl (35.1-43.9); Red Blood Count 4.79 M/mm3 (4.6-6.2); White Blood Count 10.3 K/mm3 (4.4-11.0)
[2024-09-22 18:25] LABS: Hemoglobin A1c 8.2 % (3.8-5.6)
[2024-09-22 19:41] LABS: AST(SGOT) 19 U/L (15-37); Alanine Aminotransfer ALT/SGPT 34 U/L (16-61); Alkaline Phosphatase 111 U/L (45-117); Anion Gap 9 (5-15); BUN 21 mg/dL (7-18); BUN/Creat Ratio 17.5 RATIO (10-20); Calcium,Total 9.7 mg/dL (8.5-10.1); Chloride 101 mmol/L (98-107); Cholesterol 168 mg/dL (200); EST Glomerular Filtration Rate 68 mL/min (>60); Est Glom Filt Rate - Afr Amer 82 mL/min (>60); Glucose 165 mg/dL (74-106); High Density Lipoprotein 38 mg/dL; PSA,Total - Annual Screen 0.44 ng/mL (0.00-4.00); Potassium 3.5 mmol/L (3.5-5.1); Sodium Level 136 mmol/L (136-145); Triglycerides 246 mg/dL; Very Low Density Lipoprotein 49 mg/dL (5-40)
== END | disposition home or self-care (01) ==
LOC: MFPLAB 16:46
PROVIDERS: PCP Family Medicine; Referring Provider Family Medicine; Visit Provider Family Medicine
DX: E11.8 Type 2 diabetes mellitus with unspecified complications (principal); Z12.5 Encounter for screening for malignant neoplasm of prostate
CPT/HCPCS: 36415; 80053; 80061; 83036; 84153; 85025; G0103

== ENCOUNTER 2025-08-25 15:59 | Outpatient (CLI) | payer OTHER, SELFPAY ==
[2025-08-25 16:02] LABS: Mucous, Urine 0 SEEN /hpf (<or=2+)
--- OUTSIDE RECORDS SUMMARY | 2025-08-25 16:13 | XMS RPT_ITS | CCD ---
Author Organization [facility] Care Team Providers Care Human Services Assistant Name Role Phone MARCIA CAMPBELL Consulting Unavailable FARIDA TORRES Attending Unavailable FARIDA TORRES Primary Care Unavailable FARIDA TORRES Admitting Unavailable PROVIDER, UNKNOWN Consulting Unavailable Dr. Marcia Campbell Primary Care Provider Dr. Marcia Campbell Referring Provider Dr. Zhou Thompson Attending Provider Marcia Campbell Primary Care Unavailable Marcia Campbell Referring Unavailable Marcia Campbell Attending Unavailable Marcia Campbell Primary Care Unavailable Marcia Campbell Attending Unavailable Marcia Campbell Attending Unavailable Marcia Campbell Primary Care Unavailable Medications Current Medications Medication Drug Class(es) Dates Sig (Normalized) Sig (Original) acetaminophen 325 mg / oxyCODONE hydrochloride 5 mg oral tablet (6 sources) Opioid Agonist Start: 06-05-20 take 1 tablet by mouth every six hours as needed Oxycodone-Acetaminophe n Active 1 TABLET PO EVERY 6 HOURS NEEDED 12 3 June 05, 2022 amLODIPine 10 mg oral tablet (6 sources) Dihydropyridine Calcium Channel Ju[place] Start: 06-05-20 22 take 10 mg by mouth once daily Amlodipine Active 10 MG PO DAILY June 04, 2022 11:00pm cholecalciferol 0.125 mg oral capsule (7 sources) Vitamin D Start: 01-18-20 19 take 5000 [IU] by mouth once daily Cholecalciferol (Vitamin D3) Active 5000 UNIT PO DAILY January 16, 2019 11:00pm hydroCHLOROthiazide 25 mg oral tablet (7 sources) Thiazide Diuretic Start: 10-23-19 take 25 mg by mouth once daily Hydrochlorothiazide Active 25 MG PO DAILY October 23, 2018 12:00am lisinopril 20 mg oral tablet (14 sources) Angiotensin Converting Enzyme Inhibitor Start: 11-28-19 take 20 mg by mouth twice daily Lisinopril Active 20 MG PO TWICE A DAY November 27, 2020 7:30pm Start: 10-23-2018 End: 11-27-2020 take 20 mg by mouth once daily Lisinopril Discontinued 20 MG PO DAILY October 23, 2018 12:00am November 27, 2020 7:30pm meclizine hydrochloride 25 mg oral tablet (1 source) Antiemetic Start: 01-18-2019 take 25 mg by mouth four times daily as needed Meclizine Active 25 MG PO 4 TIMES DAILY NEEDED January 18, 2019 11:06am metFORMIN hydrochloride 850 mg oral tablet (14 sources) Biguanide Start: 01-17-2019 take 1000 mg by mouth twice daily before mealtime Metformin Active 1000 MG PO TWICE DAILY BEFORE MEALS January 17, 2019 3:51pm Start: 10-23-2018 End: 01-17-2019 take 850 mg by mouth twice daily before mealtime Metformin Discontinued 850 MG PO TWICE DAILY BEFORE MEALS October 23, 2018 12:00am January 17, 2019 3:51pm Completed/Discontinued Medications Medication Drug Class(es) Dates Sig (Normalized) Sig (Original) 24 hr metoprolol succinate 50 mg extended release oral tablet (7 sources) beta-Adrenergic [place] Start: 10-23-2018 End: 01-17-2019 take 50 mg by mouth once daily Metoprolol Succinate Discontinued 50 MG PO DAILY October 23, 2018 12:00am January 17, 2019 3:51pm Problems Problem Classification Problem Date Documented Da te Episodic/Chronic Conditions associated with dizziness or vertigo (7 sources) Vertigo 06-01-2022 Episodic Deficiency and other anemia (1 source) Anemia, unspecified; Translations: [Anemia, unspecified] 01-30-2023 Episodic Diabetes mellitus with complications (8 sources) Type II diabetes mellitus uncontrolled; Translations: [Uncontrolled type 2 diabetes mellitus] Onset: 10-09-2024 06-05-2022 Chronic Essential hypertension (7 sources) Hypertensive disorder; Translations: [Essential (primary) hypertension] 11-28-2020 Chronic Hypertension with complications and secondary hypertension (7 sources) Hypertensive urgency ; Translations: [Hypertensive urgency] 01-17-2019 Chronic Nonspecific chest pain (7 sources) Chest pain; Translations: [Chest pain, unspecified] 01-17-2019 Episodic Nutritional deficiencies (1 source) Vitamin D deficiency, unspecified; Translations: [Vitamin D deficiency, unspecified] Onset: 01-30-2024 Chronic Other non-traumatic joint disorders (6 sources) Effusion of right knee joint; Translations: [Effusion, right knee] 06-13-2022 Episodic Other non-traumatic joint disorders (6 sources) Pain in right knee; Translations: [Acute pain of right knee] 06-13-2022 Episodic Other nutritional; endocrine; and metabolic disorders (7 sources) Morbid obesity; Translations: [Morbid (severe) obesity due to excess calories] 06-05-2022 Chronic Results Test Name Value Interpretation Reference Range Facility CBC W/Diff, Automatedon 08-27 Absolute Lymph 3.02 X10 3/uL Normal 0.83-4.51 [facility] Comment on above: Order Comment: Order Date: 09/22/24 Order Info: [id number] - CBCD Performed By: #### L 502.0250, L500.4100, L500.4050, L100.0100, L501.9910, L501.9985 #### [facility] [address], [address] Absolute Neut 6.1 X10 3/uL Normal 2.0-7.7 [facility] Comment on above: Order Comment: Order Date: 09/22/24 Order Info: [id number] - CBCD Performed By: #### L 502.0250, L500.4100, L500.4050, L100.0100, L501.9910, L501.9985 #### [facility] [address] [place], [address] Basophils/100 WBC (Bld) 0.5 % Normal 0-1 [facility] Comment on above: Order Comment: Order Date: 09/22/24 Order Info: [id number] - CBCD Performed By: #### L 502.0250, L500.4100, L500.4050, L100.0100, L501.9910, L501.9985 #### [facility] [address] [place], [address] Eosinophils/100 WBC (Bld) 2.2 % Normal 0-5 [facility] Comment on above: Order Comment: Order Date: 09/22/24 Order Info: [id number] - CBCD Performed By: #### L 502.0250, L500.4100, L500.4050, L100.0100, L501.9910, L501.9985 #### [facility] [address] [place], [address] Erythrocyte distribution width (RBC) [Ratio] 13.2 % Normal 11.6-14.6 [facility] Comment on above: Order Comment: Order Date: 09/22/24 Order Info: [id number] - CBCD Performed By: #### L 502.0250, L500.4100, L500.4050, L100.0100, L501.9910, L501.9985 #### [facility] [address] [place], [address] Hematocrit (Bld) [Volume fraction] 42.6 % Normal 40-54 [facility] Comment on above: Order Comment: Order Date: 09/22/24 Order Info: [id number] - CBCD Performed By: #### L 502.0250, L500.4100, L500.4050, L100.0100, L501.9910, L501.9985 #### [facility] [address] [place], [address] Hemoglobin (Bld) [Mass/Vol] 14.2 g/dL Normal 13.0-16. 5 [facility] Comment on above: Order Comment: Order Date: 09/22/24 Order Info: [id number] - CBCD Performed By: #### L 502.0250, L500.4100, L500.4050, L100.0100, L501.9910, L501.9985 #### [facility] [address] [place], [address] IG% 0.500 Normal 0.0-0.9 [facility] Comment on above: Order Comment: Order Date: 09/22/24 Order Info: [id number] - CBCD Result Comment: IG% - Immature Granulocytes (promyelocytes, myelocytes and metamyelocytes) > 1% indicates that a LEFT SHIFT is Present. Performed By: #### L 502.0250, L500.4100, L500.4050, L100.0100, L501.9910, L501.9985 #### [facility] [address], [address] Lymphocytes/100 WBC (Bld) 29.2 % Normal 19-41 [facility] Comment on above: Order Comment: Order Date: 09/22/24 Order Info: [id number] - CBCD Performed By: #### L 502.0250, L500.4100, L500.4050, L100.0100, L501.9910, L501.9985 #### [facility] [address], [address] MCH (RBC) [Entitic mass] 29.6 pg Normal 27.0-32.0 [facility] Comment on above: Order Comment: Order Date: 09/22/24 Order Info: [id number] - CBCD Performed By: #### L 502.0250, L500.4100, L500.4050, L100.0100, L501.9910, L501.9985 #### [facility] [address] [place], [address] MCHC (RBC) [Mass/Vol] 33.3 g/dL Normal 32-36 [facility] Comment on above: Order Comment: Order Date: 09/22/24 Order Info: [id number] - CBCD Performed By: #### L 502.0250, L500.4100, L500.4050, L100.0100, L501.9910, L501.9985 #### [facility] [address] [place], [address] MCV (RBC) [Entitic vol] 88.9 fL Normal 80-94 [facility] Comment on above: Order Comment: Order Date: 09/22/24 Order Info: [id number] - CBCD Performed By: #### L 502.0250, L500.4100, L500.4050, L100.0100, L501.9910, L501.9985 #### [facility] [address] [place], [address] Monocytes/100 WBC (Bld) 8.9 % Normal 0-10 [facility] Comment on above: Order Comment: Order Date: 09/22/24 Order Info: [id number] - CBCD Performed By: #### L 502.0250, L500.4100, L500.4050, L100.0100, L501.9910, L501.9985 #### [facility] [address] [place], [address] Neutrophils/100 WBC (Bld) 58.7 % Normal 47-70 [facility] Comment on above: Order Comment: Order Date: 09/22/24 Order Info: [id number] - CBCD Performed By: #### L 502.0250, L500.4100, L500.4050, L100.0100, L501.9910, L501.9985 #### [facility] [address] [place], [address] Nucleated RBC (Bld) [#/Vol] 0 10*3/uL Normal 0-5 [facility] Comment on above: Order Comment: Order Date: 09/22/24 Order Info: [id number] - CBCD Performed By: #### L 502.0250, L500.4100, L500.4050, L100.0100, L501.9910, L501.9985 #### [facility] [address] [place], [address] Platelet mean volume (Bld) [Entitic vol] 10.1 fL Normal 6.2-12.0 [facility] Comment on above: Order Comment: Order Date: 09/22/24 Order Info: [id number] - CBCD Performed By: #### L 502.0250, L500.4100, L500.4050, L100.0100, L501.9910, L501.9985 #### [facility] [address] [place], [address] Platelets (Bld) [#/Vol] 237 10*3/uL Normal 150-450 [facility] Comment on above: Order Comment: Order Date: 09/22/24 Order Info: [id number]- - CBCD Performed By: #### L 502.0250, L500.4100, L500.4050, L100.0100, L501.9910, L501.9985 #### [facility] [address] [place], [address] RBC (Bld) [#/Vol] 4.79 10*6/uL Normal 4.6-6.2 [facility] Comment on above: Order Comment: Order Date: 09/22/24 Order Info: [id number]- - CBCD Performed By: #### L 502.0250, L500.4100, L500.4050, L100.0100, L501.9910, L501.9985 #### [facility] [address] [place], [address] RDW SD 43.1 fl Normal 35.1-43.9 [facility] Comment on above: Order Comment: Order Date: 09/22/24 Order Info: [id number] - CBCD Performed By: #### L 502.0250, L500.4100, L500.4050, L100.0100, L501.9910, L501.9985 #### [facility] [address] [place], [address] WBC (Bld) [#/Vol] 10.3 10*3/uL Normal 4.4-11.0 [facility] Comment on above: Order Comment: Order Date: 09/22/24 Order Info: [id number] - CBCD Performed By: #### L 502.0250, L500.4100, L500.4050, L100.0100, L501.9910, L501.9985 #### [facility] [address] [place], [address] Comprehensive Metabolic Prof ilon 09-22-2024 Albumin [Mass/Vol] 4.0 g/dL Normal 3.2-5.0 [facility] Comment on above: Order Comment: Order Date: 09/22/24 Order Info: 0786- - CMP Order Info: [id number] - LIPID Order Info: [id number] - PSA Performed By: #### L 502.0250, L500.4100, L500.4050, L100.0100, L501.9910, L501.9985 #### [facility] [address] [place], [place], [id number] Albumin/Globulin [Mass ratio] 1.0 {ratio} Normal 0.9-2.4 [facility] Comment on above: Order Comment: Order Date: 09/22/24 Order Info: 0786- - CMP Order Info: [id number] - LIPID Order Info: [id number] - PSA Performed By: #### L 502.0250, L500.4100, L500.4050, L100.0100, L501.9910, L501.9985 #### [facility] [address] [place], [place], [address] ALK P 111 U/L Normal 45-117 [facility] Comment on above: Order Comment: Order Date: 09/22/24 Order Info: [id number] - CMP Order Info: [id number] - LIPID Order Info: [id number] - PSA Performed By: #### L 502.0250, L500.4100, L500.4050, L100.0100, L501.9910, L501.9985 #### [facility] [address] [place], [address] ALT [Catalytic activity/Vol] 34 U/L Normal 16-61 [facility] Comment on above: Order Comment: Order Date: 09/22/24 Order Info: [id number] - CMP Order Info: [id number] - LIPID Order Info: [id number] - PSA Performed By: #### L 502.0250, L500.4100, L500.4050, L100.0100, L501.9910, L501.9985 #### [facility] [address] [place], [address] AST [Catalytic activity/Vol] 19 U/L Normal 15-37 [facility] Comment on above: Order Comment: Order Date: 09/22/24 Order Info: 0786- - CMP Order Info: [id number] - LIPID Order Info: [id number] - PSA Performed By: #### L 502.0250, L500.4100, L500.4050, L100.0100, L501.9910, L501.9985 #### [facility] [address] [place], [address] Bilirubin [Mass/Vol] 0.50 mg/dL Normal 0.20-1.00 [facility] Comment on above: Order Comment: Order Date: 09/22/24 Order Info: [id number] - CMP Order Info: [id number] - LIPID Order Info: [id number] - PSA Result Comment: For patients on eltrombopag therapy, use of Dimension Eugene TBIL is not recommended. Performed By: #### L 502.0250, L500.4100, L500.4050, L100.0100, L501.9910, L501.9985 #### [facility] [address] [place], [address] BUN/CRE 17.5 RATIO Normal 10-20 [facility] Comment on above: Order Comment: Order Date: 09/22/24 Order Info: [id number] - CMP Order Info: - LIPID Order Info: [id number] - PSA Performed By: #### L 502.0250, L500.4100, L500.4050, L100.0100, L501.9910, L501.9985 #### [facility] [address] [place], [address] CA,Total 9.7 mg/dL Normal 8.5-10.1 [facility] Comment on above: Order Comment: Order Date: 09/22/24 Order Info: [id number] - CMP Order Info: - LIPID Order Info: [id number] - PSA Performed By: #### L 502.0250, L500.4100, L500.4050, L100.0100, L501.9910, L501.9985 #### [facility] [address] [place], [place], [id number] Chloride [Moles/Vol] 101 mmol/L Normal 98-107 [facility] Comment on above: Order Comment: Order Date: 09/22/24 Order Info: [id number] - CMP Order Info: - LIPID Order Info: [id number] - PSA Performed By: #### L 502.0250, L500.4100, L500.4050, L100.0100, L501.9910, L501.9985 #### [facility] [address] [place], [address] CO2 [Moles/Vol] 26.0 mmol/L Normal 21.0-32.0 [facility] Comment on above: Order Comment: Order Date: 09/22/24 Order Info: [id number] - CMP Order Info: [id number] - LIPID Order Info: [id number] - PSA Performed By: #### L 502.0250, L500.4100, L500.4050, L100.0100, L501.9910, L501.9985 #### [facility] [address] [place], [place], [id number] Creatinine [Mass/Vol] 1.20 mg/dL Normal 0.70-1.30 [facility] Comment on above: Order Comment: Order Date: 09/22/24 Order Info: [id number] - CMP Order Info: [id number] - LIPID Order Info: [id number] - PSA Result Comment: The validity of the calculated GFR GFRAA in patients over 70 years has not been determined. Clinical correlation is essential. Performed By: #### L 502.0250, L500.4100, L500.4050, L100.0100, L501.9910, L501.9985 #### [facility] [address] [place], [place], [id number] EST GFR - AA 82 mL/min Normal >60 [facility] Comment on above: Order Comment: Order Date: 09/22/24 Order Info: [id number]- - CMP Order Info: [id number] - LIPID Order Info: [id number] - PSA Result Comment: Afri can Libyan GFR Calc Performed By: #### L 502.0250, L500.4100, L500.4050, L100.0100, L501.9910, L501.9985 #### [facility] [address] [place], [place], [address] GAP 9 Normal 5-15 [facility] Comment on above: Order Comment: Order Date: 09/22/24 Order Info: 0786- - CMP Order Info: [id number] - LIPID Order Info: [id number] - PSA Performed By: #### L 502.0250, L500.4100, L500.4050, L100.0100, L501.9910, L501.9985 #### [facility] [address] [place], [place], [id number] (132) GFR/1.73 sq M.predicted among non-blacks MDRD (S/P/Bld) [Vol rate/Area] 68 mL/min/{1.73_m2} Normal >60 [facility] Comment on above: Order Comment: Order Date: 09/22/24 Order Info: 785- - CMP Order Info: - LIPID Order Info: [id number] - PSA Result Comment: Non- GFR Calc Performed By: #### L 502.0250, L500.4100, L500.4050, L100.0100, L501.9910, L501.9985 #### [facility] [address] [place], [address] Globulin (S) [Mass/Vol] 4.0 g/dL Normal 2.2-4.2 [facility] Comment on above: Order Comment: Order Date: 09/22/24 Order Info: [id number] - CMP Order Info: - LIPID Order Info: [id number] - PSA Performed By: #### L 502.0250, L500.4100, L500.4050, L100.0100, L501.9910, L501.9985 #### [facility] [address] [place], [address] Glucose [Mass/Vol] 165 mg/dL High 74-106 [facility] Comment on above: Order Comment: Order Date: 09/22/24 Order Info: [id number] - CMP Order Info: - LIPID Order Info: [id number] - PSA Result Comment: Fast ing Glucose result greater than or equal to 126 mg/dL suggests DIABETES MELLITUS per A.D.A. criteria. Performed By: #### L 502.0250, L500.4100, L500.4050, L100.0100, L501.9910, L501.9985 #### [facility] [address] [place], [address] Potassium [Moles/Vol] 3.5 mmol/L Normal 3.5-5.1 [facility] Comment on above: Order Comment: Order Date: 09/22/24 Order Info: [id number] - CMP Order Info: - LIPID Order Info: [id number] - PSA Performed By: #### L 502.0250, L500.4100, L500.4050, L100.0100, L501.9910, L501.9985 #### [facility] [address] [place], [address] Sodium [Moles/Vol] 136 mmol/L Normal 136-145 [facility] Comment on above: Order Comment: Order Date: 09/22/24 Order Info: [id number] - CMP Order Info: [id number] - LIPID Order Info: [id number] - PSA Performed By: #### L 502.0250, L500.4100, L500.4050, L100.0100, L501.9910, L501.9985 #### [facility] [address] [place], [address] T PROT 8.0 g/dL Normal 6.4-8.2 [facility] Comment on above: Order Comment: Order Date: 09/22/24 Order Info: 0786- - CMP Order Info: [id number] - LIPID Order Info: [id number] - PSA Performed By: #### L 502.0250, L500.4100, L500.4050, L100.0100, L501.9910, L501.9985 #### [facility] [address] [place], [address] Urea nitrogen [Mass/Vol] 21 mg/dL High 7-18 [facility] Comment on above: Order Comment: Order Date: 09/22/24 Order Info: [id number] - CMP Order Info: [id number] - LIPID Order Info: [id number] - PSA Performed By: #### L 502.0250, L500.4100, L500.4050, L100.0100, L501.9910, L501.9985 #### [facility] [address] [place], [address] Hemoglobin A1con 09-22-2024 HbA1c (Bld) [Mass fraction] 8.2 % High 3.8-5.6 [facility] Comment on above: Order Comment: Order Date: 09/22/24 Order Info: [id number] - A1C Result Comment: Norm al < 5.7 % Prediabetic 5.7 - 6.4 % Diabetic >or= 6.5 % Please note range changes. Performed By: #### L 502.0250, L500.4100, L500.4050, L100.0100, L501.9910, L501.9985 #### [facility] [address] [place], [address] Lipid Profileon 09-22-2024 Cholesterol [Mass/Vol] 168 mg/dL Normal 200 [facility] Comment on above: Order Comment: Order Date: 09/22/24 Order Info: [id number] - CMP Order Info: [id number] - LIPID Order Info: [id number] - PSA Result Comment: <200 mg/dL Desirable 200-240 mg/dL Borderline >240 mg/dL High Risk Performed By: #### L 502.0250, L500.4100, L500.4050, L100.0100, L501.9910, L501.9985 #### [facility] [address] [place], [address] Cholesterol in HDL [Mass/Vol] 38 mg/dL Low [facility] Comment on above: Order Comment: Order Date: 09/22/24 Order Info: [id number] - CMP Order Info: [id number] - LIPID Order Info: [id number] - PSA Result Comment: The drugs N-Acetylcysteine and Metamizole may falsely depress this assay. Reference Range HDL <40 mg/dL Low HDL Cholesterol HDL >or= 60 mg/dL High HDL Cholesterol Performed By: #### L 502.0250, L500.4100, L500.4050, L100.0100, L501.9910, L501.9985 #### [facility] [address] [place], [address] Cholesterol in LDL [Mass/Vol] 81 mg/dL Normal 0-130 [facility] Comment on above: Order Comment: Order Date: 09/22/24 Order Info: 0786 - CMP Order Info: [id number] - LIPID Order Info: [id number] - PSA Performed By: #### L 502.0250, L500.4100, L500.4050, L100.0100, L501.9910, L501.9985 #### [facility] [address] [place], [place], [id number] Cholesterol in VLDL [Mass/Vol] 49 mg/dL High 5-40 [facility] Comment on above: Order Comment: Order Date: 09/22/24 Order Info: 0786 - CMP Order Info: [id number] - LIPID Order Info: [id number] - PSA Performed By: #### L 502.0250, L500.4100, L500.4050, L100.0100, L501.9910, L501.9985 #### [facility] [address] [place], [address] Triglyceride [Mass/Vol] 246 mg/dL High [facility] Comment on above: Order Comment: Order Date: 09/22/24 Order Info: [id number] - CMP Order Info: [id number] - LIPID Order Info: [id number] - PSA Result Comment: The drugs N-Acetylcysteine and Metamizole may falsely depress this assay. Serum Triglycerides Reference Interval Normal <150 mg/dL Borderline high 150 - 199 mg/dL High 200 - 499 mg/dL Very High > or = 500 mg/dL Performed By: #### L 502.0250, L500.4100, L500.4050, L100.0100, L501.9910, L501.9985 #### [facility] [address] [place], [address] Microalb:Creat Ratio,Random URon 09-22-2024 MALB:CRE Normal <30 mg/g CRE [facility] Comment on above: Order Comment: Order Date: 09/22/24 Order Info: [id number] - MIACRE Result Comment: UTO Performed By: #### L 502.0250, L500.4100, L500.4050, L100.0100, L501.9910, L501.9985 #### [facility] [address] [place], [address] MICROALBUMIN,UR Normal NO RANGE EST. [facility] Comment on above: Order Comment: Order Date: 09/22/24 Order Info: [id number] - MIACRE Result Comment: UTO Performed By: #### L 502.0250, L500.4100, L500.4050, L100.0100, L501.9910, L501.9985 #### [facility] [address] [place], [address] UR CREAT Normal NO RANGE EST. [facility] Comment on above: Order Comment: Order Date: 09/22/24 Order Info: [id number] - MIACRE Result Comment: UTO Performed By: #### L 502.0250, L500.4100, L500.4050, L100.0100, L501.9910, L501.9985 #### [facility] [address] [place], [address] PSA,Total - Annual Screenon 09-22-2024 PSA,TOT SCREEN 0.44 ng/mL Normal 0.00-4.00 [facility] Comment on above: Order Comment: Order Date: 09/22/24 Order Info: 0786-1 - CMP Order Info: [id number] - LIPID Order Info: [id number] - PSA Result Comment: This test was performed using the TPSA assay method for the Gecko chemistry system. Values obtained with different assay methods cannot be used interchangably. When changing PSA assays in the course of monitoring a patient, additional sequential testing should be carried out to confirm baseline values. Performed By: #### L 502.0250, L500.4100, L500.4050, L100.0100, L501.9910, L501.9985 #### [facility] [address] [place], [address] CBC W/Diff, Automatedon 11-0 8-2024 Absolute Lymph 2.02 X10 3/uL Normal 0.83-4.51 [facility] Comment on above: Order Comment: Order Date: 01/22/24 Order Info: 0786-1 - CMP Order Info: [id number] - LIPID Performed By: #### L 500.4100, [id number] #### [facility] [address] [place], [address] Absolute Neut 4.3 X10 3/uL Normal 2.0-7.7 [facility] Comment on above: Order Comment: Order Date: 01/22/24 Order Info: 07-1 - CMP Order Info: [id number] - LIPID Performed By: #### L 500.4100, [id number] #### [facility] [address] [place], [address] Basophils/100 WBC (Bld) 0.4 % Normal 0-1 [facility] Comment on above: Order Comment: Order Date: 01/22/24 Order Info: 0786-1 - CMP Order Info: [id number] - LIPID Performed By: #### L 500.4100, [id number] #### [facility] [address] [place], [address] Eosinophils/100 WBC (Bld) 3.8 % Normal 0-5 [facility] Comment on above: Order Comment: Order Date: 01/22/24 Order Info: 0786-1 - CMP Order Info: [id number] - LIPID Performed By: #### L 500.4100, [id number] #### [facility] [address] [place], [address] Erythrocyte distribution width (RBC) [Ratio] 12.8 % Normal 11.6-14.6 [facility] Comment on above: Order Comment: Order Date: 01/22/24 Order Info: 0786-1 - CMP Order Info: [id number] - LIPID Performed By: #### L 500.4100, [id number] #### [facility] [address] [place], [address] Hematocrit (Bld) [Volume fraction] 45.3 % Normal 40-54 [facility] Comment on above: Order Comment: Order Date: 01/22/24 Order Info: 0786-1 - CMP Order Info: [id number] - LIPID Performed By: #### L 500.4100, [id number] #### [facility] [address] [place], [address] Hemoglobin (Bld) [Mass/Vol] 14.8 g/dL Normal 13.0-16. 5 [facility] Comment on above: Order Comment: Order Date: 01/22/24 Order Info: 07 - CMP Order Info: [id number] - LIPID Performed By: #### L 500.4100, [id number] #### [facility] [address] [place], [address] IG% 0.400 Normal 0.0-0.9 [facility] Comment on above: Order Comment: Order Date: 01/22/24 Order Info: 07 - CMP Order Info: [id number] - LIPID Result Comment: IG% - Immature Granulocytes (promyelocytes, myelocytes and metamyelocytes) > 1% indicates that a LEFT SHIFT is Present. Performed By: #### L 500.4100, [id number] #### [facility] [address] [place], [address] Lymphocytes/100 WBC (Bld) 27.7 % Normal 19-41 [facility] Comment on above: Order Comment: Order Date: 01/22/24 Order Info: 0786- - CMP Order Info: [id number] - LIPID Performed By: #### L 500.4100, [id number] #### [facility] [address] [place], [address] MCH (RBC) [Entitic mass] 29.6 pg Normal 27.0-32.0 [facility] Comment on above: Order Comment: Order Date: 01/22/24 Order Info: 0786 - CMP Order Info: [id number] - LIPID Performed By: #### L 500.4100, [id number] #### [facility] [address] [place], [address] MCHC (RBC) [Mass/Vol] 32.7 g/dL Normal 32-36 [facility] Comment on above: Order Comment: Order Date: 01/22/24 Order Info: 785- - CMP Order Info: - LIPID Performed By: #### L 500.4100, [id number] #### [facility] [address] [place], [address] MCV (RBC) [Entitic vol] 90.6 fL Normal 80-94 [facility] Comment on above: Order Comment: Order Date: 01/22/24 Order Info: 0786 - CMP Order Info: [id number] - LIPID Performed By: #### L 500.4100, [id number] #### [facility] [address] [place], [address] Monocytes/100 WBC (Bld) 8.2 % Normal 0-10 [facility] Comment on above: Order Comment: Order Date: 01/22/24 Order Info: 0786- - CMP Order Info: [id number] - LIPID Performed By: #### L 500.4100, [id number] #### [facility] [address] [place], [address] Neutrophils/100 WBC (Bld) 59.5 % Normal 47-70 [facility] Comment on above: Order Comment: Order Date: 01/22/24 Order Info: 0786-1 - CMP Order Info: [id number] - LIPID Performed By: #### L 500.4100, [id number] #### [facility] [address] [place], [address] Nucleated RBC (Bld) [#/Vol] 0 10*3/uL Normal 0-5 [facility] Comment on above: Order Comment: Order Date: 01/22/24 Order Info: 0786-1 - CMP Order Info: [id number] - LIPID Performed By: #### L 500.4100, [id number] #### [facility] [address] [place], [address] Platelet mean volume (Bld) [Entitic vol] 10.7 fL Normal 6.2-12.0 [facility] Comment on above: Order Comment: Order Date: 01/22/24 Order Info: 07- - CMP Order Info: [id number] - LIPID Performed By: #### L 500.4100, [id number] #### [facility] [address] [place], [address] Platelets (Bld) [#/Vol] 218 10*3/uL Normal 150-450 [facility] Comment on above: Order Comment: Order Date: 01/22/24 Order Info: 0786- - CMP Order Info: [id number] - LIPID Performed By: #### L 500.4100, [id number] #### [facility] [address] [place], [address] RBC (Bld) [#/Vol] 5.00 10*6/uL Normal 4.6-6.2 [facility] Comment on above: Order Comment: Order Date: 01/22/24 Order Info: 0786-1 - CMP Order Info: [id number] - LIPID Performed By: #### L 500.4100, [id number] #### [facility] [address] [place], [address] RDW SD 42.2 fl Normal 35.1-43.9 [facility] Comment on above: Order Comment: Order Date: 01/22/24 Order Info: 0786-1 - CMP Order Info: [id number] - LIPID Performed By: #### L 500.4100, [id number] #### [facility] [address] [place], [address] WBC (Bld) [#/Vol] 7.3 10*3/uL Normal 4.4-11.0 [facility] Comment on above: Order Comment: Order Date: 01/22/24 Order Info: 0786-1 - CMP Order Info: [id number] - LIPID Performed By: #### L 500.4100, [id number] #### [facility] [address] [place], [address] Comprehensive Metabolic Prof ilon 07-03-2024 Albumin [Mass/Vol] 3.9 g/dL Normal 3.2-5.0 [facility] Comment on above: Order Comment: Order Date: 01/22/24 Order Info: 0786-1 - CMP Order Info: [id number] - LIPID Performed By: #### L 500.4100, [id number] #### [facility] [address] [place], [address] Albumin/Globulin [Mass ratio] 1.0 {ratio} Normal 0.9-2.4 [facility] Comment on above: Order Comment: Order Date: 01/22/24 Order Info: 0786-1 - CMP Order Info: [id number] - LIPID Performed By: #### L 500.4100, [id number] #### [facility] [address] [place], [address] ALK P 126 U/L High 45-117 [facility] Comment on above: Order Comment: Order Date: 01/22/24 Order Info: 0786-1 - CMP Order Info: [id number] - LIPID Performed By: #### L 500.4100, [id number] #### [facility] [address] [place], [address] ALT [Catalytic activity/Vol] 47 U/L Normal 16-61 [facility] Comment on above: Order Comment: Order Date: 01/22/24 Order Info: 0786-1 - CMP Order Info: [id number] - LIPID Performed By: #### L 500.4100, [id number] #### [facility] [address] [place], [address] AST [Catalytic activity/Vol] 26 U/L Normal 15-37 [facility] Comment on above: Order Comment: Order Date: 01/22/24 Order Info: 785- - CMP Order Info: - LIPID Performed By: #### L 500.4100, [id number] #### [facility] [address] [place], [address] Bilirubin [Mass/Vol] 0.90 mg/dL Normal 0.20-1.00 [facility] Comment on above: Order Comment: Order Date: 01/22/24 Order Info: 785-08 - CMP Order Info: [id number] - LIPID Result Comment: For patients on eltrombopag therapy, use of Dimension Eugene TBIL is not recommended. Performed By: #### L 500.4100, [id number] #### [facility] [address] [place], [address] BUN/CRE 14.4 RATIO Normal 10-20 [facility] Comment on above: Order Comment: Order Date: 01/22/24 Order Info: 785-08 - CMP Order Info: [id number] - LIPID Performed By: #### L 500.4100, [id number] #### [facility] [address] [place], [address] CA,Total 9.5 mg/dL Normal 8.5-10.1 [facility] Comment on above: Order Comment: Order Date: 01/22/24 Order Info: 785- - CMP Order Info: [id number] - LIPID Performed By: #### L 500.4100, [id number] #### [facility] [address] [place], [address] Chloride [Moles/Vol] 100 mmol/L Normal 98-107 [facility] Comment on above: Order Comment: Order Date: 01/22/24 Order Info: 0786 - CMP Order Info: [id number] - LIPID Performed By: #### L 500.4100, [id number] #### [facility] [address] [place], [address] CO2 [Moles/Vol] 30.0 mmol/L Normal 21.0-32.0 [facility] Comment on above: Order Comment: Order Date: 01/22/24 Order Info: 785-08 - CMP Order Info: [id number] - LIPID Performed By: #### L 500.4100, [id number] #### [facility] [address] [place], [address] Creatinine [Mass/Vol] 1.11 mg/dL Normal 0.70-1.30 [facility] Comment on above: Order Comment: Order Date: 01/22/24 Order Info: 785-08 - CMP Order Info: [id number] - LIPID Result Comment: The validity of the calculated GFR GFRAA in patients over 70 years has not been determined. Clinical correlation is essential. Performed By: #### L 500.4100, [id number] #### [facility] [address] [place], [address] EST GFR - AA 90 mL/min Normal >60 [facility] Comment on above: Order Comment: Order Date: 01/22/24 Order Info: 785-08 - CMP Order Info: [id number] - LIPID Result Comment: Afri can Libyan GFR Calc Performed By: #### L 500.4100, [id number] #### [facility] [address] [place], [address] GAP 6 Normal 5-15 [facility] Comment on above: Order Comment: Order Date: 01/22/24 Order Info: 071 - CMP Order Info: [id number] - LIPID Performed By: #### L 500.4100, [id number] #### [facility] [address] [place], [address] GFR/1.73 sq M.predicted among non-blacks MDRD (S/P/Bld) [Vol rate/Area] 74 mL/min/{1.73_m2} Normal >60 [facility] Comment on above: Order Comment: Order Date: 01/22/24 Order Info: 0786-1 - CMP Order Info: [id number] - LIPID Result Comment: Non- GFR Calc Performed By: #### L 500.4100, [id number] #### [facility] [address] [place], [address] Globulin (S) [Mass/Vol] 3.9 g/dL Normal 2.2-4.2 [facility] Comment on above: Order Comment: Order Date: 01/22/24 Order Info: 0786-1 - CMP Order Info: [id number] - LIPID Performed By: #### L 500.4100, [id number] #### [facility] [address] [place], [address] Glucose [Mass/Vol] 232 mg/dL High 74-106 [facility] Comment on above: Order Comment: Order Date: 01/22/24 Order Info: 0786- - CMP Order Info: [id number] - LIPID Result Comment: Gluc ose result greater than or equal to 200 mg/dL suggests DIABETES MELLITUS per A.D.A. criteria. Performed By: #### L 500.4100, [id number] #### [facility] [address] [place], [address] Potassium [Moles/Vol] 3.8 mmol/L Normal 3.5-5.1 [facility] Comment on above: Order Comment: Order Date: 01/22/24 Order Info: 0786-1 - CMP Order Info: [id number] - LIPID Performed By: #### L 500.4100, [id number] #### [facility] [address] [place], [address] Sodium [Moles/Vol] 136 mmol/L Normal 136-145 [facility] Comment on above: Order Comment: Order Date: 01/22/24 Order Info: 0786-1 - CMP Order Info: [id number] - LIPID Performed By: #### L 500.4100, [id number] #### [facility] [address] [place], [address] T PROT 7.8 g/dL Normal 6.4-8.2 [facility] Comment on above: Order Comment: Order Date: 01/22/24 Order Info: 0786- - CMP Order Info: [id number] - LIPID Performed By: #### L 500.4100, [id number] #### [facility] [address] [place], [address] Urea nitrogen [Mass/Vol] 16 mg/dL Normal 7-18 [facility] Comment on above: Order Comment: Order Date: 01/22/24 Order Info: 0786- - CMP Order Info: [id number] - LIPID Performed By: #### L 500.4100, [id number] #### [facility] [address] [place], [address] Hemoglobin A1con 07-03-2024 HbA1c (Bld) [Mass fraction] 9.7 % High 3.8-5.6 [facility] Comment on above: Order Comment: Order Date: 01/22/24 Order Info: 0786-1 - CMP Order Info: [id number] - LIPID Result Comment: Norm al < 5.7 % Prediabetic 5.7 - 6.4 % Diabetic >or= 6.5 % Please note range changes. Performed By: #### L 500.4100, [id number] #### [facility] [address] [place], [address] Lipid Profileon 07-03-2024 Cholesterol [Mass/Vol] 148 mg/dL Normal 200 [facility] Comment on above: Order Comment: Order Date: 01/22/24 Order Info: 785-08 - CMP Order Info: [id number] - LIPID Result Comment: <200 mg/dL Desirable 200-240 mg/dL Borderline >240 mg/dL High Risk Performed By: #### L 500.4100, [id number] #### [facility] [address] [place], [address] Cholesterol in HDL [Mass/Vol] 37 mg/dL Low [facility] Comment on above: Order Comment: Order Date: 01/22/24 Order Info: 785-08 - CMP Order Info: [id number] - LIPID Result Comment: The drugs N-Acetylcysteine and Metamizole may falsely depress this assay. Reference Range HDL <40 mg/dL Low HDL Cholesterol HDL >or= 60 mg/dL High HDL Cholesterol Performed By: #### L 500.4100, [id number] #### [facility] [address] [place], [address] Cholesterol in LDL [Mass/Vol] 77 mg/dL Normal 0-130 [facility] Comment on above: Order Comment: Order Date: 01/22/24 Order Info: 07 - CMP Order Info: [id number] - LIPID Performed By: #### L 500.4100, [id number] #### [facility] [address] [place], [address] Cholesterol in VLDL [Mass/Vol] 34 mg/dL Normal 5-40 [facility] Comment on above: Order Comment: Order Date: 01/22/24 Order Info: 07 - CMP Order Info: [id number] - LIPID Performed By: #### L 500.4100, [id number] #### [facility] [address] [place], [address] Triglyceride [Mass/Vol] 172 mg/dL Normal [facility] Comment on above: Order Comment: Order Date: 01/22/24 Order Info: 07 - CMP Order Info: [id number] - LIPID Result Comment: The drugs N-Acetylcysteine and Metamizole may falsely depress this assay. Serum Triglycerides Reference Interval Normal <150 mg/dL Borderline high 150 - 199 mg/dL High 200 - 499 mg/dL Very High > or = 500 mg/dL Performed By: #### L 500.4100, [id number] #### [facility] [address] [place], [address] Vitamin D,25 Hydroxyon 07-03 Vitamin D 25-OH 16.6 ng/mL Normal [facility] Comment on above: Order Comment: Order Date: 01/22/24 Order Info: 0786-1 - CMP Order Info: [id number] - LIPID Result Comment: Alfreda min D 25(OH) Status Range Deficiency <20 ng/mL (50nmol/L) Insufficiency 20 - 30 ng/mL (50 - 75 nmol/L) Sufficiency 30 - 100 ng/mL (75 - 250 nmol/L) Toxicity >100 ng/mL (>250 nmol/L) Performed By: #### L 500.4100, [id number] #### [facility] [address] [place], [address] CBC W/Diff, Automatedon 12-25 Absolute Lymph 1.80 X10 3/uL Normal 0.83-4.51 [facility] Comment on above: Order Comment: Order Date: 01/22/24 Order Info: 0184-1 - CBCD Performed By: #### L 100.0100, [id number], L500.4050 #### [facility] [address] [place], [address] Absolute Neut 4.5 X10 3/uL Normal 2.0-7.7 [facility] Comment on above: Order Comment: Order Date: 01/22/24 Order Info: 0184-1 - CBCD Performed By: #### L 100.0100, [id number], L500.4050 #### [facility] [address] [place], [address] Basophils/100 WBC (Bld) 0.6 % Normal 0-1 [facility] Comment on above: Order Comment: Order Date: 01/22/24 Order Info: 0184-1 - CBCD Performed By: #### L 100.0100, [id number], L500.4050 #### [facility] [address] [place], [address] Eosinophils/100 WBC (Bld) 4.4 % Normal 0-5 [facility] Comment on above: Order Comment: Order Date: 01/22/24 Order Info: 0184-1 - CBCD Performed By: #### L 100.0100, [id number], L500.4050 #### [facility] [address] [place], [address] Erythrocyte distribution width (RBC) [Ratio] 13.5 % Normal 11.6-14.6 [facility] Comment on above: Order Comment: Order Date: 01/22/24 Order Info: 0184-1 - CBCD Performed By: #### L 100.0100, [id number], L500.4050 #### [facility] [address] [place], [address] Hematocrit (Bld) [Volume fraction] 41.7 % Normal 40-54 [facility] Comment on above: Order Comment: Order Date: 01/22/24 Order Info: 0184-1 - CBCD Performed By: #### L 100.0100, [id number], L500.4050 #### [facility] [address] [place], [address] Hemoglobin (Bld) [Mass/Vol] 13.4 g/dL Normal 13.0-16. 5 [facility] Comment on above: Order Comment: Order Date: 01/22/24 Order Info: 0184-1 - CBCD Performed By: #### L 100.0100, [id number], L500.4050 #### [facility] [address] [place], [address] IG% 0.300 Normal 0.0-0.9 [facility] Comment on above: Order Comment: Order Date: 01/22/24 Order Info: 0184- - CBCD Result Comment: IG% - Immature Granulocytes (promyelocytes, myelocytes and metamyelocytes) > 1% indicates that a LEFT SHIFT is Present. Performed By: #### L 100.0100, [id number], L500.4050 #### [facility] [address] [place], [address] Lymphocytes/100 WBC (Bld) 25.0 % Normal 19-41 [facility] Comment on above: Order Comment: Order Date: 01/22/24 Order Info: 018- - CBCD Performed By: #### L 100.0100, [id number], L500.4050 #### [facility] [address] [place], [address] MCH (RBC) [Entitic mass] 29.3 pg Normal 27.0-32.0 [facility] Comment on above: Order Comment: Order Date: 01/22/24 Order Info: 018- - CBCD Performed By: #### L 100.0100, [id number], L500.4050 #### [facility] [address] [place], [place], [address] MCHC (RBC) [Mass/Vol] 32.1 g/dL Normal 32-36 [facility] Comment on above: Order Comment: Order Date: 01/22/24 Order Info: [id number]- - CBCD Performed By: #### L 100.0100, [id number], [id number] #### [facility] [address] [place], [address] MCV (RBC) [Entitic vol] 91.2 fL Normal 80-94 [facility] Comment on above: Order Comment: Order Date: 01/22/24 Order Info: [id number] - CBCD Performed By: #### L 100.0100, [id number], [id number] #### [facility] [address] [place], [address] Monocytes/100 WBC (Bld) 6.8 % Normal 0-10 [facility] Comment on above: Order Comment: Order Date: 01/22/24 Order Info: [id number] - CBCD Performed By: #### L 100.0100, [id number], [id number] #### [facility] [address] [place], [address] Neutrophils/100 WBC (Bld) 62.9 % Normal 47-70 [facility] Comment on above: Order Comment: Order Date: 01/22/24 Order Info: [id number] - CBCD Performed By: #### L 100.0100, [id number], [id number] #### [facility] [address] [place], [address] Nucleated RBC (Bld) [#/Vol] 0 10*3/uL Normal 0-5 [facility] Comment on above: Order Comment: Order Date: 01/22/24 Order Info: [id number] - CBCD Performed By: #### L 100.0100, [id number], [id number] #### [facility] [address] [place], [address] Platelet mean volume (Bld) [Entitic vol] 10.7 fL Normal 6.2-12.0 [facility] Comment on above: Order Comment: Order Date: 01/22/24 Order Info: [id number] - CBCD Performed By: #### L 100.0100, [id number], [id number] #### [facility] [address] [place], [address] Platelets (Bld) [#/Vol] 211 10*3/uL Normal 150-450 [facility] Comment on above: Order Comment: Order Date: 01/22/24 Order Info: [id number] - CBCD Performed By: #### L 100.0100, [id number], [id number] #### [facility] [address] [place], [address] RBC (Bld) [#/Vol] 4.57 10*6/uL Low 4.6-6.2 [facility] Comment on above: Order Comment: Order Date: 01/22/24 Order Info: [id number] - CBCD Performed By: #### L 100.0100, [id number], [id number] #### [facility] [address] [place], [address] RDW SD 45.0 fl High 35.1-43.9 [facility] Comment on above: Order Comment: Order Date: 01/22/24 Order Info: [id number]- - CBCD Performed By: #### L 100.0100, [id number], [id number] #### [facility] [address] [place], [address] WBC (Bld) [#/Vol] 7.2 10*3/uL Normal 4.4-11.0 [facility] Comment on above: Order Comment: Order Date: 01/22/24 Order Info: [id number]- - CBCD Performed By: #### L 100.0100, [id number], [id number] #### [facility] [address] [place], [address] Comprehensive Metabolic Prof [facility] 01-22-2024 Albumin [Mass/Vol] 3.5 g/dL Normal 3.2-5.0 [facility] Comment on above: Order Comment: Order Date: 01/22/24 Order Info: [id number] - CMP Order Info: [id number] - LIPID Performed By: #### L 500.4100, [id number] #### [facility] [address] [place], [address] Albumin/Globulin [Mass ratio] 0.9 {ratio} Normal 0.9-2.4 [facility] Comment on above: Order Comment: Order Date: 01/22/24 Order Info: [id number] - CMP Order Info: [id number] - LIPID Performed By: #### L 500.4100, [id number] #### [facility] [address] [place], [address] ALK P 92 U/L Normal 45-117 [facility] Comment on above: Order Comment: Order Date: 01/22/24 Order Info: 07-1 - CMP Order Info: [id number] - LIPID Performed By: #### L 500.4100, [id number] #### [facility] [address] [place], [address] ALT [Catalytic activity/Vol] 45 U/L Normal 16-61 [facility] Comment on above: Order Comment: Order Date: 01/22/24 Order Info: 0786- - CMP Order Info: [id number] - LIPID Performed By: #### L 500.4100, [id number] #### [facility] [address] [place], [address] AST [Catalytic activity/Vol] 33 U/L Normal 15-37 [facility] Comment on above: Order Comment: Order Date: 01/22/24 Order Info: 0786- - CMP Order Info: [id number] - LIPID Performed By: #### L 500.4100, [id number] #### [facility] [address] [place], [address] Bilirubin [Mass/Vol] 0.60 mg/dL Normal 0.20-1.00 [facility] Comment on above: Order Comment: Order Date: 01/22/24 Order Info: [id number] - CMP Order Info: [id number] - LIPID Result Comment: For patients on eltrombopag therapy, use of Dimension Eugene TBIL is not recommended. Performed By: #### L 500.4100, [id number] #### [facility] [address] [place], [address] BUN/CRE 14.4 RATIO Normal 10-20 [facility] Comment on above: Order Comment: Order Date: 01/22/24 Order Info: 07-1 - CMP Order Info: [id number] - LIPID Performed By: #### L 500.4100, [id number] #### [facility] [address] [place], [address] CA,Total 9.1 mg/dL Normal 8.5-10.1 [facility] Comment on above: Order Comment: Order Date: 01/22/24 Order Info: 785- - CMP Order Info: [id number] - LIPID Performed By: #### L 500.4100, [id number] #### [facility] [address] [place], [address] Chloride [Moles/Vol] 105 mmol/L Normal 98-107 [facility] Comment on above: Order Comment: Order Date: 01/22/24 Order Info: 07 - CMP Order Info: [id number] - LIPID Performed By: #### L 500.4100, [id number] #### [facility] [address] [place], [address] CO2 [Moles/Vol] 25.0 mmol/L Normal 21.0-32.0 [facility] Comment on above: Order Comment: Order Date: 01/22/24 Order Info: 0786- - CMP Order Info: [id number] - LIPID Performed By: #### L 500.4100, [id number] #### [facility] [address] [place], [address] Creatinine [Mass/Vol] 1.18 mg/dL Normal 0.70-1.30 [facility] Comment on above: Order Comment: Order Date: 01/22/24 Order Info: 07-1 - CMP Order Info: [id number] - LIPID Result Comment: The validity of the calculated GFR GFRAA in patients over 70 years has not been determined. Clinical correlation is essential. Performed By: #### L 500.4100, [id number] #### [facility] [address] [place], [address] EST GFR - AA 84 mL/min Normal >60 [facility] Comment on above: Order Comment: Order Date: 01/22/24 Order Info: [id number] - CMP Order Info: - LIPID Result Comment: Afri can Libyan GFR Calc Performed By: #### L 500.4100, [id number] #### [facility] [address] [place], [address] GAP 7 Normal 5-15 [facility] Comment on above: Order Comment: Order Date: 01/22/24 Order Info: [id number] - CMP Order Info: - LIPID Performed By: #### L 500.4100, [id number] #### [facility] [address] [place], [address] GFR/1.73 sq M.predicted among non-blacks MDRD (S/P/Bld) [Vol rate/Area] 69 mL/min/{1.73_m2} Normal >60 [facility] Comment on above: Order Comment: Order Date: 01/22/24 Order Info: [id number] - CMP Order Info: [id number] - LIPID Result Comment: Non- GFR Calc Performed By: #### L 500.4100, [id number] #### [facility] [address] [place], [address] Globulin (S) [Mass/Vol] 3.8 g/dL Normal 2.2-4.2 [facility] Comment on above: Order Comment: Order Date: 01/22/24 Order Info: [id number] - CMP Order Info: [id number] - LIPID Performed By: #### L 500.4100, [id number] #### [facility] [address] [place], [address] Glucose [Mass/Vol] 239 mg/dL High 74-106 [facility] Comment on above: Order Comment: Order Date: 01/22/24 Order Info: 0786- - CMP Order Info: [id number] - LIPID Result Comment: Gluc ose result greater than or equal to 200 mg/dL suggests DIABETES MELLITUS per A.D.A. criteria. Performed By: #### L 500.4100, [id number] #### [facility] [address] [place], [address] Potassium [Moles/Vol] 4.0 mmol/L Normal 3.5-5.1 [facility] Comment on above: Order Comment: Order Date: 01/22/24 Order Info: 0786- - CMP Order Info: [id number] - LIPID Performed By: #### L 500.4100, [id number] #### [facility] [address] [place], [address] Sodium [Moles/Vol] 137 mmol/L Normal 136-145 [facility] Comment on above: Order Comment: Order Date: 01/22/24 Order Info: 0786- - CMP Order Info: [id number] - LIPID Performed By: #### L 500.4100, [id number] #### [facility] [address] [place] [place], [address] T PROT 7.3 g/dL Normal 6.4-8.2 [facility] Comment on above: Order Comment: Order Date: 01/22/24 Order Info: 0786-1 - CMP Order Info: [id number] - LIPID Performed By: #### L 500.4100, [id number] #### [facility] [address] [place], [address] Urea nitrogen [Mass/Vol] 17 mg/dL Normal 7-18 [facility] Comment on above: Order Comment: Order Date: 01/22/24 Order Info: 0786-1 - CMP Order Info: [id number] - LIPID Performed By: #### L 500.4100, [id number] #### [facility] [address] [place], [address] Hemoglobin A1con 01-22-2024 HbA1c (Bld) [Mass fraction] 7.7 % High 3.8-5.6 [facility] Comment on above: Order Comment: Order Date: 01/22/24 Order Info: [id number] - A1C Result Comment: Norm al < 5.7 % Prediabetic 5.7 - 6.4 % Diabetic >or= 6.5 % Please note range changes. Performed By: #### L 100.0100, [id number], [id number] #### [facility] [address] [place], [address] Lipid Profileon 01-22-2024 Cholesterol [Mass/Vol] 145 mg/dL Normal 200 [facility] Comment on above: Order Comment: Order Date: 01/22/24 Order Info: 0786-1 - CMP Order Info: [id number] - LIPID Result Comment: <200 mg/dL Desirable 200-240 mg/dL Borderline >240 mg/dL High Risk Performed By: #### L 500.4100, [id number] #### [facility] [address] [place], [address] Cholesterol in HDL [Mass/Vol] 30 mg/dL Low [facility] Comment on above: Order Comment: Order Date: 01/22/24 Order Info: [id number] - CMP Order Info: [id number] - LIPID Result Comment: The drugs N-Acetylcysteine and Metamizole may falsely depress this assay. Reference Range HDL <40 mg/dL Low HDL Cholesterol HDL >or= 60 mg/dL High HDL Cholesterol Performed By: #### L 500.4100, [id number] #### [facility] [address] [place], [address] Cholesterol in LDL [Mass/Vol] 72 mg/dL Normal 0-130 [facility] Comment on above: Order Comment: Order Date: 01/22/24 Order Info: [id number] - CMP Order Info: [id number] - LIPID Performed By: #### L 500.4100, [id number] #### [facility] [address] [place], [address] Cholesterol in VLDL [Mass/Vol] 43 mg/dL High 5-40 [facility] Comment on above: Order Comment: Order Date: 01/22/24 Order Info: 0786-1 - [facility] Order Info: [id number] - LIPID Performed By: #### L 500.4100, [id number] #### [facility] [address] [place], [address] Triglyceride [Mass/Vol] 216 mg/dL High [facility] Comment on above: Order Comment: Order Date: 01/22/24 Order Info: [id number]- - CMP Order Info: [id number] - LIPID Result Comment: The drugs N-Acetylcysteine and Metamizole may falsely depress this assay. Serum Triglycerides Reference Interval Normal <150 mg/dL Borderline high 150 - 199 mg/dL High 200 - 499 mg/dL Very High > or = 500 mg/dL Performed By: #### L 500.4100, [id number] #### [facility] [address] [place], [address] Vitamin D,25 Hydroxyon 01-21 Vitamin D 25-OH 24.5 ng/mL Normal [facility] Comment on above: Order Comment: Order Date: 01/22/24 Order Info: [id number] - VITD25 Result Comment: Alfreda min D 25(OH) Status Range Deficiency <20 ng/mL (50nmol/L) Insufficiency 20 - 30 ng/mL (50 - 75 nmol/L) Sufficiency 30 - 100 ng/mL (75 - 250 nmol/L) Toxicity >100 ng/mL (>250 nmol/L) Performed By: #### L 500.4100, [id number] #### [facility] [address] [place], [address] Absolute lymphocyte countOrd ered By: Marcia Campbell on 09-10-2023 Lymphocytes Auto (Unsp spec) [#/Vol] 1.90 10*3/uL 0.83-4.51 [facility] Automated lymphocyte count a s percentage of total leukocytesOrdered By: Marcia Campbell on 09-10-2023 Lymphocytes/100 WBC Auto (Unsp spec) 26.6 % 19-41 [facility] Basophil percentageOrdered B y: Marcia Campbell on 09-10-2023 Basophil percentage 0-5 SEEN /hpf 0-5 [facility] Basophils/100 WBC (Bld) 0.4 % 0-1 [facility] Bilirubin [Mass/Vol] 0.60 mg/dL 0.20-1.00 [facility] Comment on above: For patients on eltr ombopag therapy, use of Dimension Eugene TBIL is not recommended. Chloride [Moles/Vol] 104 mmol/L 98-107 [facility] Cholesterol [Mass/Vol] 95 mg/dL <200 [facility] Comment on above: <200 mg/dL Desirable 200-240 mg/dL Borderline >240 mg/dL High Risk Eosinophils/100 WBC (Bld) 2.7 % 0-5 [facility] Glucose [Mass/Vol] 157 mg/dL 74-106 [facility] Comment on above: Fasting Glucose resu lt greater than or equal to 126 mg/dL suggests DIABETES MELLITUS per A.D.A. criteria. Hemoglobin (Bld) [Mass/Vol] 13.8 g/dL 13.0-16. 5 [facility] Monocytes/100 WBC (Bld) 12.6 % 0-10 [facility] Neutrophils (Bld) [#/Vol] 4.1 10*3/uL 2.0-7.7 [facility] Neutrophils/100 WBC (Bld) 57.3 % 47-70 [facility] Potassium [Moles/Vol] 3.3 mmol/L 3.5-5.1 [facility] Protein [Mass/Vol] 7.7 g/dL 6.4-8.2 [facility] Sodium [Moles/Vol] 138 mmol/L 136-145 [facility] Triglyceride [Mass/Vol] 109 mg/dL <199 [facility] Comment on above: The drugs N-Acetylcy steine and Metamizole may falsely depress this assay.Serum Triglycerides Reference Interval Normal <150 mg/dL Borderline high 150 - 199 mg/dL High 200 - 499 mg/dL Very High > or = 500 mg/dL WBC (Bld) [#/Vol] 7.2 10*3/uL 4.4-11.0 [facility] Bilirubin Test strip Ql (U)O rdered By: Marcia Campbell on 09-10-2023 Bilirubin Ql (U) 1 mg/dL Negative [facility] Comment on above: COLOR OF URINE MAY A FFECT DIPSTICK RESULTS. Determination of erythrocyte mean corpuscular volume (MCV)Ordered By: Marcia Campbell on 09-10-2023 MCV (RBC) [Entitic vol] 90.1 fL 80-94 [facility] Erythrocyte distribution wid th ratioOrdered By: Marcia Campbell on 09-10-2023 Erythrocyte distribution width (RBC) [Ratio] 13.5 % 11.6-14.6 [facility] Erythrocyte distribution wid th standard deviationOrdered By: Marcia Campbell on 09-10-2023 Erythrocyte distribution width (RBC) [Entitic vol] 44.6 fL 35.1-43.9 [facility] Hematocrit Auto (Bld) [Volum e fraction]Ordered By: Marcia Campbell on 09-10-2023 Hematocrit (Bld) [Volume fraction] 41.9 % 40-54 [facility] High density lipoprotein (HD L) measurementOrdered By: Marcia Campbell on 09-10-2023 Cholesterol in HDL (Body fld) [Mass/Vol] 31 mg/dL >40 [facility] Comment on above: The drugs N-Acetylcy steine and Metamizole may falsely depress this assay. Reference Range HDL <40 mg/dL Low HDL Cholesterol HDL >or= 60 mg/dL High HDL Cholesterol Immature granulocytes/100 WB C Auto (Bld)Ordered By: Marcia Campbell on 09-10-2023 Immature granulocytes/100 WBC (Bld) 0.400 % 0.0-0.9 [facility] Comment on above: IG% - Immature Granu locytes (promyelocytes, myelocytes and metamyelocytes) > 1% indicates that a LEFT SHIFT is Present. Ketones Test strip Ql (U)Ord ered By: Marcia Campbell on 09-10-2023 Ketones Ql (U) 5 mg/dl Negative [facility] - Chemistry and C hemistry - challengeOrdered By: Marcia Campbell on 09-10-2023 Albumin/Globulin [Mass ratio] 0.9 {ratio} 0.9-2.4 [facility] ALP [Catalytic activity/Vol] 119 U/L 45-117 [facility] ALT [Catalytic activity/Vol] 55 U/L 16-61 [facility] CO2 [Moles/Vol] 24.0 mmol/L 21.0-32.0 [facility] Globulin (S) [Mass/Vol] 4.1 g/dL 2.2-4.2 [facility] Urea nitrogen/Creatinine [Mass ratio] 16.1 mg/mg 10-20 [facility] - Hematology and Cell countsOrdered By: Marcia Campbell on 09-10-2023 MCH (RBC) [Entitic mass] 29.7 pg 27.0-32.0 [facility] MCHC (RBC) [Mass/Vol] 32.9 g/dL 32-36 [facility] Nucleated RBC/100 WBC (Bld) [Ratio] 0 % 0-5 [facility] Platelets (Bld) [#/Vol] 214 10*3/uL 150-450 [facility] Low density lipoprotein (LDL ) cholesterol measurementOrdered By: Marcia Campbell on 09-10-2023 Cholesterol in LDL (Body fld) [Moles/Vol] 42 mg/dL 0-130 [facility] Mucus LM Ql (Urine sed)Order ed By: Marcia Campbell on 09-10-2023 Mucus Ql (Urine sed) 0 SEEN /hpf [facility] Nitrite Test strip Ql (U)Ord ered By: Marcia Campbell on 09-10-2023 Nitrite Ql (U) Negative Negative [facility] No Panel InformationOrdered By: Marcia aCmpbell on 09-10-2023 Estimated GFR (MDRD) Amer 84 mL/min >60 [facility] Comment on above: GFR Calc Estimated GFR (MDRD) Non-Af Amer 69 mL/min >60 [facility] Comment on above: Non- GFR Calc Urine RBC 0-5 SEEN /hpf 0-5 [facility] Vitamin D 25-Hydroxy 35.6 ng/mL [facility] Comment on above: Vitamin D 25(OH) Sta tus Range Deficiency <20 ng/mL (50nmol/L) Insufficiency 20 - 30 ng/mL (50 - 75 nmol/L) Sufficiency 30 - 100 ng/mL (75 - 250 nmol/L) Toxicity >100 ng/mL (>250 nmol/L) Platelet mean volume Brandan-Ec ker (Bld) [Entitic vol]Ordered By: Marcia Campbell on 09-10-2023 Platelet mean volume (Bld) [Entitic vol] 9.9 fL 6.2-12.0 [facility] Protein Test strip Ql (U)Ord ered By: Marcia Campbell on 09-10-2023 Protein Ql (U) 30 mg/dl Negative [facility] RBC Auto (Bld) [#/Vol]Ordere d By: Marcia Campbell on 09-10-2023 RBC (Bld) [#/Vol] 4.65 10*6/uL 4.6-6.2 [facility] Serum or plasma calcium aleshia urement (mass/volume)Ordered By: Marcia Campbell on 09-10-2023 Calcium [Mass/Vol] 9.0 mg/dL 8.5-10.1 [facility] Serum or plasma creatinine m easurement (mass/volume)Ordered By: Marcia Campbell on 09-10-2023 Creatinine [Mass/Vol] 1.18 mg/dL 0.70-1.30 [facility] Comment on above: The validity of the calculated GFR & GFRAA in patients over 70 years has not been determined. Clinical correlation is essential. Serum or plasma urea nitroge n measurement (mass/volume)Ordered By: Marcia Campbell on 09-10-2023 Urea nitrogen [Mass/Vol] 19 mg/dL 7-18 [facility] Squamous epithelial cells de tection in urine sediment by light microscopyOrdered By: Marcia Campbell on 09-10-2023 Epithelial cells.squamous LM Ql (Urine sed) 0-5 SEEN /hpf 0-5 [facility] Thin prep Papanicolaou smear with manual screeningOrdered By: Marcia Campbell on 09-10-2023 Thin prep Papanicolaou smear with manual screening 3.6 g/dL 3.2-5.0 [facility] Thin prep Papanicolaou smear with manual screening 37 U/L 15-37 [facility] Thin prep Papanicolaou smear with manual screening 10 5-15 [facility] Thin prep Papanicolaou smear with manual screening 50.7 mg/L NO RANGE EST. [facility] Urine albumin/creatinine rat io for detection of microalbuminuriaOrdered By: Marcia Campbell on 09-10-2023 Albumin/Creatinine DL <= 1.0 mg/L (24H U) [Ratio] 21.0 mg/g CRE <30 [facility] Urine blood detectionOrdered By: Marcia Campbell on 09-10-2023 RBC Ql (U) 10 /ul Negative [facility] Urine clarityOrdered By: Karthik Campbell on 09-10-2023 Clarity (U) Clear Clear [facility] Urine color determinationOrd ered By: Marcia Campbell on 09-10-2023 Color (U) Yellow Yellow [facility] Urine creatinine measurement (mass/volume)Ordered By: Marcia Campbell on 09-10-2023 Creatinine (U) [Mass/Vol] 241.00 mg/dL NO RANGE EST. [facility] Urine glucose detectionOrder ed By: Marcia Campbell on 09-10-2023 Glucose Ql (U) Normal mg/dl Normal [facility] Urine leukocyte esterase det ection by dipstickOrdered By: Marcia Campbell on 09-10-2023 Leukocyte esterase Test strip Ql (U) 25 /ul Negative [facility] Urine pHOrdered By: Marcia florez on 09-10-2023 pH (U) 5.0 [pH] 5.0 - 8.0 [facility] Urine sediment bacteria coun t by microscopy (number/high power field)Ordered By: Marcia Campbell on 09-10-2023 Bacteria LM.HPF (Urine sed) [#/Area] 0 /[HPF] None Seen [facility] Urine specific gravity measu rementOrdered By: Marcia Campbell on 09-10-2023 Specific gravity (U) [Rel density] 1.020 1.002-1.030 [facility] Urine urobilinogen measureme ntOrdered By: Marcia Campbell on 09-10-2023 Urobilinogen Ql (U) 1 mg/dl Normal [facility] Very low density lipoprotein (VLDL) cholesterol measurementOrdered By: Marcia Campbell on 09-10-2023 Cholesterol in VLDL Calc [Moles/Vol] 22 mg/dL 5-40 [facility] Whole blood hemoglobin A1c/t otal hemoglobin ratio (mass fraction)Ordered By: Marcia Campbell on 09-10-2023 HbA1c (Bld) [Mass fraction] 7.5 % 3.8-5.6 [facility] Comment on above: Normal < 5.7 % Predi abetic 5.7 - 6.4 % Diabetic >or= 6.5 % Please note range changes. Absolute lymphocyte countOrd ered By: Marcia Campbell on 05-17-2023 Lymphocytes Auto (Unsp spec) [#/Vol] 2.27 10*3/uL 0.83-4.51 [facility] Basophil percentageOrdered B y: Marcia Campbell on 05-17-2023 Basophils/100 WBC (Bld) 0.3 % 0-1 [facility] Bilirubin [Mass/Vol] 0.40 mg/dL 0.20-1.00 [facility] Comment on above: For patients on eltr ombopag therapy, use of Dimension Eugene TBIL is not recommended. Chloride [Moles/Vol] 104 mmol/L 98-107 [facility] Cholesterol [Mass/Vol] 142 mg/dL <200 [facility] Comment on above: <200 mg/dL Desirable 200-240 mg/dL Borderline >240 mg/dL High Risk Eosinophils/100 WBC (Bld) 3.9 % 0-5 [facility] Glucose [Mass/Vol] 263 mg/dL 74-106 [facility] Comment on above: Glucose result great er than or equal to 200 mg/dLsuggests DIABETES MELLITUS per A.D.A. criteria. Neutrophils (Bld) [#/Vol] 5.7 10*3/uL 2.0-7.7 [facility] Neutrophils/100 WBC (Bld) 62.2 % 47-70 [facility] Potassium [Moles/Vol] 3.6 mmol/L 3.5-5.1 [facility] Protein [Mass/Vol] 7.5 g/dL 6.4-8.2 [facility] Sodium [Moles/Vol] 137 mmol/L 136-145 [facility] Triglyceride [Mass/Vol] 250 mg/dL <199 [facility] Comment on above: The drugs N-Acetylcy steine and Metamizole may falsely depress this assay.Serum Triglycerides Reference Interval Normal <150 mg/dL Borderline high 150 - 199 mg/dL High 200 - 499 mg/dL Very High > or = 500 mg/dL WBC (Bld) [#/Vol] 9.2 10*3/uL 4.4-11.0 [facility] Blood erythrocytes count (nu mber/volume)Ordered By: Marcia Campbell on 05-17-2023 RBC (Bld) [#/Vol] 4.11 10*6/uL 4.6-6.2 [facility] Blood hemoglobin measurement (mass/volume)Ordered By: Marcia Campbell on 05-17-2023 Hemoglobin (Bld) [Mass/Vol] 12.4 g/dL 13.0-16. 5 [facility] Blood lymphocytes/100 leukoc ytesOrdered By: Marcia Campbell on 05-17-2023 Lymphocytes/100 WBC (Bld) 24.7 % 19-41 [facility] Blood monocytes/100 leukocyt esOrdered By: Marcia Campbell on 05-17-2023 Monocytes/100 WBC (Bld) 8.2 % 0-10 [facility] Blood platelet mean volumeOr dered By: Marcia Campbell on 05-17-2023 Platelet mean volume (Bld) [Entitic vol] 10.4 fL 6.2-12.0 [facility] Determination of erythrocyte mean corpuscular volume (MCV)Ordered By: Marcia Campbell on 05-17-2023 MCV (RBC) [Entitic vol] 91.0 fL 80-94 [facility] Hematocrit Auto (Bld) [Volum e fraction]Ordered By: Marcia Campbell on 05-17-2023 Hematocrit (Bld) [Volume fraction] 37.4 % 40-54 [facility] Laboratory - Chemistry and C hemistry - challengeOrdered By: Marcia Campbell on 05-17-2023 ALP [Catalytic activity/Vol] 114 U/L 45-117 [facility] ALT [Catalytic activity/Vol] 42 U/L 16-61 [facility] CO2 [Moles/Vol] 27.0 mmol/L 21.0-32.0 [facility] Globulin (S) [Mass/Vol] 3.9 g/dL 2.2-4.2 [facility] Urea nitrogen/Creatinine [Mass ratio] 20.0 mg/mg 10-20 [facility] Laboratory - Hematology and Cell countsOrdered By: Marcia Campbell on 05-17-2023 Erythrocyte distribution width (RBC) [Entitic vol] 43.0 fL 35.1-43.9 [facility] Erythrocyte distribution width (RBC) [Ratio] 13.0 % 11.6-14.6 [facility] Immature granulocytes/100 WBC (Bld) 0.700 % 0.0-0.9 [facility] Comment on above: IG% - Immature Granu locytes (promyelocytes, myelocytes and metamyelocytes) > 1% indicates that a LEFT SHIFT is Present. MCH (RBC) [Entitic mass] 30.2 pg 27.0-32.0 [facility] Nucleated RBC/100 WBC (Bld) [Ratio] 0 % 0-5 [facility] MCHC Auto (RBC) [Mass/Vol]Or dered By: Marcia Campbell on 05-17-2023 MCHC (RBC) [Mass/Vol] 33.2 g/dL 32-36 [facility] No Panel InformationOrdered By: Marcia Campbell on 05-17-2023 Estimated GFR (MDRD) Amer 75 mL/min >60 [facility] Comment on above: GFR Calc Estimated GFR (MDRD) Non-Af Amer 62 mL/min >60 [facility] Comment on above: Non- GFR Calc Urine Microalbumin/Creatinine Ratio 10.7 mg/g CRE <30 [facility] Vitamin D 25-Hydroxy 25.4 ng/mL [facility] Comment on above: Vitamin D 25(OH) Sta tus Range Deficiency <20 ng/mL (50nmol/L) Insufficiency 20 - 30 ng/mL (50 - 75 nmol/L) Sufficiency 30 - 100 ng/mL (75 - 250 nmol/L) Toxicity >100 ng/mL (>250 nmol/L) Platelets bldOrdered By: Karthik Campbell on 05-17-2023 Platelets (Bld) [#/Vol] 232 10*3/uL 150-450 [facility] Serum or plasma albumin aleshia urement (mass/volume)Ordered By: Marcia Campbell on 05-17-2023 Albumin [Mass/Vol] 3.6 g/dL 3.2-5.0 [facility] Serum or plasma albumin/glob ulin mass ratioOrdered By: Marcia Campbell on 05-17-2023 Albumin/Globulin [Mass ratio] 0.9 {ratio} 0.9-2.4 [facility] Serum or plasma calcium aleshia urement (mass/volume)Ordered By: Marcia Campbell on 05-17-2023 Calcium [Mass/Vol] 8.8 mg/dL 8.5-10.1 [facility] Serum or plasma cholesterol in HDL measurement (mass/volume)Ordered By: Marcia Campbell on 05-17-2023 Cholesterol in HDL [Mass/Vol] 31 mg/dL >40 [facility] Comment on above: The drugs N-Acetylcy steine and Metamizole may falsely depress this assay. Reference Range HDL <40 mg/dL Low HDL Cholesterol HDL >or= 60 mg/dL High HDL Cholesterol Serum or plasma cholesterol in VLDL measurement (mass/volume)Ordered By: Marcia Campbell on 05-17-2023 Cholesterol in VLDL [Mass/Vol] 50 mg/dL 5-40 [facility] Serum or plasma creatinine m easurement (mass/volume)Ordered By: Marcia Campbell on 05-17-2023 Creatinine [Mass/Vol] 1.30 mg/dL 0.70-1.30 [facility] Comment on above: The validity of the calculated GFR & GFRAA in patients over 70 years has not been determined. Clinical correlation is essential. Serum or plasma low density lipoprotein (LDL) cholesterol measurement (mass/volume)Ordered By: Marcia Campbell on 05-17-2023 Cholesterol in LDL [Mass/Vol] 61 mg/dL 0-130 [facility] Serum or plasma urea nitroge n measurement (mass/volume)Ordered By: Marcia Campbell on 05-17-2023 Urea nitrogen [Mass/Vol] 26 mg/dL 7-18 [facility] Thin prep Papanicolaou smear with manual screeningOrdered By: Marcia Campbell on 05-17-2023 Thin prep Papanicolaou smear with manual screening 24 U/L 15-37 [facility] Thin prep Papanicolaou smear with manual screening 6 5-15 [facility] Thin prep Papanicolaou smear with manual screening 20.4 mg/L NO RANGE EST. [facility] Urine creatinine measurement (mass/volume)Ordered By: Marcia Campbell on 05-17-2023 Creatinine (U) [Mass/Vol] 190.00 mg/dL NO RANGE EST. [facility] Whole blood hemoglobin A1c/t otal hemoglobin ratio (mass fraction)Ordered By: Marcia Campbell on 05-17-2023 HbA1c (Bld) [Mass fraction] 8.1 % 3.8-5.6 [facility] Comment on above: Normal < 5.7 % Predi abetic 5.7 - 6.4 % Diabetic >or= 6.5 % Please note range changes. Laboratory - Chemistry and C hemistry - challengeOrdered By: Dr. Campbell on 01-02-2023 Transferrin [Mass/Vol] 252 mg/dL 177-329 [facility] Comment on above: Performed at: [address] Director: Garett Lema PhD, Phone: [phone] Absolute lymphocyte countOrd ered By: Dr. Campbell on 01-01-2023 Lymphocytes Auto (Unsp spec) [#/Vol] 2.38 10*3/uL 0.83-4.51 [facility] Basophil percentageOrdered B y: Dr. Campbell on 01-01-2023 Basophils/100 WBC (Bld) 0.4 % 0-1 [facility] Bilirubin [Mass/Vol] 0.40 mg/dL 0.20-1.00 [facility] Comment on above: For patients on eltr ombopag therapy, use of Dimension [place] TBIL is not recommended. Chloride [Moles/Vol] 107 mmol/L 98-107 [facility] Cholesterol [Mass/Vol] 147 mg/dL <200 [facility] Comment on above: <200 mg/dL Desirable 200-240 mg/dL Borderline >240 mg/dL High Risk Eosinophils/100 WBC (Bld) 3.4 % 0-5 [facility] Glucose [Mass/Vol] 121 mg/dL 74-106 [facility] Comment on above: Fasting Glucose resu lt from 100 to 125 mg/dL suggests IMPAIRED HOMEOSTASIS per A.D.A. criteria. Neutrophils (Bld) [#/Vol] 6.2 10*3/uL 2.0-7.7 [facility] Neutrophils/100 WBC (Bld) 63.5 % 47-70 [facility] Potassium [Moles/Vol] 3.6 mmol/L 3.5-5.1 [facility] Protein [Mass/Vol] 8.3 g/dL 6.4-8.2 [facility] Sodium [Moles/Vol] 141 mmol/L 136-145 [facility] Triglyceride [Mass/Vol] 237 mg/dL <199 [facility] Comment on above: The drugs N-Acetylcy steine and Metamizole may falsely depress this assay.Serum Triglycerides Reference Interval Normal <150 mg/dL Borderline high 150 - 199 mg/dL High 200 - 499 mg/dL Very High > or = 500 mg/dL WBC (Bld) [#/Vol] 9.7 10*3/uL 4.4-11.0 [facility] Blood erythrocytes count (nu mber/volume)Ordered By: Dr. Campbell on 01-01-2023 RBC (Bld) [#/Vol] 4.32 10*6/uL 4.6-6.2 [facility] Blood hemoglobin measurement (mass/volume)Ordered By: Dr. Campbell on 01-01-2023 Hemoglobin (Bld) [Mass/Vol] 12.8 g/dL 13.0-16. 5 [facility] Blood lymphocytes/100 leukoc ytesOrdered By: Dr. Campbell on 01-01-2023 Lymphocytes/100 WBC (Bld) 24.6 % 19-41 [facility] Blood monocytes/100 leukocyt esOrdered By: Dr. Campbell on 01-01-2023 Monocytes/100 WBC (Bld) 7.7 % 0-10 [facility] Blood platelet mean volumeOr dered By: Dr. Campbell on 01-01-2023 Platelet mean volume (Bld) [Entitic vol] 11.0 fL 6.2-12.0 [facility] Determination of erythrocyte mean corpuscular volume (MCV)Ordered By: Dr. Campbell on 01-01-2023 MCV (RBC) [Entitic vol] 91.0 fL 80-94 [facility] Hematocrit Auto (Bld) [Volum e fraction]Ordered By: Dr. Campbell on 01-01-2023 Hematocrit (Bld) [Volume fraction] 39.3 % 40-54 [facility] Iron measurement (mass/mass) Ordered By: Dr. Campbell on 01-01-2023 Iron (Unsp spec) [Mass/Mass] 56 ug/dL 65-175 [facility] Laboratory - Chemistry and C hemistry - challengeOrdered By: Dr. Campbell on 01-01-2023 ALP [Catalytic activity/Vol] 99 U/L 45-117 [facility] ALT [Catalytic activity/Vol] 37 U/L 16-61 [facility] CO2 [Moles/Vol] 26.0 mmol/L 21.0-32.0 [facility] Cobalamin (Vitamin B12) [Mass/Vol] 211 pg/mL 211-911 [facility] Globulin (S) [Mass/Vol] 4.6 g/dL 2.2-4.2 [facility] Urea nitrogen/Creatinine [Mass ratio] 21.1 mg/mg 10-20 [facility] Laboratory - Hematology and Cell countsOrdered By: Dr. Campbell on 01-01-2023 Erythrocyte distribution width (RBC) [Entitic vol] 44.7 fL 35.1-43.9 [facility] Erythrocyte distribution width (RBC) [Ratio] 13.4 % 11.6-14.6 [facility] Immature granulocytes/100 WBC (Bld) 0.400 % 0.0-0.9 [facility] Comment on above: IG% - Immature Granu locytes (promyelocytes, myelocytes and metamyelocytes) > 1% indicates that a LEFT SHIFT is Present. MCH (RBC) [Entitic mass] 29.6 pg 27.0-32.0 [facility] Nucleated RBC/100 WBC (Bld) [Ratio] 0 % 0-5 [facility] MCHC Auto (RBC) [Mass/Vol]Or dered By: Dr. Campbell on 01-01-2023 MCHC (RBC) [Mass/Vol] 32.6 g/dL 32-36 [facility] No Panel InformationOrdered By: Dr. Campbell on 01-01-2023 Estimated GFR (MDRD) Amer 92 mL/min >60 [facility] Comment on above: GFR Calc Estimated GFR (MDRD) Non-Af Amer 76 mL/min >60 [facility] Comment on above: Non- GFR Calc Total Iron Binding Capacity 301 ug/dL 250-450 [facility] Vitamin D 25-Hydroxy 36.1 ng/mL [facility] Comment on above: Vitamin D 25(OH) Sta tus Range Deficiency <20 ng/mL (50nmol/L) Insufficiency 20 - 30 ng/mL (50 - 75 nmol/L) Sufficiency 30 - 100 ng/mL (75 - 250 nmol/L) Toxicity >100 ng/mL (>250 nmol/L) Platelets bldOrdered By: Dr. Campbell on 01-01-2023 Platelets (Bld) [#/Vol] 235 10*3/uL 150-450 [facility] Serum or plasma albumin aleshia urement (mass/volume)Ordered By: Dr. Campbell on 01-01-2023 Albumin [Mass/Vol] 3.7 g/dL 3.2-5.0 [facility] Serum or plasma albumin/glob ulin mass ratioOrdered By: Dr. Campbell on 01-01-2023 Albumin/Globulin [Mass ratio] 0.8 {ratio} 0.9-2.4 [facility] Serum or plasma calcium aleshia urement (mass/volume)Ordered By: Dr. Campbell on 01-01-2023 Calcium [Mass/Vol] 9.2 mg/dL 8.5-10.1 [facility] Serum or plasma cholesterol in HDL measurement (mass/volume)Ordered By: Dr. Campbell on 01-01-2023 Cholesterol in HDL [Mass/Vol] 36 mg/dL >40 [facility] Comment on above: The drugs N-Acetylcy steine and Metamizole may falsely depress this assay. Reference Range HDL <40 mg/dL Low HDL Cholesterol HDL >or= 60 mg/dL High HDL Cholesterol Serum or plasma cholesterol in VLDL measurement (mass/volume)Ordered By: Dr. Campbell on 01-01-2023 Cholesterol in VLDL [Mass/Vol] 47 mg/dL 5-40 [facility] Serum or plasma creatinine m easurement (mass/volume)Ordered By: Dr. Campbell on 01-01-2023 Creatinine [Mass/Vol] 1.09 mg/dL 0.70-1.30 [facility] Comment on above: The validity of the calculated GFR & GFRAA in patients over 70 years has not been determined. Clinical correlation is essential. Serum or plasma ferritin ruben surement (mass/volume)Ordered By: Dr. Campbell on 01-01-2023 Ferritin [Mass/Vol] 114 ng/mL 26-388 [facility] Serum or plasma iron saturat ion measurement (mass fraction)Ordered By: Dr. Campbell on 01-01-2023 Iron saturation [Mass fraction] 18.6 % 15.0-55.0 [facility] Serum or plasma low density lipoprotein (LDL) cholesterol measurement (mass/volume)Ordered By: Dr. Campbell on 01-01-2023 Cholesterol in LDL [Mass/Vol] 64 mg/dL 0-130 [facility] Serum or plasma urea nitroge n measurement (mass/volume)Ordered By: Dr. Campbell on 01-01-2023 Urea nitrogen [Mass/Vol] 23 mg/dL 7-18 [facility] Thin prep Papanicolaou smear with manual screeningOrdered By: Dr. Campbell on 01-01-2023 Thin prep Papanicolaou smear with manual screening 20 U/L 15-37 [facility] Thin prep Papanicolaou smear with manual screening 8 5-15 [facility] Whole blood hemoglobin A1c/t otal hemoglobin ratio (mass fraction)Ordered By: Dr. Campbell on 01-01-2023 HbA1c (Bld) [Mass fraction] 7.1 % 3.8-5.6 [facility] Comment on above: Normal < 5.7 % Predi abetic 5.7 - 6.4 % Diabetic >or= 6.5 % Please note range changes. Absolute lymphocyte counton 08-14-2022 Lymphocytes Auto (Unsp spec) [#/Vol] 2.90 10*3/uL 0.83-4.51 [facility] Work Phone: Basophil percentageon 2021 Basophils/100 WBC (Bld) 0.5 % 0-1 [facility] Work Phone: [phone] Bilirubin [Mass/Vol] 0.50 mg/dL 0.20-1.00 [facility] Work Phone: Comment on above: For patients on eltr ombopag therapy, use of Dimension [place] TBIL is not recommended. Chloride [Moles/Vol] 101 mmol/L 98-107 [facility] Work Phone: Cholesterol [Mass/Vol] 150 mg/dL <200 [facility] Work Phone: Comment on above: <200 mg/dL Desirable 200-240 mg/dL Borderline >240 mg/dL High Risk Eosinophils/100 WBC (Bld) 3.1 % 0-5 [facility] Work Phone: Glucose [Mass/Vol] 233 mg/dL 74-106 [facility] Work Phone: Comment on above: Glucose result great er than or equal to 200 mg/dLsuggests DIABETES MELLITUS per A.D.A. criteria. Neutrophils (Bld) [#/Vol] 5.9 10*3/uL 2.0-7.7 [facility] Work Phone: Neutrophils/100 WBC (Bld) 59.2 % 47-70 [facility] Work Phone: Potassium [Moles/Vol] 3.8 mmol/L 3.5-5.1 [facility] Work Phone: Protein [Mass/Vol] 7.5 g/dL 6.4-8.2 [facility] Work Phone: Sodium [Moles/Vol] 138 mmol/L 136-145 [facility] Work Phone: [phone] Triglyceride [Mass/Vol] 256 mg/dL <199 [facility] Work Phone: Comment on above: The drugs N-Acetylcy steine and Metamizole may falsely depress this assay.Serum Triglycerides Reference Interval Normal <150 mg/dL Borderline high 150 - 199 mg/dL High 200 - 499 mg/dL Very High > or = 500 mg/dL WBC (Bld) [#/Vol] 10.0 10*3/uL 4.4-11.0 [facility] Work Phone: Blood erythrocytes count (nu mber/volume)on 08-14-2022 RBC (Bld) [#/Vol] 4.41 10*6/uL 4.6-6.2 [facility] Work Phone: Blood hemoglobin measurement (mass/volume)on 08-14-2022 Hemoglobin (Bld) [Mass/Vol] 13.2 g/dL 13.0-16. 5 [facility] Work Phone: Blood lymphocytes/100 leukoc yteson 08-14-2022 Lymphocytes/100 WBC (Bld) 29.0 % 19-41 [facility] Work Phone: [phone] Blood monocytes/100 leukocyt eson 08-14-2022 Monocytes/100 WBC (Bld) 7.7 % 0-10 [facility] Work Phone: Blood platelet mean volumeon 08-14-2022 Platelet mean volume (Bld) [Entitic vol] 10.3 fL 6.2-12.0 [facility] Work Phone: Determination of erythrocyte mean corpuscular volume (MCV)on 08-14-2022 MCV (RBC) [Entitic vol] 90.7 fL 80-94 [facility] Work Phone: [phone] Hematocrit Auto (Bld) [Volum e fraction]on 08-14-2022 Hematocrit (Bld) [Volume fraction] 40.0 % 40-54 [facility] Work Phone: Laboratory - Chemistry and C hemistry - challengeon 08-14-2022 ALP [Catalytic activity/Vol] 100 U/L 45-117 [facility] Work Phone: [phone] ALT [Catalytic activity/Vol] 36 U/L 16-61 [facility] Work Phone: [phone] CO2 [Moles/Vol] 28.0 mmol/L 21.0-32.0 [facility] Work Phone: [phone] Globulin (S) [Mass/Vol] 3.8 g/dL 2.2-4.2 [facility] Work Phone: [phone] Urea nitrogen/Creatinine [Mass ratio] 21.0 mg/mg 10-20 [facility] Work Phone: [phone] Laboratory - Hematology and Cell countson 08-14-2022 Erythrocyte distribution width (RBC) [Entitic vol] 44.5 fL 35.1-43.9 [facility] Work Phone: [phone] Erythrocyte distribution width (RBC) [Ratio] 13.4 % 11.6-14.6 [facility] Work Phone: [phone] Immature granulocytes/100 WBC (Bld) 0.500 % 0.0-0.9 [facility] Work Phone: [phone] Comment on above: IG% - Immature Granu locytes (promyelocytes, myelocytes and metamyelocytes) > 1% indicates that a LEFT SHIFT is Present. MCH (RBC) [Entitic mass] 29.9 pg 27.0-32.0 [facility] Work Phone: [phone] Nucleated RBC/100 WBC (Bld) [Ratio] 0 % 0-5 [facility] Work Phone: [phone] MCHC Auto (RBC) [Mass/Vol]on 08-14-2022 MCHC (RBC) [Mass/Vol] 33.0 g/dL 32-36 [facility] Work Phone: [phone] Panel Informationon 08-14 Estimated GFR (MDRD) Amer 83 mL/min >60 [facility] Work Phone: [phone] Comment on above: GFR Calc Estimated GFR (MDRD) Non-Af Amer 69 mL/min >60 [facility] Work Phone: Comment on above: Non- GFR Calc Urine Microalbumin/Creatinine Ratio 10.5 mg/g CRE <30 [facility] Work Phone: Vitamin D 25-Hydroxy 24.4 ng/mL [facility] Work Phone: Comment on above: Vitamin D 25(OH) Sta tus Range Deficiency <20 ng/mL (50nmol/L) Insufficiency 20 - 30 ng/mL (50 - 75 nmol/L) Sufficiency 30 - 100 ng/mL (75 - 250 nmol/L) Toxicity >100 ng/mL (>250 nmol/L) Platelets bldon 08-14-2022 Platelets (Bld) [#/Vol] 288 10*3/uL 150-450 [facility] Work Phone: Serum or plasma albumin aleshia urement (mass/volume)on 08-14-2022 Albumin [Mass/Vol] 3.7 g/dL 3.2-5.0 [facility] Work Phone: [phone] Serum or plasma albumin/glob ulin mass ratioon 08-14-2022 Albumin/Globulin [Mass ratio] 1.0 {ratio} 0.9-2.4 [facility] Work Phone: Serum or plasma calcium aleshia urement (mass/volume)on 08-14-2022 Calcium [Mass/Vol] 8.8 mg/dL 8.5-10.1 [facility] Work Phone: Serum or plasma cholesterol in HDL measurement (mass/volume)on 08-14-2022 Cholesterol in HDL [Mass/Vol] 36 mg/dL >40 [facility] Work Phone: Comment on above: The drugs N-Acetylcy steine and Metamizole may falsely depress this assay. Reference Range HDL <40 mg/dL Low HDL Cholesterol HDL >or= 60 mg/dL High HDL Cholesterol Serum or plasma cholesterol in VLDL measurement (mass/volume)on 08-14-2022 Cholesterol in VLDL [Mass/Vol] 51 mg/dL 5-40 [facility] Work Phone: [phone] Serum or plasma creatinine m easurement (mass/volume)on 08-14-2022 Creatinine [Mass/Vol] 1.19 mg/dL 0.70-1.30 [facility] Work Phone: Comment on above: The validity of the calculated GFR & GFRAA in patients over 70 years has not been determined. Clinical correlation is essential. Serum or plasma low density lipoprotein (LDL) cholesterol measurement (mass/volume)on 08-14-2022 Cholesterol in LDL [Mass/Vol] 63 mg/dL 0-130 [facility] Work Phone: Serum or plasma urea nitroge n measurement (mass/volume)on 08-14-2022 Urea nitrogen [Mass/Vol] 25 mg/dL 7-18 [facility] Work Phone: Thin prep Papanicolaou smear with manual screeningon 08-14-2022 Thin prep Papanicolaou smear with manual screening 18 U/L 15-37 [facility] Work Phone: Thin prep Papanicolaou smear with manual screening 9 5-15 [facility] Work Phone: Thin prep Papanicolaou smear with manual screening 21.9 mg/L NO RANGE EST. [facility] Work Phone: Urine creatinine measurement (mass/volume)on 08-14-2022 Creatinine (U) [Mass/Vol] 208.00 mg/dL NO RANGE EST. [facility] Work Phone: Whole blood hemoglobin A1c/t otal hemoglobin ratio (mass fraction)on 08-14-2022 HbA1c (Bld) [Mass fraction] 6.6 % 3.8-5.6 [facility] Work Phone: Comment on above: Normal < 5.7 % Predi abetic 5.7 - 6.4 % Diabetic >or= 6.5 % Please note range changes. KNEE WO RTon 06-13-2022 MR KNEE WO RT [address] [address] Patient: AMINAJUNE KEEGAN Gaby Phone#: : 1970 Age: 51 Gender: M Pt. Type: Out Account: [id number] Location: Ordering: [facility] TORRES Exam Date: 06/13/2022/7:56 Family Phys: MARCIA CAMPBELL Charge Code: 435196 Physician: [place] Order #: [id number] Dose#: PROCEDURE: MRI KNEE RT WITHOUT CONTRAST COMPARISON: None. INDICATIONS: Right knee effusion TECHNIQUE: A complete multi-planar MRI was performed. FINDINGS: MEDIAL COMPARTMENT MEDIAL MENISCUS: Oblique tear of the posterior horn is present extending to the tibial articular cartilage. HYALINE CARTILAGE: Normal. No visible defect. BONES: Normal. No marrow pathology, fracture, or significant arthropathy. MCL AND MEDIAL CAPSULE: Normal medial collateral ligament and medial capsule. LATERAL COMPARTMENT LATERAL MENISCUS: Normal. No visible tear or significant degeneration. HYALINE CARTILAGE: Normal. No visible defect. BONES: Normal. No marrow pathology, fracture, or significant arthropathy. LCL/POSTEROLAT. COMPLEX: Normal lateral collateral ligament, fascicles, lateral capsule and ligaments. ACL: There is partial tear of the ACL. Residual fibers are identified. PCL: There is longitudinal tear of the proximal PCL. MENISCOFEMORAL: Normal meniscofemoral ligaments. PATELLOFEMORAL: Normal. EFFUSION: Moderate to large joint effusion is present. OTHER: Negative. CONCLUSION: 1. Tear of the posterior horn of the medial meniscus 2. Partial tear of the ACL. 3. Moderate joint effusion. 4. Longitudinal tear of the PCL. [place] [address] Patient: KEEGAN PAZ Phone#: : 1970 Age: 51 Gender: M Pt. Type: Out Account: [id number] Location: Ordering: FARIDA TORRES Exam Date: 06/13/2022/7:56 Family Phys: MARCIA CAMPBELL Charge Code: 224442 Physician: [place] Order #: [id number] Dose#: Dictated by: Sydnee Martin MD on 06/13/2022 at 17:15 Approved by: Sydnee Martin MD on 06/13/2022 at 17:25 Normal [facility] Absolute lymphocyte counton 01-10-2022 Lymphocytes Auto (Unsp spec) [#/Vol] 2.18 10*3/uL 0.83-4.51 [facility] Work Phone: Basophil percentageon 2021 Basophils/100 WBC (Bld) 0.5 % 0-1 [facility] Work Phone: Bilirubin [Mass/Vol] 0.50 mg/dL 0.20-1.00 [facility] Work Phone: Comment on above: For patients on eltr ombopag therapy, use of Dimension [place] TBIL is not recommended. Chloride [Moles/Vol] 105 mmol/L 98-107 [facility] Work Phone: Cholesterol [Mass/Vol] 147 mg/dL <200 [facility] Work Phone: Comment on above: <200 mg/dL Desirable 200-240 mg/dL Borderline >240 mg/dL High Risk Eosinophils/100 WBC (Bld) 3.5 % 0-5 [facility] Work Phone: Glucose [Mass/Vol] 146 mg/dL 74-106 [facility] Work Phone: Comment on above: Fasting Glucose resu lt greater than or equal to 126 mg/dL suggests DIABETES MELLITUS per A.D.A. criteria. Neutrophils (Bld) [#/Vol] 5.4 10*3/uL 2.0-7.7 [facility] Work Phone: Neutrophils/100 WBC (Bld) 62.8 % 47-70 [facility] Work Phone: Potassium [Moles/Vol] 3.8 mmol/L 3.5-5.1 [facility] Work Phone: Protein [Mass/Vol] 7.9 g/dL 6.4-8.2 [facility] Work Phone: Sodium [Moles/Vol] 140 mmol/L 136-145 [facility] Work Phone: Triglyceride [Mass/Vol] 286 mg/dL [facility] Work Phone: [phone] Comment on above: The drugs N-Acetylcy steine and Metamizole may falsely depress this assay.Serum Triglycerides Reference Interval Normal <150 mg/dL Borderline high 150 - 199 mg/dL High 200 - 499 mg/dL Very High > or = 500 mg/dL WBC (Bld) [#/Vol] 8.6 10*3/uL 4.4-11.0 [facility] Work Phone: [phone] Blood erythrocytes count (nu mber/volume)on 01-10-2022 RBC (Bld) [#/Vol] 4.59 10*6/uL 4.6-6.2 [facility] Work Phone: [phone] Blood hemoglobin measurement (mass/volume)on 01-10-2022 Hemoglobin (Bld) [Mass/Vol] 13.8 g/dL 13.0-16. 5 [facility] Work Phone: [phone] Blood lymphocytes/100 leukoc yteson 01-10-2022 Lymphocytes/100 WBC (Bld) 25.3 % 19-41 [facility] Work Phone: [phone] Blood monocytes/100 leukocyt eson 01-10-2022 Monocytes/100 WBC (Bld) 7.6 % 0-10 [facility] Work Phone: [phone] Blood platelet mean volumeon 01-10-2022 Platelet mean volume (Bld) [Entitic vol] 10.4 fL 6.2-12.0 [facility] Work Phone: [phone] Determination of erythrocyte mean corpuscular volume (MCV)on 01-10-2022 MCV (RBC) [Entitic vol] 91.1 fL 80-94 [facility] Work Phone: [phone] Hematocrit Auto (Bld) [Volum e fraction]on 01-10-2022 Hematocrit (Bld) [Volume fraction] 41.8 % 40-54 [facility] Work Phone: [phone] Laboratory - Chemistry and C hemistry - challengeon 01-10-2022 ALP [Catalytic activity/Vol] 100 U/L 45-117 [facility] Work Phone: [phone] ALT [Catalytic activity/Vol] 44 U/L 16-61 [facility] Work Phone: [phone] CO2 [Moles/Vol] 26.0 mmol/L 21.0-32.0 [facility] Work Phone: [phone] Globulin (S) [Mass/Vol] 4.1 g/dL 2.2-4.2 [facility] Work Phone: [phone] Urea nitrogen/Creatinine [Mass ratio] 12.0 mg/mg 10-20 [facility] Work Phone: [phone] Laboratory - Hematology and Cell countson 01-10-2022 Erythrocyte distribution width (RBC) [Entitic vol] 43.3 fL 35.1-43.9 [facility] Work Phone: [phone] Erythrocyte distribution width (RBC) [Ratio] 13.0 % 11.6-14.6 [facility] Work Phone: [phone] Immature granulocytes/100 WBC (Bld) 0.300 % 0.0-0.9 [facility] Work Phone: [phone] Comment on above: IG% - Immature Granu locytes (promyelocytes, myelocytes and metamyelocytes) > 1% indicates that a LEFT SHIFT is Present. MCH (RBC) [Entitic mass] 30.1 pg 27.0-32.0 [facility] Work Phone: [phone] Nucleated RBC/100 WBC (Bld) [Ratio] 0 % 0-5 [facility] Work Phone: [phone] MCHC Auto (RBC) [Mass/Vol]on 01-10-2022 MCHC (RBC) [Mass/Vol] 33.0 g/dL 32-36 [facility] Work Phone: [phone] Panel Informationon 01-10 Estimated GFR (MDRD) Amer 57 mL/min >60 [facility] Work Phone: [phone] Comment on above: GFR Calc Estimated GFR (MDRD) Non-Af Amer 47 mL/min >60 [facility] Work Phone: Comment on above: Non- GFR Calc Vitamin D 25-Hydroxy 26.3 ng/mL [facility] Work Phone: Comment on above: Vitamin D 25(OH) Sta tus Range Deficiency <20 ng/mL (50nmol/L) Insufficiency 20 - 30 ng/mL (50 - 75 nmol/L) Sufficiency 30 - 100 ng/mL (75 - 250 nmol/L) Toxicity >100 ng/mL (>250 nmol/L) Platelets bldon 01-10-2022 Platelets (Bld) [#/Vol] 237 10*3/uL 150-450 [facility] Work Phone: Serum or plasma albumin aleshia urement (mass/volume)on 01-10-2022 Albumin [Mass/Vol] 3.8 g/dL 3.2-5.0 [facility] Work Phone: Serum or plasma albumin/glob ulin mass ratioon 01-10-2022 Albumin/Globulin [Mass ratio] 0.9 {ratio} 0.9-2.4 [facility] Work Phone: Serum or plasma calcium aleshia urement (mass/volume)on 01-10-2022 Calcium [Mass/Vol] 9.4 mg/dL 8.5-10.1 [facility] Work Phone: Serum or plasma cholesterol in HDL measurement (mass/volume)on 01-10-2022 Cholesterol in HDL [Mass/Vol] 31 mg/dL [facility] Work Phone: Comment on above: The drugs N-Acetylcy steine and Metamizole may falsely depress this assay. Reference Range HDL <40 mg/dL Low HDL Cholesterol HDL >or= 60 mg/dL High HDL Cholesterol Serum or plasma cholesterol in VLDL measurement (mass/volume)on 01-10-2022 Cholesterol in VLDL [Mass/Vol] 57 mg/dL 5-40 [facility] Work Phone: Serum or plasma creatinine m easurement (mass/volume)on 01-10-2022 Creatinine [Mass/Vol] 1.66 mg/dL 0.70-1.30 [facility] Work Phone: Comment on above: The validity of the calculated GFR & GFRAA in patients over 70 years has not been determined. Clinical correlation is essential. Serum or plasma low density lipoprotein (LDL) cholesterol measurement (mass/volume)on 01-10-2022 Cholesterol in LDL [Mass/Vol] 59 mg/dL 0-130 [facility] Work Phone: Serum or plasma urea nitroge n measurement (mass/volume)on 01-10-2022 Urea nitrogen [Mass/Vol] 20 mg/dL 7-18 [facility] Work Phone: Thin prep Papanicolaou smear with manual screeningon 01-10-2022 Thin prep Papanicolaou smear with manual screening 28 U/L 15-37 [facility] Work Phone: Thin prep Papanicolaou smear with manual screening 9 5-15 [facility] Work Phone: Whole blood hemoglobin A1c/t otal hemoglobin ratio (mass fraction)on 01-10-2022 HbA1c (Bld) [Mass fraction] 6.5 % 3.8-5.6 [facility] Work Phone: Comment on above: Normal < 5.7 % Predi abetic 5.7 - 6.4 % Diabetic >or= 6.5 % Please note range changes. Vital Signs Date Time Vital Sign Value Performing Clinician Faci lity 01-30-2023 08:32-0400 Body height 182.[address] Marcia Campbell Work Phone: [facility] 01-30-2023 08:32-0400 Body mass index (BMI) [Ratio] 49.5 kg/m2 Dr. Marcia Campbell Work Phone: [facility] 01-30-2023 08:32-0400 Body temperature 97.7 [degF] Dr. Marcia Campbell Work Phone: [facility] 01-30-2023 08:32-0400 Body weight 165.[address] Marcia Campbell Work Phone: [facility] 01-30-2023 08:32-0400 Diastolic blood pressure 93 mm[Hg] Dr. Marcia Campbell Work Phone: [facility] 01-30-2023 08:32-0400 Heart rate 93 /min Dr. Marcia Campbell Work Phone: [facility] 01-30-2023 08:32-0400 Respiratory rate 20 /min Dr. Marcia Campbell Work Phone: [facility] 01-30-2023 08:32-0400 SaO2% (BldA) [Mass fraction] 98 % Dr. Marcia Campbell Work Phone: [facility] 01-30-2023 08:32-0400 Systolic blood pressure 144 mm[Hg] Dr. Marcia Campbell Work Phone: [facility] 06-05-2022 02:09-0400 Body height 185.42 cm [facility] Work Phone: 06-05-2022 02:09-0400 Body mass index (BMI) [Ratio] 47.5 kg/m2 [facility] Work Phone: 06-05-2022 02:09-0400 Body temperature 97.9 [degF] [facility] Work Phone: 06-05-2022 02:09-0400 Body weight 163.6 kg [facility] Work Phone: 06-05-2022 02:09-0400 Diastolic blood pressure 91 mm[Hg] [facility] Work Phone: 06-05-2022 02:09-0400 Heart rate 93 /min [facility] Work Phone: 06-05-2022 02:09-0400 Respiratory rate 18 /min [facility] Work Phone: 06-05-2022 02:09-0400 SaO2% (BldA) [Mass fraction] 98 % [facility] Work Phone: 06-05-2022 02: Systolic blood pressure 151 mm[Hg] [facility] Work Phone: Encounters Encounter Date Encounter Type Care Provider Facility Start: 09-22-2024 End: 09-22-2024 ambulatory Marcia Campbell Facility:[facility] Start: 07-03-2024 End: 07-03-2024 ambulatory Marcia Campbell Facility:[facility] Start: 01-22-2024 End: 01-22-2024 ambulatory Marcia Campbell Facility:[facility] Start: 09-10-2023 End: 09-10-2023 ambulatory [facility] Work Phone: Start: 09-10-2023 End: 09-10-2023 Patient encounter procedure [facility] Start: 05-17-2023 End: 05-17-[address] Marcia Campbell Work Phone: [facility] Work Phone: Start: 05-17-2023 End: 05-17-[address] Marcia Campbell Work Phone: [facility] Start: 01-30-2023 End: 01-30-[address] Marcia Campbell Work Phone: [facility] Work Phone: Start: 01-01-2023 End: 01-01-2023 ambulatory [facility] Work Phone: Start: 01-01-2023 End: 01-01-2023 Patient encounter procedure [facility] Start: 08-14-2022 End: 08-14-2022 ambulatory [facility] Work Phone: Start: 08-14-2022 End: 08-14-2022 Patient encounter procedure [facility] Start: 07-04-2022 End: 07-04-2022 ambulatory [facility] Work Phone: Start: 07-04-2022 End: 07-04-2022 Discharged Recurring [facility] Start: 06-13-2022 End: 06-13-2022 ambulatory MARCIA Bills [facility] Start: 06-05-2022 End: 06-05-2022 Emergency department patient visit [facility] Start: 01-10-2022 End: 01-10-2022 Patient encounter procedure [facility] Procedures Date Procedure Procedure Detail Performing Clinician Start: 06-05-2022 Radiologic examinati on of knee Plan of Treatment Date Care Activity Detail Author Colonoscopy [facility] Patient Education ED Knee Effusion [facility] Work Phone: Patient referral [facility] Work Phone: Payers Date Payer Category Payer Self-pay [id number] 2020 Unknown [id number] 1970 Unknown [id number] Unknown [id number] Unknown [id number] Unknown [id number] Social History Date Type Detail Facility Start: 11-27-2020 End: 01-30-2023 Tobacco smoking status NHIS Unknown if ever smoked [facility] Start: 10-21-2018 Occasional [facility] Start: 10-21-2018 None [facility] Start: 10-21-2018 With Family [facility] Start: 10-28-2018 Non-smoker [facility] Start: 1970 Sex Assigned At Male [facility] Evaluation note Note Date & Type Note Facility Evaluation note No assessment information availa ble [facility] Work Phone: Evaluation note Note Date & Type Note Facility Evaluation note Diagnosis Onset Date Anemia noneactive [facility] Work Phone: Family History No Family History Records Found Relationship Condition Age at Onset Recorded Date/T riki Unknown Family History?Cancer, Diabetes Unknown January 17, 2019 10:17pm Family History?Hypertension Unknown October 21, 2018 4:35pm Family History?Hypertension Unknown January 17, 2019 10:17pm Relationship Condition Age at Onset Recorded Date/T riki Unknown Family History?Cancer, Diabetes Unknown January 17, 2019 9:17pm Family History?Hypertension Unknown October 21, 2018 3:35pm Family History?Hypertension Unknown January 17, 2019 9:17pm Advance Directives No Advanced Directives Records Found Advance Directive Response Recorded Date/ Time Living Will No November 27, 2020 8:28pm Power of Accounting Administrator No November 27 8:28pm Advance Directive Response Recorded Date/ Time Living Will No June 05 2:09am Power of Accounting Administrator No June 05, 2022 2:09am Advance Directive Response Recorded Date/ Time Living Will No June 05 1:09am Power of Accounting Administrator No June 05, 2022 1:09am Chief Complaint and Reason for Visit Chief Complaint R knee pain Chief Complaint R knee pain RT KNEE. RX HERE Chief Complaint EORDER Chief Complaint Anemia Reason for Visit Anemia Summary Purpose Additional Source Comments Goals (unrecognized section and content) Goals may be documented in a n alternate sectionGoals may be documented in an alternate sectionGoals may be documented in an alternate sectionGoals may be documented in an alternate sectionGoals may be documented in an alternate sectionGoals may be documented in an alternate sectionGoals may be documented in an alternate section (unrecognized sect ion and content) No Status Records FoundNo Status Records Found INFORMATION SOURCE (unrecogn ized section and content) DATE CREATED AUTHOR 06/18/2022 Sanju Aparicio [facility] DATE CREATED AUTHOR AUTHOR'S ORGANIZ ATION 10/11/2024 [facility] Care Teams (unrecognized sec tion and content) Team Status: Active Member Role Status Dates Dr. Marcia Campbell MD Family Provider Active Dr. Marcia Campbell MD Primary Care Provider Active Team Status: Inactive Member Role Status Dates Dr. Marcia Campbell MD Primary Care Pr ovider, Attending Provider, Referring Provider Active Team Status: Inactive Member Role Status Dates Dr. Marcia Campbell MD Primary Care Provider, Referr ing Provider Active Dr. Zhou Thompson MD Attending Provider Active Team Status: Inactive Member Role Status Dates Dr. Marcia Campbell MD Primary Care Provider, Attend ing Provider Active FOR RECORDS PERTAINING TO PATIENTS WHO ARE [...] BE BASED ON THE PRIMARY CLINICAL RECORDS. [facility] [employer] [facility]. provides no warranty or guarantee of the accuracy or completeness of information in this document.
[2025-08-25 17:26] LABS: Hematocrit 43.2 % (40-54); Hemoglobin 14.7 g/dL (13.0-16.5); Immature Granulocytes Count 0.030 X10^3/uL (0.0-0.0); Mean Corp Hgb Conc 34.0 g/dL (32-36); Mean Corpuscular Volume 88.2 fL (80-94); Mean Platelet Vol. 10.4 fl (6.2-12.0); NRBC Flagged by Analyzer 0 % (0-5); Platelet Count 214 K/mm3 (150-450); RBC Distribution Width CV 12.8 % (11.6-14.6); RBC Distribution Width SD 41.2 fl (35.1-43.9); Red Blood Count 4.90 M/mm3 (4.6-6.2); White Blood Count 8.6 K/mm3 (4.4-11.0)
[2025-08-25 17:40] LABS: Creatinine, Urine (random) 75.00 mg/dL (39.00-259.00); Microalbumin,Random Urine 82.8 mg/L (<20 mg/L); Protein, Urine (Random) 19.8 mg/dL (0.0-12.0); Protein:Creat Ratio 264 mg/g CRE (0-200)
[2025-08-25 18:05] LABS: AST(SGOT) 30 U/L (<=37); Alanine Aminotransfer ALT/SGPT 46 U/L (<=46); Albumin, Serum 4.3 g/dL (3.5-5.0); Alkaline Phosphatase 119 U/L (40-129); Anion Gap 13 (7-18); BUN 20 mg/dL (4-19); BUN/Creat Ratio 18.9 RATIO (10-20); Calcium,Total 9.8 mg/dL (7.6-11.0); Carbon Dioxide 25.7 mmol/L (20.0-29.0); Chloride 96 mmol/L (96-106); Cholesterol 178 mg/dL (<=200); Globulin 3.2 g/dL (2.2-4.2); Glucose 383 mg/dL (70-99); Low Density Lipoprotein Calc. 66 mg/dL; Potassium 3.5 mmol/L (3.5-5.1); Triglycerides 522 mg/dL; Very Low Density Lipoprotein 104 mg/dL (5-40); Vitamin D,25 Hydroxy 18.3 ng/mL (30-100); cholesterol:hdl ratio screen 5.53
[2025-08-25 18:17] LABS: Color, Urine Straw (Yellow); Glucose, Dipstick 1000 mg/dl (Normal); Ketone-Dipstick Negative (Negative); Leukocyte Esterase-Dipstick Negative /ul (Negative); Nitrite-Dipstick Negative (Negative); Occult Blood-Urine Negative /ul (Negative); Protein-Dipstick 30 mg/dl (Negative); Specific Gravity, Urine 1.015 (1.002-1.030); Urine Bilirubin Dipstick Negative (Negative)
[2025-08-25 19:13] LABS: Squamous Epithelial Cells - UA 5-10 SEEN /hpf (0-5)
[2025-08-25 19:14] LABS: Red Blood Cells-Urine 0-5 SEEN /hpf (0-5)
== END 2025-08-25 23:59 | disposition home or self-care (01) ==
LOC: MFPLAB 15:59
PROVIDERS: PCP Family Medicine; Visit Provider Family Medicine
DX: E11.29 Type 2 diabetes mellitus with other diabetic kidney complication (principal)
CPT/HCPCS: 36415; 80053; 80061; 81001; 82043; 82306; 82570; 83036; 84156; 85025